=== PATIENT | female | born 1995 | race Caucasian/White ===

== ENCOUNTER → 2017-09-18 10:10 | Outpatient (CLI) | payer OTHER, SELFPAY ==
--- NOTE | 2017-09-18 10:42 | MR_ITS ---
MR knee RT wo con HISTORY: Right knee pain anterior posterior medial and lateral ITS.REASON: RIGHT MEDIAL KNEE PAIN ORDERING PHYSICIAN: Kylie Reynoso PATIENT AGE: 22 years COMPARISON: 09/04/2015 TECHNIQUE: Standard multiplanar multiecho sequences are performed without contrast. FINDINGS: The cruciate ligaments, collateral ligaments, patellar tendon, and quadriceps tendon have an unremarkable appearance. No evidence of meniscal tear. The patellar cartilage is well-preserved. No significant effusion. IMPRESSION: Negative MRI of the right knee. No evidence of internal derangement
== END ==
PROVIDERS: Family Provider Family Medicine; PCP Nurse Practitioner; Visit Provider Nurse Practitioner
DX: M25.561 Pain in right knee (principal)
CPT/HCPCS: 73721

== ENCOUNTER 2020-11-08 16:47 | Emergency (ER) | payer MEDICAID, SELFPAY ==
[2020-11-08 17:13] VITALS: BP 146/93; PULSE 104; RESP 17; TEMP 36.9; O2SAT 97; BMI 44.4
[2020-11-08 17:20] VITALS: BP 146/93; PULSE 104; RESP 17; TEMP 36.9; O2SAT 97
--- NOTE | 2020-11-08 17:39 | HMH.EDUTC ---
[facility] [place] Disposition Clinical Impression: Acute bronchitis Qualifiers: Bronchitis organism: unspecified organism Qualified Code(s): J20.9 - Acute bronchitis, unspecified Sinusitis Qualifiers: Sinusitis location: unspecified location Chronicity: acute Recurrence: non-recurrent Qualified Code(s): J01.90 - Acute sinusitis, unspecified Disposition: Home, Self-Care Condition on Discharge: Good Instructions: DI for Sinusitis, DI for Acute Bronchitis Additional Instructions: Drink plenty of fluids. Take tylenol or ibuprofen for pain or fever. Take the medications as directed. Follow up with your regular doctor. GO TO THE ER FOR ANY WORSENING SYMPTOMS Prescriptions: Brompheniramine/Pseudoephed/Dm [Bromfed Dm Cough Syrup] 5 ml PO Q6HP PRN #240 syrup PRN Reason: Cough Transmission Status: Received by [facility] methylPREDNISolone [Medrol] 4 mg PO DIRECTED 6 Days #21 tab.ds.pk Transmission Status: Received by [facility] Azithromycin [Z-Jose De Jesus 250mg Tab*] 250 mg PO UD DOSE PK #6 tab Transmission Status: Received by [facility] Referrals: Shailesh Nelson MD [Primary Care Provider] - Forms: Work/School Release Time of Disposition: 17:45 Medical Decision Making - Medical Records Medical records reviewed: No: I reviewed the patient's medical records. - Fady Inquiry Pt receiving controlled substance: No Vital Signs: 11/08/20 17:13 11/08/20 17:20 Temperature 98.4 F 98.4 F Temperature Source Oral Pulse Rate 104 H Pulse Rate [Left] 104 H Respiratory Rate 17 17 Blood Pressure 146/93 H Blood Pressure [Right Arm] 146/93 H Blood Pressure Mean [Right Arm] 110 02 Sat by Pulse Oximetry 97 [facility] [place] HPI - General Stated complaint: Productive cough,hoarse Time Seen by Provider: 11/08/20 17:39 Mode of Arrival: Ambulatory Source of Information: Patient Limitations: No Limitations Description of Symptoms (Recalled from Triage Doc. by RN): Pt states jeff she has sinus trouble with productive cough with large amount of phlegm, sore throat and congestion. Hx of Asthma. HEENT Symptoms (Recalled from RN notes): Yes Resp Symptoms (Recalled from RN notes): Yes Skin Symptoms (Recalled from RN notes): No MS Symptoms (Recalled from RN notes): No Functional Status (Recalled from RN notes): wnl - History of Present Illness Provider Complaint: She states that for the past 3 days she has had worsening chest and sinus congestion. She has a history of astham, so she is afraid that she will get sicker than she already is. She has been vaccinated against covid-19. - Related Data Home Medications Medication Instructions Recorded Confirmed drospirenone 3 mg-ethinyl 1 tab PO DAILY 02/09/19 04/16/19 estradiol 0.03 mg tablet hydrochlorothiazide 25 mg tablet 25 mg PO DAILY 02/09/19 04/16/19 Previous Rx's Medication Instructions Recorded Azithromycin [Z-Jose De Jesus 250mg Tab*] 250 mg PO UD DOSE PK #6 tab 11/08/20 Brompheniramine/Pseudoephed/Dm 5 ml PO Q6HP PRN #240 syrup 11/08/20 [Bromfed Dm Cough Syrup] methylPREDNISolone [Medrol] 4 mg PO DIRECTED 6 Days #21 11/08/20 tab.ds.pk Allergies Allergy/AdvReac Type Severity Reaction Status Date / Time No Known Allergies Allergy Verified 11/08/20 17:20 - Worker's Comp Is this a Worker's Comp case?: No [facility] History - Hepatitis A Screen Drug use history?: No High risk sexual behaviors?: No History of sexually transmitted infection?: No Currently employed?: No Childcare worker?: No Do you have indoor plumbing?: Yes Do you have electricity?: Yes Attestation statement:: This patient has been screened for Hepatitis A risk factors. I have reviewed the patient's past medical history: Yes Laterality Cases: Bilateral: Myringotomy (Ear Tubes) Other Surgeries: Yes: No Previous Surgery - Social History Smoking Status: Never smoker Alcohol Intake: never Substance Use Type: denies use Occupational Status: other Housing: house Househ
== END 2020-11-08 17:47 | disposition home or self-care (01) ==
PROVIDERS: Emergency Provider Nurse Practitioner Family; PCP Family Medicine
DX: J20.9 Acute bronchitis, unspecified (principal); J01.90 Acute sinusitis, unspecified; J45.909 Unspecified asthma, uncomplicated
CPT/HCPCS: 99202; G0463

== ENCOUNTER 2020-11-18 17:31 | Emergency (ER) | payer MEDICAID, SELFPAY ==
[2020-11-18 18:16] VITALS: BP 143/76; PULSE 108; RESP 20; TEMP 37.3; O2SAT 98; BMI 45.1
--- NOTE | 2020-11-18 18:39 | HMH.EDUTC ---
[facility] Disposition Clinical Impression: Viral pharyngitis Disposition: Home, Self-Care Condition on Discharge: Good Instructions: DI for Viral Pharyngitis Additional Instructions: Drink plenty of fluids. Take tylenol for pain or fever. Follow up with your regular doctor. GO TO THE ER FOR ANY WORSENING SYMPTOMS Prescriptions: Ondansetron [Zofran 4mg ODT] 4 mg PO Q8HP PRN #12 tab.rapdis PRN Reason: Nausea Transmission Status: Received by [facility] Referrals: Shailesh Nelson MD [Primary Care Provider] - Forms: Work/School Release Time of Disposition: 18:41 Medical Decision Making - Medical Records Medical records reviewed: No: I reviewed the patient's medical records. - Fady Inquiry Pt receiving controlled substance: No Vital Signs: 11/18/20 18:16 11/18/20 18:59 Temperature 99.1 F 0 F L Temperature Source Oral Pulse Rate 0 L Pulse Rate [Right] 108 H Respiratory Rate 20 0 L Blood Pressure 000/00 L Blood Pressure [Right Arm] 143/76 H Blood Pressure Mean [Right Arm] 98 02 Sat by Pulse Oximetry 98 Oxygen Delivery Method Room Air - Lab Data Lab results reviewed: Yes: I reviewed the patient's lab results. [facility] HPI - General Stated complaint: sore throat Time Seen by Provider: 11/18/20 18:39 Mode of Arrival: Ambulatory Source of Information: Patient Limitations: No Limitations Description of Symptoms (Recalled from Triage Doc. by RN): mom c/o sore throat and painful to swallow. HEENT Symptoms (Recalled from RN notes): Yes (sore throat) Resp Symptoms (Recalled from RN notes): No Skin Symptoms (Recalled from RN notes): No MS Symptoms (Recalled from RN notes): No Functional Status (Recalled from RN notes): na - History of Present Illness Provider Complaint: She states that for the past 2 days she has had a sore throat. She denies any fever/chills/n/v/d. - Related Data Home Medications Medication Instructions Recorded Confirmed drospirenone 3 mg-ethinyl 1 tab PO DAILY 02/09/19 04/16/19 estradiol 0.03 mg tablet hydrochlorothiazide 25 mg tablet 25 mg PO DAILY 02/09/19 04/16/19 Previous Rx's Medication Instructions Recorded Azithromycin [Z-Jose De Jesus 250mg Tab*] 250 mg PO UD DOSE PK #6 tab 11/08/20 Brompheniramine/Pseudoephed/Dm 5 ml PO Q6HP PRN #240 syrup 11/08/20 [Bromfed Dm Cough Syrup] methylPREDNISolone [Medrol] 4 mg PO DIRECTED 6 Days #21 11/08/20 tab.ds.pk Ondansetron [Zofran 4mg ODT] 4 mg PO Q8HP PRN #12 tab.rapdis 11/18/20 Allergies Allergy/AdvReac Type Severity Reaction Status Date / Time No Known Allergies Allergy Verified 11/08/20 17:20 - Worker's Comp Is this a Worker's Comp case?: No [facility] History - Hepatitis A Screen Drug use history?: No High risk sexual behaviors?: No History of sexually transmitted infection?: No Currently employed?: No Childcare worker?: No Do you have indoor plumbing?: Yes Do you have electricity?: Yes Attestation statement:: This patient has been screened for Hepatitis A risk factors. I have reviewed the patient's past medical history: Yes Laterality Cases: Bilateral: Myringotomy (Ear Tubes) Other Surgeries: Yes: No Previous Surgery - Social History Smoking Status: Never smoker Alcohol Intake: never Substance Use Type: denies use Occupational Status: other Housing: house Household Members: family Family Hx:: Non-contributory ROS Obtained: Yes All systems reviewed & no additional complaints - Constitutional Constitutional: Denies chills, Denies fever(s) - Eyes Eyes: Denies eye discharge - ENT Ears, Nose, Mouth, and Throat: Reports as per HPI - Cardiovascular Cardiovascular: Denies chest pain - Respiratory Respiratory: Denies chest congestion, Reports cough, Denies dyspnea, Denies stridor, Denies wheezing Physical Exam - General General appearance: alert, in no apparent distress - Head Head exam: atraumatic, normocephalic, normal inspection - Eye Eye exam
[2020-11-18 18:59] VITALS: BP 000/00; PULSE 0; RESP 0; TEMP -17.7; TEMP 0
== END 2020-11-18 19:03 | disposition home or self-care (01) ==
PROVIDERS: Emergency Provider Nurse Practitioner Family; PCP Family Medicine
DX: J02.9 Acute pharyngitis, unspecified (principal)
CPT/HCPCS: 99202; G0463

== ENCOUNTER 2020-11-28 11:54 | Emergency (ER) | payer MEDICAID, SELFPAY ==
[2020-11-28 12:00] VITALS: BP 135/89; PULSE 89; RESP 19; TEMP 36.9; O2SAT 98; BMI 43.9
--- NOTE | 2020-11-28 12:17 | HMH.EDUTC ---
[facility] [place] Disposition Clinical Impression: Sinusitis Qualifiers: Sinusitis location: unspecified location Chronicity: unspecified Qualified Code(s): J32.9 - Chronic sinusitis, unspecified Acute bronchitis Qualifiers: Bronchitis organism: unspecified organism Qualified Code(s): J20.9 - Acute bronchitis, unspecified Disposition: Home, Self-Care Condition on Discharge: Good Instructions: Sinusitis, DI for Sinusitis, Acute Bronchitis Additional Instructions: ? Start antibiotic today. Be sure to complete entire prescription even if feeling better ? Monitor temp. Tylenol every 4 hours as needed and / or ibuprofen every 6 hours as needed ( As long as your primary care physician has told you that it ok to take both. For fever/aches/pains ER if no less than 101 despite Tylenol or Motrin ? Humidifier/vaporizer or hot steamy shower ? Inhaler every 4-6 hours as needed like we discussed. If unsure how to use it, ask pharmacist to demonstrate how. Should help open airways and improve cough, wheezing, and shortness of breath ? Mucinex during the day for your cough and cough suppressant only at night. Be sure to drink lots of water. *Start steroid today. Helps with inflammation therefore, cough and wheezing. Follow directions on the package. Reviewed side effects. Patient reports taking them before. Follow up IMMEDIATELY for new or worsening of symptoms OR no noticeable improvement over the next 48-72 hours. 911 immediately for any life threatening symptoms such as chest pain or difficulty breathing Prescriptions: Amoxicillin/Potassium Clav [Augmentin 875-125 Tablet] 1 tab PO Q12H 7 Days #14 tab Transmission Status: Pending to [facility] predniSONE [Deltasone 10mg tablet] 10 mg PO BID 5 Days #10 tab Transmission Status: Pending to [facility] guaiFENesin [Mucinex 600mg tablet] 1 - 2 tab PO Q12H PRN #20 tab.er.12h PRN Reason: Congestion Transmission Status: Pending to [facility] Referrals: Shailesh Nelson MD [Primary Care Provider] - As needed Time of Disposition: 12:52 Medical Decision Making - Fady Inquiry Pt receiving controlled substance: No Fady was queried for this patient: No Vital Signs: 11/28/20 12:00 Temperature 98.4 F Temperature Source Oral Pulse Rate [Right Brachial] 89 Respiratory Rate 19 Blood Pressure [Right Arm] 135/89 Blood Pressure Mean [Right Arm] 104 Blood Pressure Source [Right Arm] Automatic Cuff Blood Pressure Position [Right Arm] Sitting 02 Sat by Pulse Oximetry 98 Oxygen Delivery Method Room Air Orders (Tests/Meds): ORDERS Category Date Time Status CXR 2 view (NOT portable) [XR chest 2V] Stat Exams 11/28/20 12:18 Taken Covid-19 Nasal PCR ([facility]) Routine Lab 11/28/20 12:20 Received - Radiology Data #1 Image(s): Chest Image Reviewed: Yes I have reviewed radiologist's interpretation No acute findings Medical Decision Narrative: Patient denies states that she is currently on her period [facility] [place] HPI - General Stated complaint: Cough; congestion Time Seen by Provider: 11/28/20 12:18 Mode of Arrival: Ambulatory Source of Information: Patient Limitations: No Limitations Description of Symptoms (Recalled from Triage Doc. by RN): PATIENT C/O COUGH AND CONGESTION. STATES SHE WAS TREATED FOR BRONCHITIS 2 WEEKS AGO BUT IS NOT BETTER HEENT Symptoms (Recalled from RN notes): Yes Resp Symptoms (Recalled from RN notes): Yes Skin Symptoms (Recalled from RN notes): No MS Symptoms (Recalled from RN notes): No Functional Status (Recalled from RN notes): WNL - History of Present Illness Provider Complaint: Patient states that she was seen about 2 weeks ago and Dx with Bronchitis States that she was give zpack and has since finished it but not got any better States that she is still having a cough, sinus congestion and pressure and at times she coughs up some mucous State that today she come back in to get checked due to no improvement - Related Data Home Medi
--- NOTE | 2020-11-28 12:18 | XR_ITS ---
PROCEDURE: XR CHEST 2V CLINICAL HISTORY: cough COMPARISON: No exams were available for comparison FINDINGS: The cardiomediastinal silhouette and pulmonary vascularity are within normal limits. Minimal thoracic curvature convex right. Calcification noted in the left axillary region could be due to a calcified lymph node. No acute bony abnormalities. IMPRESSION: No acute findings. Dictated by: Dain Murguia MD 11/28/2020 12:43 Dain Murguia MD in [place] 11/28/2020 12:43
[2020-11-28 12:56] VITALS: BP 135/89; PULSE 89; RESP 19; TEMP 36.9; O2SAT 98
== END 2020-11-28 12:59 | disposition home or self-care (01) ==
PROVIDERS: Emergency Provider Nurse Practitioner; PCP Family Medicine
DX: J20.9 Acute bronchitis, unspecified (principal); J32.9 Chronic sinusitis, unspecified
CPT/HCPCS: 71046; 99202; G0463; U0003

== ENCOUNTER 2021-07-19 14:15 | Emergency (ER) | payer MEDICAID, SELFPAY ==
[2021-07-19 14:34] VITALS: BP 141/86; PULSE 87; RESP 17; TEMP 36.9; O2SAT 100; BMI 42.7
[2021-07-19 14:39] LABS: UTC Strep Screen (Rapid) Positive (Negative)
--- NOTE | 2021-07-19 15:12 | HMH.EDUTC ---
[facility] [place] Clinical Impression: Strep throat Disposition: Home, Self-Care Condition on Discharge: Good Instructions: Strep Throat, DI for Strep Throat, Amoxicillin Additional Instructions: *Monitor Temp, Over the counter Motrin or Tylenol as directed/as needed Tylenol every 4 hours and Motrin every 6 hours (as long as your family doctor has told you that you can take it) for fever or pain. and straight to ER if unable to lower temp less than 101.0 after medication given *Warm salt water gargles may help to soothe the throat *Throat Lozenges *Warm fluids like tea with honey may help to soothe the throat *Sleep elevated *Humidifier/Vaporizer *If you did not take Penicillin shot or was unable to, start taking antibiotic immediately and make sure that you take it for the FULL length of time although you should start to feel better in 24-48 hours *change toothbrush and toothpaste 24-48 hours after starting to take antibiotics so you do not reinfect yourself Monitor Temp. Tylenol and/or Ibuprofen as needed. ER if fever is no less than 101 despite alternating Tylenol and Ibuprofen * Encourage fluids, water, Gatorade, powerade, pedialyte if /toddler/or child *Cold fluids, popsicles and ice cream may feel good on his throat Follow up IMMEDIATELY for new or worsening symptoms or no Noticeable improvement over the next 48-72 hours. 911 for difficulty breathing or swallowing Prescriptions: Benzonatate [Benzonatate 100mg cap] 100 mg PO Q8HP PRN #30 cap PRN Reason: Cough Transmission Status: Pending to [facility] Amoxicillin [Amoxicillin 875MG Tab] 875 mg PO Q12H #20 tab Transmission Status: Pending to [facility] Referrals: Provider,Referral, [Primary Care Provider] - As needed Time of Disposition: 15:22 Medical Decision Making - Fady Inquiry Pt receiving controlled substance: No Fady was queried for this patient: No Vital Signs: 07/19/21 14:34 Temperature 98.5 F Temperature Source Oral Pulse Rate [Right Brachial] 87 Respiratory Rate 17 Blood Pressure [Right Arm] 141/86 H Blood Pressure Mean [Right Arm] 104 Blood Pressure Source [Right Arm] Automatic Cuff Blood Pressure Position [Right Arm] Sitting 02 Sat by Pulse Oximetry 100 Oxygen Delivery Method Room Air - Lab Data Lab results reviewed: Yes: I reviewed the patient's lab results. Lab Results 07/19/21 14:32: Strep Scn Rapid [facility] Positive A [facility] [place] - General Stated complaint: sore throat, cough Time Seen by Provider: 07/19/21 15:12 Mode of Arrival: Ambulatory Source of Information: Patient Limitations: No Limitations Description of Symptoms (Recalled from Triage Doc. by RN): coughing, sore throat HEENT Symptoms (Recalled from RN notes): Yes Resp Symptoms (Recalled from RN notes): Yes Skin Symptoms (Recalled from RN notes): No MS Symptoms (Recalled from RN notes): No Functional Status (Recalled from RN notes): wnl - History of Present Illness Provider Complaint: Patient states that she hasnt felt well for a couple of days States that she has been having sore throat and cough States that today she was still not feeling well and her throat was hurting worse so she came in to get checked - Related Data Home Medications Medication Instructions Recorded Confirmed Escitalopram Oxalate [Lexapro] 10 mg PO DAILY 11/28/20 11/28/20 Previous Rx's Medication Instructions Recorded Amoxicillin/Potassium Clav 1 tab PO Q12H 7 Days #14 tab 11/28/20 [Augmentin 875-125 Tablet] guaiFENesin [Mucinex 600mg tablet] 1 - 2 tab PO Q12H PRN #20 11/28/20 tab.er.12h predniSONE [Deltasone 10mg tablet] 10 mg PO BID 5 Days #10 tab 11/28/20 Amoxicillin [Amoxicillin 875MG 875 mg PO Q12H #20 tab 07/19/21 Tab] Benzonatate [Benzonatate 100mg 100 mg PO Q8HP PRN #30 cap 07/19/21 cap] Allergies Allergy/AdvReac Type Severity Reaction Status Date / Time No Known Allergies Allergy Verified 11/08/20 17:20
[2021-07-19 15:13] VITALS: BP 141/86; PULSE 87; RESP 17; TEMP 36.9; O2SAT 100
== END 2021-07-19 15:13 | disposition home or self-care (01) ==
PROVIDERS: Emergency Provider Nurse Practitioner
DX: J02.0 Streptococcal pharyngitis (principal)
CPT/HCPCS: 87880; 99202; G0463

== ENCOUNTER 2021-10-21 10:22 | Emergency (ER) | payer MEDICAID, SELFPAY ==
[2021-10-21 10:30] VITALS: BP 154/93; PULSE 93; RESP 18; TEMP 36.8; O2SAT 98; BMI 43.0
--- NOTE | 2021-10-21 10:52 | HMH.EDUTC ---
[facility] [place] Disposition Clinical Impression: Strep pharyngitis Disposition: Home, Self-Care Condition on Discharge: Good Instructions: DI for Strep Throat Additional Instructions: Take all antibiotics as prescribed until gone Replace toothbrush Prescriptions: Amoxicillin [Amoxicillin 875MG Tab] 875 mg PO Q12H #20 tab Transmission Status: Pending to [facility] Fluconazole [Diflucan 150mg tab] 150 mg PO ONCE 1 Days #1 tab Transmission Status: Pending to [facility] Referrals: Jaiden Montenegro JR, MD [Primary Care Provider] - Time of Disposition: 11:05 Medical Decision Making - Fady Inquiry Pt receiving controlled substance: No Vital Signs: 10/21/21 10:30 Temperature 98.3 F Temperature Source Oral Pulse Rate [Left Brachial] 93 H Respiratory Rate 18 Blood Pressure [Left Arm] 154/93 H Blood Pressure Mean [Left Arm] 113 Blood Pressure Source [Left Arm] Automatic Cuff Blood Pressure Position [Left Arm] Sitting 02 Sat by Pulse Oximetry 98 Oxygen Delivery Method Room Air - Lab Data Lab results reviewed: Yes: I reviewed the patient's lab results. Orders (Tests/Meds): ORDERS Category Date Time Status Rapid Strep Scrn Group A [Strep Scrn Group A (Rapid)] Lab 10/21/21 10:39 Received Stat [facility] [place] HPI - General Stated complaint: sore throat/blisters Time Seen by Provider: 10/21/21 11:00 Mode of Arrival: Ambulatory Source of Information: Patient Limitations: No Limitations Description of Symptoms (Recalled from Triage Doc. by RN): PATIENT C/O SORE THROAT THAT STARTED YESTERDAY HEENT Symptoms (Recalled from RN notes): Yes Resp Symptoms (Recalled from RN notes): No Skin Symptoms (Recalled from RN notes): No MS Symptoms (Recalled from RN notes): No Functional Status (Recalled from RN notes): WNL - History of Present Illness Provider Complaint: Sore throat, fatigue, malaise since last night. Child has strep. No fever. History of frequent strep. Onset (ago): day(s) (1) Relieving factors: none Exacerbating factors: none Associated symptoms: denies other symptoms Treatments prior to arrival: none - Related Data Home Medications Medication Instructions Recorded Confirmed Escitalopram Oxalate [Lexapro] 10 mg PO DAILY 11/28/20 10/21/21 Previous Rx's Medication Instructions Recorded Amoxicillin [Amoxicillin 875MG 875 mg PO Q12H #20 tab 10/21/21 Tab] Fluconazole [Diflucan 150mg tab] 150 mg PO ONCE 1 Days #1 tab 10/21/21 Allergies Allergy/AdvReac Type Severity Reaction Status Date / Time No Known Allergies Allergy Verified 11/08/20 17:20 - Worker's Comp Is this a Worker's Comp case?: No [facility] History - Hepatitis A Screen Attestation statement:: This patient has been screened for Hepatitis A risk factors. I have reviewed the patient's past medical history: Yes Medical History: Denies:: Diabetes Mellitus Type 1, Diabetes Mellitus Type 2 Laterality Cases: Bilateral: Myringotomy (Ear Tubes) Other Surgeries: Yes: No Previous Surgery Amputation: No Fractures: No - Social History Smoking Status: Never smoker Alcohol Intake: never Substance Use Type: denies use Occupational Status: employed Housing: house Household Members: family Family Hx:: Non-contributory ROS Obtained: Yes All systems reviewed & no additional complaints - Constitutional Constitutional: Reports fatigue, Reports malaise - ENT Ears, Nose, Mouth, and Throat: Reports pain with swallowing, Reports sore throat Physical Exam - General General appearance: alert, in no apparent distress - Head Head exam: normocephalic - Eye Eye exam: Present: PERRL - ENT ENT exam: Present: TM's normal bilaterally - Expanded ENT Exam Throat exam: Present: tonsillar erythema, tonsillomegaly, tonsillar exudate - Neck Neck exam: Present: normal inspection, lymphadenopathy - Chest Chest inspection: Present: normal inspection, symmetric chest wall rise - Respiratory Re
[2021-10-21 10:57] LABS: Strep Scrn Group A (Rapid) Negative (Negative)
[2021-10-21 11:00] VITALS: BP 154/93; PULSE 93; RESP 18; TEMP 36.8; O2SAT 98
== END 2021-10-21 11:14 | disposition home or self-care (01) ==
PROVIDERS: Emergency Provider Physician Assistant; PCP Pediatrics
DX: J02.0 Streptococcal pharyngitis (principal)
CPT/HCPCS: 87430; 99212; G0463

== ENCOUNTER 2022-01-05 16:23 | Emergency (ER) | payer MEDICAID, SELFPAY ==
[2022-01-05 16:34] VITALS: BP 142/91; PULSE 74; RESP 17; TEMP 37.2; O2SAT 100; BMI 40.3
--- NOTE | 2022-01-05 16:54 | HMH.EDUTC ---
[facility] [place] Disposition Clinical Impression: Otitis media Qualifiers: Otitis media type: suppurative Chronicity: acute Laterality: bilateral Recurrence: non-recurrent Spontaneous tympanic membrane rupture: without spontaneous rupture Qualified Code(s): H66.003 - Acute suppurative otitis media without spontaneous rupture of ear drum, bilateral Disposition: Home, Self-Care Condition on Discharge: Good Instructions: Middle Ear Infection Additional Instructions: Drink plenty of fluids. Take tylenol or ibuprofen for pain or fever. Take the medications as directed. Follow up with your regular doctor. GO TO THE ER FOR ANY WORSENING SYMPTOMS Prescriptions: Brompheniramine/Pseudoephed/Dm [Bromfed Dm Cough Syrup] 5 ml PO Q6HP PRN #240 ml PRN Reason: Cough Transmission Status: Received by [facility] Amoxicillin [Amoxicillin 875MG Tab] 875 mg PO Q12H #20 tab Transmission Status: Received by [facility] methylPREDNISolone [Medrol] 4 mg PO DIRECTED 6 Days #21 packet Transmission Status: Received by [facility] Referrals: Jaiden Montenegro JR, MD [Primary Care Provider] - Time of Disposition: 17:04 Medical Decision Making - Medical Records Medical records reviewed: No: I reviewed the patient's medical records. - Fady Inquiry Pt receiving controlled substance: No Vital Signs: 01/05/22 16:34 01/05/22 17:05 Temperature 98.9 F 98.9 F Temperature Source Oral Pulse Rate 74 Pulse Rate [Left] 74 Respiratory Rate 17 17 Blood Pressure 142/91 H Blood Pressure [Right Arm] 142/91 H Blood Pressure Mean [Right Arm] 108 02 Sat by Pulse Oximetry 100 - Lab Data Lab results reviewed: Yes: I reviewed the patient's lab results. Lab Results 01/05/22 17:03: Chlamy pneumoniae PCR Not detected, Adenovirus (PCR) Not detected, B. pertussis DNA (PCR) Not detected, Coronavirus OC43 (PCR) Not detected, Coronavirus HKU1 (PCR) Not detected, Coronavirus 229E (PCR) Not detected, SARS-CoV-2 (PCR) Not detected, Coronavirus NL63 (PCR) Not detected, Human Metapneumovir PCR Not detected, Influenza A (H1) PCR Not detected, Influ A (H1N1/09) PCR Not detected, Influenza A (H3) PCR Not detected, Influenza Type A (PCR) Not detected, Influenza Type B (PCR) Not detected, M. pneumoniae (PCR) Not detected, Parainfluenza 1 (PCR) Not detected, Parainfluenza 2 (PCR) Not detected, Parainfluenza 3 (PCR) Not detected, Parainfluenza 4 (PCR) Not detected, RSV (PCR) Not detected, Entero/Rhino (PCR) Detected A 01/05/22 17:04: Strep Scn Rapid Clinic Negative [facility] [place] HPI - General Stated complaint: ear pain and ringing Time Seen by Provider: 01/05/22 16:35 Mode of Arrival: Ambulatory Source of Information: Patient Limitations: No Limitations Description of Symptoms (Recalled from Triage Doc. by RN): patient comes in with complaints of right ear pain and left ear ringing. symptoms began yesterday. HEENT Symptoms (Recalled from RN notes): Yes Resp Symptoms (Recalled from RN notes): No Skin Symptoms (Recalled from RN notes): No MS Symptoms (Recalled from RN notes): No Functional Status (Recalled from RN notes): n/a - History of Present Illness Provider Complaint: She is here with complaints of right ear pain for the past 2 days. - Related Data Home Medications Medication Instructions Recorded Confirmed Escitalopram Oxalate [Lexapro] 10 mg PO DAILY 11/28/20 01/05/22 Previous Rx's Medication Instructions Recorded Amoxicillin [Amoxicillin 875MG 875 mg PO Q12H #20 tab 01/05/22 Tab] Brompheniramine/Pseudoephed/Dm 5 ml PO Q6HP PRN #240 ml 01/05/22 [Bromfed Dm Cough Syrup] methylPREDNISolone [Medrol] 4 mg PO DIRECTED 6 Days #21 01/05/22 packet Allergies Allergy/AdvReac Type Severity Reaction Status Date / Time No Known Allergies Allergy Verified 01/05/22 16:39 - Worker's Comp Is this a Worker's Comp case?: No [facility] History - Hepatitis A Screen Attestation statement:: This patient h
[2022-01-05 17:05] VITALS: BP 142/91; PULSE 74; RESP 17; TEMP 37.2
[2022-01-05 17:05] LABS: UTC Strep Screen (Rapid) Negative (Negative)
[2022-01-05 17:20] LABS: Adenovirus,PCR Not Detected (NotDetected); Bordetella Pertussis Not Detected (NotDetected); Chlamydophila Pneumoniae, PCR Not Detected (NotDetected); Coronavirus 19, PCR Not Detected (NotDetected); Coronavirus 229E Not Detected (NotDetected); Coronavirus NL63 Not Detected (NotDetected); Coronavirus OC43 Not Detected (NotDetected); Coronovirus HKU1,PCR Not Detected (NotDetected); Human Metapneumovirus Not Detected (NotDetected); Influenza A, PCR Not Detected (NotDetected); Influenza AH1, 2009 Not Detected (NotDetected); Influenza AH1, PCR Not Detected (NotDetected); Influenza AH3,PCR Not Detected (NotDetected); Influenza B, PCR Not Detected (NotDetected); Mycoplasma Pneumoniae, PCR Not Detected (NotDetected); Parainfluenza 1, PCR Not Detected (NotDetected); Parainfluenza 2, PCR Not Detected (NotDetected); Parainfluenza 3, PCR Not Detected (NotDetected); Parainfluenza 4, PCR Not Detected (NotDetected); Respiratory Syncytial Virus Not Detected (NotDetected)
[2022-01-05 18:43] LABS: Rhinovirus/Enterovirus Detected (NotDetected)
== END 2022-01-05 17:11 | disposition home or self-care (01) ==
PROVIDERS: Emergency Provider Nurse Practitioner Family; PCP Pediatrics
DX: H66.003 Acute suppurative otitis media without spontaneous rupture of ear drum, bilateral (principal); H93.12 Tinnitus, left ear; B34.1 Enterovirus infection, unspecified; Z20.822 Contact with and (suspected) exposure to COVID-19; Z79.52 Long term (current) use of systemic steroids
CPT/HCPCS: 87581; 87632; 87798; 87880; 99213; C9803; G0463; U0003; U0005

== ENCOUNTER → 2022-02-15 20:24 | Outpatient (CLI) | payer MEDICAID, SELFPAY ==
[2022-02-15 21:08] LABS: Strep Scrn Group A (Rapid) Negative (Negative)
--- NOTE | 2022-02-15 21:17 | PC.NURSE ---
pt called for results of strep test results. notified of negative results
== END ==
PROVIDERS: PCP Nurse Practitioner Family; Visit Provider Emergency Medicine
DX: J02.9 Acute pharyngitis, unspecified (principal)
CPT/HCPCS: 87430

== ENCOUNTER 2022-02-18 18:05 | Emergency (ER) | payer MEDICAID, SELFPAY ==
--- NOTE | 2022-02-18 18:19 | EXP.UTC ---
Discharge Plan Disposition Patient Disposition: Home, Self-Care Condition: Good Prescriptions Prescriptions: New amoxicillin [amoxicillin] 500 mg tablet 500 mg PO TID 10 Days Qty: 30 0RF prednisone 10 mg tablet 10 mg PO BID 3 Days Qty: 6 0RF No Action escitalopram oxalate 10 MG tablet 10 mg PO DAILY amoxicillin 875 MG tablet 875 mg PO Q12H Qty: 20 0RF methylprednisolone 4 MG tablets,dose pack 4 mg PO DIRECTED 6 Days Qty: 21 0RF iucoqazmipzdsrt-oftghpyis-QN 118 ML syrup 5 ml PO Q6HP PRN (Reason: Cough) Qty: 240 0RF Referrals Follow up/Referrals: Yanelis Wilson APRN [Primary Care Provider] - See instructions Activity Restrictions/Add. Instructions Additional Instructions/Restrictions: Drink plenty of fluids. Take tylenol or ibuprofen for pain or fever. Take the medications as directed. Follow up with your regular doctor. GO TO THE ER FOR ANY WORSENING SYMPTOMS Clinical Impressions Clinical Impression: Pharyngitis Stand Alone Forms Stand Alone Forms: Work/School Release Instructions Patient Instructions: Sore Throat, DI for Pharyngitis/Tonsillopharyngitis -- Adult Discharge ED Provider: Shailesh Breaux [facility] General Stated complaint: throat pain Time Seen by Provider: 02/18/22 18:18 History of Present Illness Provider Complaint: She states that she has had a sore throat for the past 3 days. She has been exposed to mono. She denies any fever or chills. Related Data Home Medications Medication Instructions Recorded Confirmed escitalopram oxalate 10 mg tablet 10 mg PO DAILY Depression 11/28/20 01/05/22 Previous Rx's Medication Instructions Recorded amoxicillin 875 mg tablet 875 mg PO Q12H #20 tabs 01/05/22 dugzdhrujewqcyi-kdckkmdigxnkcgo-SN 5 ml PO Q6HP PRN Cough #240 mL 01/05/22 2 mg-30 mg-10 mg/5 mL oral syrup methylprednisolone 4 mg tablets in 4 mg PO DIRECTED 6 days #21 01/05/22 a dose pack packets amoxicillin 500 mg tablet 500 mg PO TID 10 days #30 tabs 02/18/22 prednisone 10 mg tablet 10 mg PO BID 3 days #6 tabs 02/18/22 Allergies Allergy/AdvReac Type Severity Reaction Status Date / Time No Known Allergies Allergy Verified 01/05/22 16:39 PFSH PFSH Medical History Anxiety Asthma Depression Hypertension Migraine Urinary tract infection Surgical History History of section History of tympanostomy tube placement Social History Smoking Status: Never smoker second hand exposure: No alcohol intake: never substance use type: denies use current occupational status: employed Travel in the last 8 weeks: None household members: family housing: house ROS Obtained: Yes All systems reviewed & no additional complaints except as documented Constitutional Constitutional: Reports chills and Reports fever(s) Eyes Eyes: Denies eye discharge ENT Ears, Nose, Mouth, and Throat: Reports as per HPI Cardiovascular Cardiovascular: Denies chest pain Respiratory Respiratory: Denies chest congestion and Reports cough Gastrointestinal Gastrointestingal: Reports nausea; Denies abdominal pain, constipation, cramping, diarrhea or vomiting Musculoskeletal Musculoskeletal: Denies arthralgias Integumentary/Breasts Skin/Breast: Denies rash Neurologic Neurologic: Denies paresthesias Physical Exam General General appearance: alert and in no apparent distress Head Head exam: atraumatic, normocephalic and normal inspection Eye Eye exam: Present normal appearance, PERRL and EOMI ENT ENT exam: Present mucous membranes moist and normal external ear exam Expanded ENT Exam TM/Canal exam: Bilateral TM: erythema and bulging Nose exam: Absent sinus tenderness Mouth exam: Present normal external inspection; Absent drooling Teeth exam: Present normal inspection
[2022-02-18 18:20] VITALS: BP 142/83; PULSE 91; RESP 20; TEMP 37.1; O2SAT 98; BMI 42.7
[2022-02-18 18:51] LABS: Monoscreen (Rapid) Negative (Negative)
[2022-02-18 19:00] VITALS: BP 142/83; PULSE 91; RESP 20; TEMP 37.1; O2SAT 98
[2022-02-18 19:11] LABS: UTC Strep Screen (Rapid) Negative (Negative)
== END 2022-02-18 19:13 | disposition home or self-care (01) ==
PROVIDERS: Nurse Practitioner Family; Emergency Provider Psychiatry & Neurology Clinical Neurophysiology; PCP Nurse Practitioner Family
DX: J02.9 Acute pharyngitis, unspecified (principal)
CPT/HCPCS: 86318; 87880; 99212; G0463

== ENCOUNTER 2022-03-17 09:20 | Emergency (ER) | payer MEDICAID, SELFPAY ==
[2022-03-17 09:26] VITALS: BP 145/98; PULSE 78; RESP 18; TEMP 37.1; O2SAT 99; BMI 40.7
--- NOTE | 2022-03-17 09:33 | EXP.UTC ---
Discharge Plan Disposition Patient Disposition: Home, Self-Care Condition: Good Prescriptions Prescriptions: New ibuprofen [IBU] 800 mg tablet 800 mg PO Q8HP PRN (Reason: Moderate Pain) Qty: 30 0RF No Action escitalopram oxalate 10 MG tablet 10 mg PO DAILY amoxicillin 875 MG tablet 875 mg PO Q12H Qty: 20 0RF methylprednisolone 4 MG tablets,dose pack 4 mg PO DIRECTED 6 Days Qty: 21 0RF frfjqgzztbosnlv-twcbfopvb-AJ 118 ML syrup 5 ml PO Q6HP PRN (Reason: Cough) Qty: 240 0RF amoxicillin [amoxicillin] 500 mg tablet 500 mg PO TID 10 Days Qty: 30 0RF prednisone 10 mg tablet 10 mg PO BID 3 Days Qty: 6 0RF norethindrone (contraceptive) 0.35 mg tablet 0.35 mg PO DAILY Referrals Follow up/Referrals: Yanelis Wilson APRN [Primary Care Provider] - See instructions Sameera Kaur DPM [Staff Physician] - See instructions Activity Restrictions/Add. Instructions Additional Instructions/Restrictions: Rest the extremity, apply ice for 15 minutes as tolerated three or four times per day, Wear the patricia wrap for compression, Elevate the extremity as tolerated while you are resting. Take ibuprofen for pain. I sent in a prescription to your pharmacy. Follow up with Dr. Kaur (podiatry). Sometimes there can be fractures that don't show up well on the first set of x-rays. I put in a referral but you need to call her office and schedule an appointment. Follow up with your regular doctor. GO TO THE ER FOR ANY WORSENING SYMPTOMS Clinical Impressions Clinical Impression: Sprain of foot, left Stand Alone Forms Stand Alone Forms: Work/School Release Instructions Patient Instructions: DI for Foot Sprain Discharge ED Provider: Ritchie Breaux [facility] General Stated complaint: left foot pain,unknown origin Mode of Arrival: Ambulatory Source of Information: Patient Limitations: No Limitations Time Seen by Provider: 03/17/22 09:33 Description of Symptoms (Recalled from Triage Doc. by RN): c/o left outer foot pain that started last night after she rolled it over while getting in the vehicle. History of Present Illness Provider Complaint: She is having left foot pain. Her symptoms began yesterday when she was putting her child's car seat into the car. She braced herself with her left foot on the ground, but then her foot and ankle twisted. She states that she felt a pop, then she started having her current symptoms. She denies ankle pain or soreness. She denies any other injury. Related Data Home Medications Medication Instructions Recorded Confirmed escitalopram oxalate 10 mg tablet 10 mg PO DAILY Depression 11/28/20 03/17/22 norethindrone (contraceptive) 0.35 0.35 mg PO DAILY control 03/17/22 03/17/22 mg tablet Previous Rx's Medication Instructions Recorded amoxicillin 875 mg tablet 875 mg PO Q12H #20 tabs 01/05/22 xvfbbqzvoixnjsh-hfzqfmlkfoalasy-JT 5 ml PO Q6HP PRN Cough #240 mL 01/05/22 2 mg-30 mg-10 mg/5 mL oral syrup methylprednisolone 4 mg tablets in 4 mg PO DIRECTED 6 days #21 01/05/22 a dose pack packets amoxicillin 500 mg tablet 500 mg PO TID 10 days #30 tabs 02/18/22 prednisone 10 mg tablet 10 mg PO BID 3 days #6 tabs 02/18/22 ibuprofen 800 mg tablet (IBU) 800 mg PO Q8HP PRN Moderate Pain 03/17/22 #30 tabs Allergies Allergy/AdvReac Type Severity Reaction Status Date / Time No Known Allergies Allergy Verified 03/17/22 09:36 [facility] Medical History Anxiety Asthma Depression Hypertension Migraine Urinary tract infection Surgical History History of section History of tympanostomy tube placement Social History Smoking Status: Never smoker second hand exposure: No alcohol intake: never substance use type: denies use current occupational status: employed
[2022-03-17 09:34] VITALS: BP 145/98; PULSE 78; RESP 18; TEMP 37.1; O2SAT 99; BMI 40.8
--- NOTE | 2022-03-17 09:34 | XR_ITS ---
PROCEDURE INFORMATION: Exam: XR Left Foot Exam date and time: 03/17/2022 9:33 AM Age: 26 years old Clinical indication: Difficulty in walking and swelling, leg or foot; Additional info: Rolled foot - pain and swelling TECHNIQUE: Imaging protocol: Radiologic exam of the Left foot. Views: 3 or more views. COMPARISON: No relevant prior studies available. FINDINGS: Bones/joints: There is no evidence of acute fracture.There is no evidence of malalignment or dislocation. Soft tissues: Normal. IMPRESSION: There is no evidence of acute fracture.There is no evidence of malalignment or dislocation.
[2022-03-17 10:53] VITALS: BP 145/98; PULSE 78; RESP 18; TEMP 37.1
== END 2022-03-17 10:53 | disposition home or self-care (01) ==
PROVIDERS: Emergency Provider Nurse Practitioner Family; PCP Nurse Practitioner Family
DX: S93.602A Unspecified sprain of left foot, initial encounter (principal); R50.9 Fever, unspecified; I10 Essential (primary) hypertension; G43.909 Migraine, unspecified, not intractable, without status migrainosus; J45.909 Unspecified asthma, uncomplicated; F32.A Depression, unspecified; F41.9 Anxiety disorder, unspecified; Z79.1 Long term (current) use of non-steroidal anti-inflammatories (NSAID); Z79.52 Long term (current) use of systemic steroids; Z79.899 Other long term (current) drug therapy; Z87.440 Personal history of urinary (tract) infections; W50.2XXA Accidental twist by another person, initial encounter
CPT/HCPCS: 73630; 99213; G0463

== ENCOUNTER 2022-04-22 10:07 | Emergency (ER) | payer MEDICAID, SELFPAY ==
[2022-04-22 11:45] VITALS: BP 151/89; PULSE 98; RESP 19; TEMP 36.8; O2SAT 97; BMI 43.2
[2022-04-22 12:10] LABS: UTC Influenza A Antigen Negative (Negative); UTC Influenza B Antigen Negative (Negative)
--- NOTE | 2022-04-22 12:10 | EXP.UTC ---
Discharge Plan Disposition Patient Disposition: Home, Self-Care Condition: Good Prescriptions Prescriptions: New methylprednisolone [Medrol (Jose De Jesus)] 4 mg tablets,dose pack See Rx Instructions .Route .COMPLEX 6 Days Qty: 21 0RF Rx Instructions: taper pack; amoxicillin-pot clavulanate 875-125 mg Tablet 1 tab PO Q12H Qty: 20 0RF guaifenesin [Mucinex] 600 mg tablet extended release 12hr 600 mg PO BID PRN (Reason: cough) Qty: 20 0RF No Action escitalopram oxalate 10 MG tablet 10 mg PO DAILY Referrals Follow up/Referrals: Yanelis Wilson APRN [Primary Care Provider] - See instructions Activity Restrictions/Add. Instructions Additional Instructions/Restrictions: Start antibiotic today. Be sure to complete entire prescription even if feeling better Monitor temp. Tylenol every 4 hours as needed and / or ibuprofen every 6 hours as needed ( As long as your primary care physician has told you that it ok to take both. For fever/aches/pains ER if no less than 101 despite Tylenol or Motrin Humidifier/vaporizer or hot steamy shower Mucinex for your cough and chest congestion Be sure to drink lots of water. *Start steroid today. Helps with inflammation therefore, cough and wheezing. Follow directions on the package. Reviewed side effects. Patient reports taking them before. Follow up IMMEDIATELY for new or worsening of symptoms OR no noticeable improvement over the next 48-72 hours. 911 immediately for any life threatening symptoms such as chest pain or difficulty breathing Clinical Impressions Clinical Impression: Acute bronchitis Qualifiers: Bronchitis organism: unspecified organism Qualified Code(s): J20.9 - Acute bronchitis, unspecified Stand Alone Forms Stand Alone Forms: Work/School Release Instructions Patient Instructions: Acute Bronchitis, Cough Discharge ED Provider: Daisy Bedoya [facility] [place] HPI General Stated complaint: Cough w/ drainage Mode of Arrival: Ambulatory Source of Information: Patient Limitations: No Limitations Time Seen by Provider: 04/22/22 12:10 Description of Symptoms (Recalled from Triage Doc. by RN): PATIENT C/O COUGH WITH MUCOUS X 1 WEEK HEENT Symptoms (Recalled from RN notes): No Resp Symptoms (Recalled from RN notes): Yes Skin Symptoms (Recalled from RN notes): No MS Symptoms (Recalled from RN notes): No Functional Status (Recalled from RN notes): WNL History of Present Illness Provider Complaint: Patient state that she has been having a cough and at times she is able to cough up some mucous State that she feels like it did when she has bronchitis States that today she was feeling achy all over so she came in Related Data Home Medications Medication Instructions Recorded Confirmed escitalopram oxalate 10 mg tablet 10 mg PO DAILY Depression 11/28/20 04/22/22 Previous Rx's Medication Instructions Recorded amoxicillin 875 mg-potassium 1 tab PO Q12H #20 tabs 04/22/22 clavulanate 125 mg tablet guaifenesin 600 mg tablet, 600 mg PO BID PRN cough #20 tabs 04/22/22 extended release 12 hr (Mucinex) methylprednisolone 4 mg tablets in See Rx Instructions .Route 04/22/22 a dose pack (Medrol (Jose De Jesus)) .COMPLEX 6 days #21 tabs Allergies Allergy/AdvReac Type Severity Reaction Status Date / Time No Known Allergies Allergy Verified 03/17/22 09:36 Worker's Comp Is this a Worker's Comp case?: No PFSH PFSH Medical History Anxiety Asthma Depression Hypertension Migraine Urinary tract infection Surgical History History of section History of tympanostomy tube placement Social History (Updated 04/22/22 @ 12:06 by Carrie Patino RN) Smoking Status: Never smoker second hand exposure: No alcohol intake: never substance use type: denies use current occupational status: employed
[2022-04-22 12:20] VITALS: BP 151/89; PULSE 98; RESP 19; TEMP 36.8; O2SAT 97
[2022-04-22 12:28] LABS: Adenovirus,PCR Not Detected (NotDetected); Bordetella Pertussis Not Detected (NotDetected); Chlamydophila Pneumoniae, PCR Not Detected (NotDetected); Coronavirus 19, PCR Not Detected (NotDetected); Coronavirus 229E Not Detected (NotDetected); Coronavirus NL63 Not Detected (NotDetected); Coronavirus OC43 Not Detected (NotDetected); Coronovirus HKU1,PCR Not Detected (NotDetected); Human Metapneumovirus Not Detected (NotDetected); Influenza A, PCR Not Detected (NotDetected); Influenza AH1, 2009 Not Detected (NotDetected); Influenza AH1, PCR Not Detected (NotDetected); Influenza AH3,PCR Not Detected (NotDetected); Influenza B, PCR Not Detected (NotDetected); Mycoplasma Pneumoniae, PCR Not Detected (NotDetected); Parainfluenza 1, PCR Not Detected (NotDetected); Parainfluenza 2, PCR Not Detected (NotDetected); Parainfluenza 3, PCR Not Detected (NotDetected); Parainfluenza 4, PCR Not Detected (NotDetected); Respiratory Syncytial Virus Not Detected (NotDetected)
[2022-04-22 17:23] LABS: Rhinovirus/Enterovirus Detected (NotDetected)
== END 2022-04-22 12:24 | disposition home or self-care (01) ==
PROVIDERS: Emergency Provider Nurse Practitioner; PCP Nurse Practitioner Family
DX: R05.9 Cough, unspecified (principal); B97.10 Unspecified enterovirus as the cause of diseases classified elsewhere; M79.10 Myalgia, unspecified site; R09.81 Nasal congestion; Z20.822 Contact with and (suspected) exposure to COVID-19; I10 Essential (primary) hypertension; G43.909 Migraine, unspecified, not intractable, without status migrainosus; J45.909 Unspecified asthma, uncomplicated; F32.A Depression, unspecified; F41.9 Anxiety disorder, unspecified; Z79.52 Long term (current) use of systemic steroids; Z79.899 Other long term (current) drug therapy
CPT/HCPCS: 87581; 87632; 87798; 87804; 99213; C9803; G0463; U0003; U0005

== ENCOUNTER 2022-08-09 09:06 | Emergency (ER) | payer MEDICAID, SELFPAY ==
[2022-08-09 09:15] VITALS: BP 148/83; PULSE 88; RESP 20; TEMP 37.1; O2SAT 97; BMI 42.8
--- NOTE | 2022-08-09 09:24 | EXP.UTC ---
Discharge Plan Disposition Patient Disposition: Home, Self-Care Condition: Good Prescriptions Prescriptions: New ofloxacin 0.3 % drops See Rx Instructions .ROUTE .COMPLEX Qty: 5 0RF Rx Instructions: put 2 drps into affected eye every 2 h x 2 days, then 1 drp 4 times/day days 3-7 No Action escitalopram oxalate 10 MG tablet 10 mg PO DAILY Referrals Follow up/Referrals: Yanelis Wilson APRN [Primary Care Provider] - See instructions Activity Restrictions/Add. Instructions Additional Instructions/Restrictions: Use the eye drops as directed. Strict hand washing in the house hold, because conjunctivitis is very contagious. Follow up with your regular doctor. GO TO THE ER FOR ANY WORSENING SYMPTOMS OR CONCERNS Clinical Impressions Clinical Impression: Conjunctivitis of right eye Stand Alone Forms Stand Alone Forms: Work/School Release Instructions Patient Instructions: How to Instill Eye Drops Discharge ED Provider: Ritchie Breaux [facility] General Stated complaint: RT eye redness w/drainage Mode of Arrival: Ambulatory Source of Information: Patient Limitations: No Limitations Time Seen by Provider: 08/09/22 09:24 Description of Symptoms (Recalled from Triage Doc. by RN): right pink eye HEENT Symptoms (Recalled from RN notes): Yes Resp Symptoms (Recalled from RN notes): No Skin Symptoms (Recalled from RN notes): No MS Symptoms (Recalled from RN notes): No Functional Status (Recalled from RN notes): n/a History of Present Illness Provider Complaint: She states that for the past 1 day she has had right eye irritation and redness. She denies any injury or foreign body. She works at the [employer] and she has been exposed to pink eye many times recently. Related Data Home Medications Medication Instructions Recorded Confirmed escitalopram oxalate 10 mg tablet 10 mg PO DAILY Depression 11/28/20 08/09/22 Previous Rx's Medication Instructions Recorded ofloxacin 0.3 % eye drops See Rx Instructions ophthalmic 08/09/22 (eye) .COMPLEX #5 mL Allergies Allergy/AdvReac Type Severity Reaction Status Date / Time No Known Allergies Allergy Verified 08/09/22 09:24 Worker's Comp Is this a Worker's Comp case?: No [facility] Disclaimer: The information contained in this section may have been updated after the patient was seen, as this information can be updated by other users. Medical History Anxiety Asthma Depression Hypertension Migraine Urinary tract infection Surgical History History of section History of tympanostomy tube placement Social History Smoking Status: Never smoker second hand exposure: No alcohol intake: never substance use type: denies use current occupational status: employed Travel in the last 8 weeks: None household members: family housing: house ROS Obtained: Yes All systems reviewed & no additional complaints except as documented Constitutional Constitutional: Denies chills and Denies fever(s) Eyes Eyes: Reports eye discharge ENT Ears, Nose, Mouth, and Throat: Denies dizziness, Denies otalgia and Denies sore throat Cardiovascular Cardiovascular: Denies chest pain Respiratory Respiratory: Denies shortness of breath, Denies chest congestion, Denies cough, Denies stridor and Denies wheezing Gastrointestinal Gastrointestingal: Denies nausea or vomiting Musculoskeletal Musculoskeletal: Reports system reviewed and no additional complaints, except as documented and Denies arthralgias Integumentary/Breasts Skin/Breast: Denies rash Neurologic Neurologic: Denies dizziness and Denies paresthesias Allergic/Immunologic Allergic/Immunologic: Denies wheezing Physical Exam General General appearance: alert and in no apparent distress Head Head exam: atraumatic,
[2022-08-09 09:47] VITALS: BP 148/83; PULSE 88; RESP 20; TEMP 37.1; O2SAT 97
== END 2022-08-09 09:46 | disposition home or self-care (01) ==
PROVIDERS: Emergency Provider Nurse Practitioner Family; PCP Nurse Practitioner Family
DX: H10.31 Unspecified acute conjunctivitis, right eye (principal)
CPT/HCPCS: 99212; 99214; G0463

== ENCOUNTER 2022-08-11 16:53 | Emergency (ER) | payer MEDICAID, SELFPAY ==
[2022-08-11 16:55] VITALS: BP 155/79; PULSE 95; RESP 19; TEMP 37.1; O2SAT 99; BMI 42.7
[2022-08-11 17:17] LABS: UTC Strep Screen (Rapid) Negative (Negative)
--- NOTE | 2022-08-11 17:19 | EXP.UTC ---
Discharge Plan Disposition Patient Disposition: Home, Self-Care Condition: Good Prescriptions Prescriptions: New amoxicillin [amoxicillin] 500 mg tablet 500 mg PO BID 10 Days Qty: 20 0RF No Action escitalopram oxalate 10 MG tablet 10 mg PO DAILY ofloxacin 0.3 % drops See Rx Instructions .ROUTE .COMPLEX Qty: 5 0RF Rx Instructions: put 2 drps into affected eye every 2 h x 2 days, then 1 drp 4 times/day days 3-7 Referrals Follow up/Referrals: Yanelis Wilson APRN [Primary Care Provider] - See instructions Activity Restrictions/Add. Instructions Additional Instructions/Restrictions: Start antibiotics today be sure to take it as ordered with the full length of time although you should start feeling better in 24-48 hours. Change toothbrush and toothpaste 24-48 hours after starting antibiotics Tylenol or Motrin as needed for fever or pain Encourage fluids, water, Gatorade, Powerade, try cold fluids, popsicles, ice cream will make it feel better You are contagious for 24 hours. Avoid kissing anyone, no eating or drinking after anyone. You are contagious. Follow-up the ER for new or worsening symptoms or no noticeable improvement over the next 24-48 hours. Follow-up with PCP this week. Clinical Impressions Clinical Impression: Strep throat Instructions Patient Instructions: DI for Strep Throat Discharge ED Provider: Amanda ([facility])Adriane [facility] [place] HPI General Stated complaint: Sore throat Mode of Arrival: Ambulatory Source of Information: Patient Limitations: No Limitations Time Seen by Provider: 08/11/22 17:19 Description of Symptoms (Recalled from Triage Doc. by RN): PATIENT C/O SORE THROAT WITH WHITE SPOTS X 2 DAYS HEENT Symptoms (Recalled from RN notes): Yes Resp Symptoms (Recalled from RN notes): No Skin Symptoms (Recalled from RN notes): No MS Symptoms (Recalled from RN notes): No Functional Status (Recalled from RN notes): WNL History of Present Illness Provider Complaint: 27 yr old female presents for sore throat for 2 days, has been exposed to strep Related Data Home Medications Medication Instructions Recorded Confirmed escitalopram oxalate 10 mg tablet 10 mg PO DAILY Depression 11/28/20 08/09/22 Previous Rx's Medication Instructions Recorded ofloxacin 0.3 % eye drops See Rx Instructions ophthalmic 08/09/22 (eye) .COMPLEX #5 mL amoxicillin 500 mg tablet 500 mg PO BID 10 days #20 tabs 08/11/22 Allergies Allergy/AdvReac Type Severity Reaction Status Date / Time No Known Allergies Allergy Verified 08/09/22 09:24 Worker's Comp Is this a Worker's Comp case?: No [facility] Disclaimer: The information contained in this section may have been updated after the patient was seen, as this information can be updated by other users. 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) Smoking Status: Never smoker second hand exposure: No alcohol intake: never substance use type: denies use current occupational status: employed Travel in the last 8 weeks: None household members: family housing: house ROS Obtained: Yes All systems reviewed & no additional complaints except as documented Constitutional Constitutional: Reports system reviewed and no additional complaints, except as documented Eyes Eyes: Reports system reviewed and no additional complaints, except as documented ENT Ears, Nose, Mouth, and Throat: Reports system reviewed and no additional complaints, except as documented, Reports as per HPI and Reports sore throat Cardiovascular Cardiovascular: Reports system reviewed and no additional complaints, except as documented
[2022-08-11 17:25] VITALS: BP 155/79; PULSE 95; RESP 19; TEMP 37.1; O2SAT 99
== END 2022-08-11 17:28 | disposition home or self-care (01) ==
PROVIDERS: Emergency Provider Nurse Practitioner Family; PCP Nurse Practitioner Family
DX: J02.0 Streptococcal pharyngitis (principal)
CPT/HCPCS: 87880; 99212; 99214; G0463

== ENCOUNTER 2022-10-14 13:38 | Emergency (ER) | payer MEDICAID, SELFPAY ==
[2022-10-14 13:39] VITALS: BP 144/91; PULSE 93; RESP 18; TEMP 36.7; O2SAT 100; BMI 43.5
--- NOTE | 2022-10-14 13:47 | EXP.UTC ---
Discharge Plan Disposition Patient Disposition: Home, Self-Care Condition: Good Prescriptions Prescriptions: New amoxicillin [amoxicillin] 875 mg tablet 875 mg PO Q12H Qty: 20 0RF Referrals Follow up/Referrals: Yanelis Wilson APRN [Primary Care Provider] - See instructions Activity Restrictions/Add. Instructions Additional Instructions/Restrictions: Drink plenty of fluids. Take tylenol or ibuprofen for pain or fever. Take the medications as directed. Follow up with your regular doctor. GO TO THE ER FOR ANY WORSENING SYMPTOMS Throw your tooth brush away and get a new one. Clinical Impressions Clinical Impression: Strep throat Stand Alone Forms Stand Alone Forms: Work/School Release Instructions Patient Instructions: DI for Strep Throat Discharge ED Provider: [facility] [place] HPI General Stated complaint: sore throat,losing voice Time Seen by Provider: 10/14/22 13:47 History of Present Illness Provider Complaint: She states that for the past 4 days she has had sore throat, sinus congestion and a cough. Related Data Previous Rx's Medication Instructions Recorded amoxicillin 875 mg tablet 875 mg PO Q12H #20 tabs 10/14/22 Allergies Allergy/AdvReac Type Severity Reaction Status Date / Time No Known Allergies Allergy Verified 10/14/22 14:00 [facility] Disclaimer: The information contained in this section may have been updated after the patient was seen, as this information can be updated by other users. Medical History Anxiety Asthma Depression Hypertension Migraine Urinary tract infection Surgical History History of section History of tympanostomy tube placement Social History Smoking Status: Never smoker second hand exposure: No alcohol intake: never substance use type: denies use current occupational status: employed Travel in the last 8 weeks: None household members: family housing: house ROS Obtained: Yes All systems reviewed & no additional complaints except as documented Constitutional Constitutional: Reports chills and Reports fever(s) Eyes Eyes: Denies eye discharge ENT Ears, Nose, Mouth, and Throat: Reports as per HPI Cardiovascular Cardiovascular: Denies chest pain Respiratory Respiratory: Denies chest congestion and Reports cough Gastrointestinal Gastrointestingal: Reports nausea; Denies abdominal pain, constipation, cramping, diarrhea or vomiting Musculoskeletal Musculoskeletal: Denies arthralgias Integumentary/Breasts Skin/Breast: Denies rash Neurologic Neurologic: Denies paresthesias Physical Exam General General appearance: alert and in no apparent distress Head Head exam: atraumatic, normocephalic and normal inspection Eye Eye exam: Present normal appearance, PERRL and EOMI ENT ENT exam: Present mucous membranes moist and normal external ear exam Expanded ENT Exam TM/Canal exam: Bilateral TM: erythema and bulging Nose exam: Absent sinus tenderness Mouth exam: Present normal external inspection; Absent drooling Teeth exam: Present normal inspection Throat exam: Present tonsillar erythema, tonsillomegaly and tonsillar exudate Neck Neck exam: Present normal inspection, full ROM and trachea midline; Absent tenderness, meningismus or lymphadenopathy Chest Chest inspection: Present normal inspection and symmetric chest wall rise; Absent tenderness Respiratory Respiratory exam: Present normal lung sounds bilaterally; Absent respiratory distress, wheezes or stridor Cardiovascular Cardiovascular exam: Present regular rate and normal rhythm; Absent systolic murmur or diastolic murmur Abdominal Exam Abdominal exam: Present soft and normal bowel sounds; Absent distention, tenderness, guarding, rebound or rigidity Extremities Exam Extremities exam: Present patricia
[2022-10-14 14:01] LABS: UTC Strep Screen (Rapid) Positive (Negative)
[2022-10-14 14:20] VITALS: BP 144/91; PULSE 93; RESP 18; TEMP 36.7; O2SAT 100
== END 2022-10-14 14:19 | disposition home or self-care (01) ==
PROVIDERS: Emergency Provider Nurse Practitioner Family; PCP Nurse Practitioner Family
DX: J02.0 Streptococcal pharyngitis (principal); R05.9 Cough, unspecified; I10 Essential (primary) hypertension; J45.909 Unspecified asthma, uncomplicated; F41.9 Anxiety disorder, unspecified; F32.9 Major depressive disorder, single episode, unspecified
CPT/HCPCS: 87880; 99212; 99214; G0463

== ENCOUNTER 2023-01-08 13:13 | Emergency (ER) | payer MEDICAID, SELFPAY ==
[2023-01-08 13:13] VITALS: BP 140/84; PULSE 95; RESP 18; TEMP 36.9; O2SAT 98; BMI 43.4
[2023-01-08 13:59] LABS: Coronavirus 19, PCR Not Detected (NotDetected); Influenza A, PCR Not Detected (NotDetected); Influenza B, PCR Not Detected (NotDetected)
--- NOTE | 2023-01-08 14:20 | EXP.UTC ---
Discharge Plan Disposition Patient Disposition: Home, Self-Care Condition: Good Prescriptions Prescriptions: New cefdinir 300 mg capsule 300 mg PO BID Qty: 20 0RF No Action amoxicillin [amoxicillin] 875 mg tablet 875 mg PO Q12H Qty: 20 0RF Referrals Follow up/Referrals: Yanelis Wilson APRN [Primary Care Provider] - See instructions Activity Restrictions/Add. Instructions Additional Instructions/Restrictions: *Monitor Temp, Over the counter Motrin or Tylenol as directed/as needed Tylenol every 4 hours and Motrin every 6 hours (as long as your family doctor has told you that you can take it) for fever or pain. and straight to ER if unable to lower temp less than 101.0 after medication given *Warm salt water gargles may help to soothe the throat *Throat Lozenges? *Warm fluids like tea with honey may help to soothe the throat? *Sleep elevated *Humidifier/Vaporizer Take medication as prescribed Follow up IMMEDIATELY for new or worsening symptoms or no Noticeable improvement over the next 48-72 hours. 911 for difficulty breathing or swallowing You were tested for today for COVID19 your test result should be back in the next 24 You may check your results on the [facility] Portal Clinical Impressions Clinical Impression: Sinusitis Qualifiers: Sinusitis location: unspecified location Chronicity: unspecified Qualified Code(s): J32.9 - Chronic sinusitis, unspecified Stand Alone Forms Stand Alone Forms: Work/School Release Instructions Patient Instructions: DI for Sinusitis, Sinusitis Discharge ED Provider: Daisy Bedoya [facility] General Stated complaint: congestion Mode of Arrival: Ambulatory Source of Information: Patient Limitations: No Limitations Time Seen by Provider: 01/08/23 14:20 Description of Symptoms (Recalled from Triage Doc. by RN): Patient reports having congestion, fatigue, and body aches. HEENT Symptoms (Recalled from RN notes): Yes Resp Symptoms (Recalled from RN notes): No Skin Symptoms (Recalled from RN notes): No MS Symptoms (Recalled from RN notes): No Functional Status (Recalled from RN notes): wnl History of Present Illness Provider Complaint: Patient states that she has been having sinus congestion and pressure since last week States that over the weekend she started feeling worse States that she is 28wks OB states that she has been having fatigue, body aches, chills, sinus congestion and pressure and cough and at times she will cough up some mucous Related Data Previous Rx's Medication Instructions Recorded amoxicillin 875 mg tablet 875 mg PO Q12H #20 tabs 10/14/22 cefdinir 300 mg capsule 300 mg PO BID #20 caps 01/08/23 Allergies Allergy/AdvReac Type Severity Reaction Status Date / Time No Known Allergies Allergy Verified 10/14/22 14:00 Worker's Comp Is this a Worker's Comp case?: No [facility] Disclaimer: The information contained in this section may have been updated after the patient was seen, as this information can be updated by other users. Medical History Anxiety Asthma Depression Hypertension Migraine Urinary tract infection Surgical History History of section History of tympanostomy tube placement Social History Smoking Status: Never smoker second hand exposure: No alcohol intake: never substance use type: denies use current occupational status: employed Travel in the last 8 weeks: None household members: family housing: house ROS Obtained: Yes All systems reviewed & no additional complaints except as documented and Yes Systems reviewed as appropriate & no additional complaints except as documented Constitutional Constitutional: Reports system reviewed and no additional complaints, except as documented, Repor
[2023-01-08 14:32] VITALS: BP 140/84; PULSE 95; RESP 18; TEMP 36.9; O2SAT 98
== END 2023-01-08 14:33 | disposition home or self-care (01) ==
PROVIDERS: Emergency Provider Nurse Practitioner; PCP Nurse Practitioner Family
DX: O26.892 Other specified pregnancy related conditions, second trimester (principal); O99.512 Diseases of the respiratory system complicating pregnancy, second trimester; J01.90 Acute sinusitis, unspecified; Z3A.26 26 weeks gestation of pregnancy; I10 Essential (primary) hypertension; J45.909 Unspecified asthma, uncomplicated; F41.9 Anxiety disorder, unspecified; F32.A Depression, unspecified
CPT/HCPCS: 87636; 99212; 99214; G0463

== ENCOUNTER 2023-11-18 16:00 | Outpatient (RCR) | payer MEDICAID, SELFPAY | END 2023-11-18 17:05 | disposition home or self-care (01) | LOC: PT 16:00 | PROVIDERS: Visit Provider Nurse Practitioner Family | DX: M53.3 Sacrococcygeal disorders, not elsewhere classified (principal) | CPT/HCPCS: 97010; 97014; 97035; 97110; 97163; 97164; G0283 ==

== ENCOUNTER 2023-11-21 15:13 | Outpatient (CLI) | payer MEDICAID, SELFPAY ==
[2023-11-21 15:43] LABS: Basophils # 0.1 K/mm3 (0-0.2); Basophils % 0.5 % (0.1-2.0); Eosinophils # 0.5 K/mm3 (0.0-0.4); Eosinophils % 3.4 % (0.1-12.0); Hematocrit 38.8 % (37.0-47.0); Hemoglobin 13.5 g/dL (12.2-16.2); Lymphocytes % 33.2 % (10-50); Mean Corpuscular HGB Conc 34.7 g/dL (31.8-35.4); Mean Corpuscular Hemoglobin 29.3 pg (27.0-31.2); Mean Corpuscular Volume 84.5 fl (81-99); Mean Platelet Volume 6.7 fl (7.4-10.4); Monocytes # 0.7 K/mm3 (0.1-1.0); Monocytes % 4.3 % (1.7-9.3); Neutrophils # 8.8 K/mm3 (1.8-7.8); Neutrophils % 58.6 % (37.0-80.0); Platelet Count 371 K/mm3 (142-424); Red Blood Count 4.59 M/mm3 (4.20-5.40); Red Cell Distribution Width 13.7 % (11.5-17.5); White Blood Count 15.1 K/mm3 (4.8-10.8)
[2023-11-21 15:48] LABS: MANUAL DIFFERENTIAL MANUAL DIFFERENTIAL (MANUAL DIFF)
[2023-11-21 16:00] LABS: Eosinophils % 2 % (0-3); Lymphocytes % 39 % (10-50); Monocytes % 5 % (2-9); Neutrophils % 54 % (42-76); Total Cells Counted 100
[2023-11-21 16:01] LABS: Platelet Estimate Normal; RBC Morphology Normal
[2023-11-23 15:32] LABS: Peripheral Smear Review Scanned Result
== END 2023-11-21 23:59 | disposition home or self-care (01) ==
LOC: LAB 15:15
PROVIDERS: PCP Nurse Practitioner Family; Visit Provider Nurse Practitioner Family
DX: D72.829 Elevated white blood cell count, unspecified (principal)
CPT/HCPCS: 36415; 85007; 85025; 85027

== ENCOUNTER 2023-12-03 13:47 | Outpatient (CLI) | payer MEDICAID, SELFPAY ==
--- NOTE | 2023-12-03 | XR_ITS ---
FINAL REPORT CLINICAL HISTORY: lt hip pain COMPARISON: None FINDINGS: LEFT HIP: Two views of the left hip with an AP view of the pelvis demonstrate no acute fracture or dislocation. The joint spaces appear normal. The visualized bony structures are well aligned. No soft tissue abnormality is seen. IMPRESSION: No acute bony abnormality. Reviewed, Interpreted and Dictated by Dontrell Chery III, MD Transcribed by Anabela Mejia Authenticated and . [facility]
--- NOTE | 2023-12-03 | XR_ITS ---
FINAL REPORT CLINICAL HISTORY: lt hip pain COMPARISON: None FINDINGS: SACROILIAC JOINTS SERIES Three views were obtained. There is no acute fracture or dislocation. There is mild degenerative change with mild spurring, right worse than left. The visualized bony structures are well aligned. No soft tissue abnormality is seen. IMPRESSION: Mild degenerative changes without acute bony abnormality. Reviewed, Interpreted and Dictated by Dontrell Chery III, MD Transcribed by Anabela Mejia Authenticated and [facility]
[2023-12-03 14:08] LABS: Basophils # 0.1 K/mm3 (0-0.2); Basophils % 0.8 % (0.1-2.0); Eosinophils # 0.4 K/mm3 (0.0-0.4); Eosinophils % 2.8 % (0.1-12.0); Hematocrit 39.9 % (37.0-47.0); Hemoglobin 13.7 g/dL (12.2-16.2); Lymphocytes # 4.7 K/mm3 (0.7-4.5); Lymphocytes % 29.6 % (10-50); Mean Corpuscular HGB Conc 34.5 g/dL (31.8-35.4); Mean Corpuscular Hemoglobin 28.9 pg (27.0-31.2); Mean Corpuscular Volume 83.9 fl (81-99); Mean Platelet Volume 7.7 fl (7.4-10.4); Monocytes # 0.6 K/mm3 (0.1-1.0); Monocytes % 3.6 % (1.7-9.3); Neutrophils # 10.1 K/mm3 (1.8-7.8); Neutrophils % 63.2 % (37.0-80.0); Platelet Count 388 K/mm3 (142-424); Red Blood Count 4.75 M/mm3 (4.20-5.40); Red Cell Distribution Width 13.9 % (11.5-17.5)
[2023-12-03 14:14] LABS: MANUAL DIFFERENTIAL MANUAL DIFFERENTIAL (MANUAL DIFF)
[2023-12-03 14:44] LABS: Eosinophils % 4 % (0-3); Lymphocytes % 25 % (10-50); Monocytes % 6 % (2-9); Neutrophils % 65 % (42-76); Platelet Estimate Normal; RBC Morphology Normal; Total Cells Counted 100
== END 2023-12-03 23:59 | disposition home or self-care (01) ==
LOC: LAB 13:48
PROVIDERS: PCP Nurse Practitioner Family; Visit Provider Physician Assistant
DX: D72.829 Elevated white blood cell count, unspecified (principal); M25.552 Pain in left hip; M53.3 Sacrococcygeal disorders, not elsewhere classified
CPT/HCPCS: 36415; 72202; 73502; 85007; 85025; 85027

== ENCOUNTER 2024-11-03 08:28 | Outpatient (CLI) | payer MEDICAID, SELFPAY ==
--- OUTSIDE RECORDS SUMMARY | 2024-08-29 17:30 | XMS_ITS ---
Author Organization [facility] Address [address] [facility] [address] [place] [address] Care Team Providers Care Estimating Manager Name Role Phone Jairo Ralph Primary Care Provider JAIRO Ralph APRN Unavailable Unavailable Migration, Provider Unavailable Unavailable [facility] Conversion Encounter Medications Medication SIG (Take, Route, Frequency, Duration) Notes Start Date End Date Status Norethindrone 0.35 MG 1 tab(s) orally on ce a day Active Omeprazole Magnesium 20 MG 1 tab(s) oral ly once a day Active Synthroid 112 MCG 1 tab(s) orally once a day for 30 days 08/17/2024 Active Lexapro 20 MG 1 tab(s) orally once a day for 30 days Active Encounters Encounter Location Date Provider Diagnosis [facility] [address] [facility] [address] [place] [address] 08/29/2024 Provider Migration Plan Of Treatment Medication Medication Name Sig Start Date Stop Date Notes Synthroid 112 MCG 1 tab(s) orally once a day for 30 days 0 08/17/2024 Lexapro 20 MG 1 tab(s) orally once a day for 30 days Next Appt Details Provider Name:Jairo Joaquin, 01/14/2025 03:30:00 PM, [address] [place] [address] [facility], [address], [place], [address], Progress Notes * Romel HARDYOB:1995 (29 yo F)Acc No.[id number]:08/29/2024 Patient: Ania LINARES Provider: Tonya Orantes :1995 A ge:29 Y S ex:Female Date:08/29/2024 Address:[place], [id number] Pcp:Jairo Ralph Subjective: * Chief Complaints: * 1 . [facility] * Medical History: * Medications: T aking Omeprazole Magnesium 20 MG Tablet Delayed Release 1 tab(s) orally once a day , Taking Norethindrone 0.35 MG Tablet 1 tab(s) orally once a day Objective: * Vitals: Assessment: Plan: * Treatment: * * Electronic signature of Alex ortiz Migration on 11/03/2024 at 08:41 AM EDT Sign off status: Pending * Provider: Tonya Orantes Date: 08/29/2024 Generated for Panda nayak/Jessi/Kelly on: 0 11/03/2024 08:41 AM EDT
--- OUTSIDE RECORDS SUMMARY | 2024-10-07 11:00 | XMS_ITS | Encounter Summary ---
Author Organization Healthcare Address [address] [place] [address] Care Team Providers Care Life Advisor Name Role Phone Lauren Kim APRN Primary Care Provider [phone] Reason for Referral * Consultation (Routine) - Authorized Specialty Diagnoses / Procedures Referred By Bandar betts Referred To Contact Genetics Diagnoses Family history of cancer of female genital organ Wanda Velarde APRN, CNM [address] [facility] [address] [place] [address] Phone: tel: fax: [facility] Genetic Counseling [address] [place] [address] Phone: tel: fax: Referral ID Status Reason Start Date Expiration Date Visits Requested Visits Authorized [id number] Authorized Specialty Services Required 10/07/2024 04/08/2026 1 1 Reason for Visit * Reason Comments Annual Exam Needs refill on ocp and desire genetic screening for female cancers found in family hx Encounter Details Date Type Department Care Team ([facility] Contact Info) Description 10/07/2024 11:00 AM EDT Office Visit Obstetrics & Gynecology [address] [place] [address] Wanda Velarde APRN, CNM [address] [facility] [address] [place] [address] Encounter for gynecological examination without abnormal finding (Primary Dx); Surveillance for control, oral contraceptives; Family planning; Family history of cancer of female genital organ Social History Tobacco Use Types Packs/Day Years Used Date Smoking Tobacco: Never Smokeless Tobacco: Never Alcohol Use Standard Drinks/Week Comments Not Currently 2 (1 standard drink = 0.6 oz pur e alcohol) very rarely Humiliation, Afraid, Rape, and Kick questionnair e Answer Date Recorded Within the last year, have y ou been afraid of your partner or ex-partner? No 06/11/2023 Within the last year, have y ou been humiliated or emotionally abused in other ways by your partner or ex-partner? No Within the last year, have y ou been kicked, hit, slapped, or otherwise physically hurt by your partner or ex-partner? No 06/11/2023 Within the last year, have y ou been raped or forced to have any kind of sexual activity by your partner or ex-partner? No 06/11/2023 PHQ-2 Answer Date Recorded Patient Health Questionnaire-2 Score 0 10/07/2024 Hunger Vital Sign Answer Date Recorded Within the past 12 months, y ou worried that your food would run out before you got the money to buy more. Never true 06/11/19 24 Within the past 12 months, t he food you bought just didn't last and you didn't have money to get more. Never true 06/11/2023 PRAPARE - Transportation Answer Date Re corded In the past 12 months, has l ack of transportation kept you from medical appointments or from getting medications? No 05/27 In the past 12 months, has l ack of transportation kept you from meetings, work, or from getting things needed for daily living? No 06/11/2023 Housing Stability Vital Sign Answer Dave e Recorded In the last 12 months, was t here a time when you were not able to pay the mortgage or rent on time? No 06/11/2023 In the last 12 months, how many places have you lived? 1 06/11/2023 In the last 12 months, was t here a time when you did not have a steady place to sleep or slept in a long-term (including now)? No 06/11/2023 [place] Depression Scale Answer Date Recorded [place] Depression Scale Total 0 04/10/2023 The thought of harming myself has occurred to me . Never 04/10/2023 Utilities Answer Date Recorded In the past 12 months has th e electric, gas, oil, or water company threatened to shut off services in your home? No 06/11/2023 PHQ-2A Answer Date Recorded Patient Health Questionnaire-2 Score 0 04/10/2023 Education Answer Date Recorded What is the highest level of school you have completed or the highest degree you have received? Associate degree: academic program 11/07/2020 Comments No Sex and Gender Information Value Date Recorded Sex Assigned at Not on file Legal Sex Female 7:59 PM EDT Gender Identity Not on file Sexual Orientation Not on file documented as of this encounter Last Filed Vital Signs Vital Sign Reading Time Taken Comments Blood Pressure 122/82 10/07/2024 11:09 AM EDT Pulse 87 10/07/2024 11:09 AM EDT Temperature - - Respiratory Rate - - Oxygen Saturation 99% 10/07/2024 11:09 AM EDT Inhaled Oxygen Concentration - - Weight 96.9 kg (213 lb 10 oz) 10/07/2024 11:09 A M EDT Height - - Body Mass Index 30.65 08/06/2023 4:34 PM EDT documented in this encounter Functional Status * Over the past 2 weeks, how often have you been bothered by any of the following problems? Question Answer Date of Assessment Author Little interest or pleasure in doing things Not at all 10/07/2024 11:10 AM EDT Aye Babcock RN Feeling down, depressed, or hopeless Not at all 10/07/2024 11:10 AM EDT Aye Babcock RN Patient Health Questionnaire -2 Score 0 10/07/2024 11:10 AM EDT Aye Babcock RN * If you checked off any problems on this questionnaire so far, Question Answer Date of Assessment Author How difficult have these problems made it for you to do your work, take care of things at home, or get along with other people? Not difficult at all 10/07/2024 11:10 AM EDT Babcock, Aye C , RN documented as of this encounter Miscellaneous Notes * Progress Notes - Elizabethkaris Wanda B, CHILD PSYCHIATRIST, CNM - 10/07/2024 11:00 AM EDT Gynecology Health Maintenance Note Subjective Ania Hardy is a 29 y.o. (C/S x2) here for a routine gynecology health maintenance visit.She had weight loss surgery and has LOST 55 LBS!! Here today for annual exam. Denies history of abnormal pap smear screenings in the past. Denies breast concerns. Denies bowel/bladder issues. Denies vaginal concerns including itch/odor/burn/discharge. Denies STD history or need for screening today. Denies immediate family history of breast, ovarian, or uterine cancers but significant more distanthistory Recently found out about significant family history of female cancers. More distant relatives. She is interested in Genetic counseling and testing: - Maternal great great GM cervical/uterine cancer - Maternal great anita GM ovarian cancer in 40s - Maternal Great Great Aunt ovarian/uterine cancer 40s - x2 Maternal Great Great Aunt ovarian cancer 40s - Great Great Aunt Breast cancer 40s - Great GM Breast cancer 80s - Great Aunt Ovarian Cancer 40s - MGM precancerous pap with hysterectomy - Mother precancerous pap with hysterectomy - 2nd cousin ovarian cancer 42 - 2nd cousin ovarian cancer 32 No further questions or concerns today. LMP: 10/06/24 Cycles: light, monthly, 4 days Contraception: OCP Pap: 04/2023 - normal Family hx: significant fam history, see above HPV vaccine: UTD The following chart sections have been reviewed and updated: Allergies Meds OB Status Review of Systems Constitutional: Negative. HENT: Negative. Eyes: Negative. Respiratory: Negative. Cardiovascular: Negative. Gastrointestinal: Negative. Endocrine: Negative. Genitourinary: Positive for vaginal bleeding (on menses). Musculoskeletal: Negative. Skin: Negative. Allergic/Immunologic: Negative. Neurological: Negative. Hematological: Negative. Psychiatric/Behavioral: Negative. Objective Visit Vitals BP 122/82 Pulse 87 Body mass index is 30.65 kg/m??. Physical Exam Constitutional: Appearance: Normal appearance. Genitourinary: Genitourinary Comments: Offered breast/pelvic exam and she declines HENT: Head: Normocephalic. Right Ear: External ear normal. Left Ear: External ear normal. Cardiovascular: Rate and Rhythm: Normal rate. Pulmonary: Effort: Pulmonary effort is normal. Musculoskeletal: General: Normal range of motion. Neurological: General: No focal deficit present. Mental Status: She is alert and oriented to person, place, and time. Skin: General: Skin is warm and dry. Psychiatric: Mood and Affect: Mood normal. Behavior: Behavior normal. Thought Content: Thought content normal. Judgment: Judgment normal. Vitals and nursing note reviewed. Assessment Assessment & Plan Encounter for gynecological examination without abnormal finding Surveillance for control, oral contraceptives Orders: norethindrone-ethinyl estradiol (Quang 1/20) 1-20 MG-MCG tablet; Take 1 tablet by mouth daily. Family planning Orders: norethindrone-ethinyl estradiol (Quang 1/20) 1-20 MG-MCG tablet; Take 1 tablet by mouth daily. Family history of cancer of female genital organ Orders: Ambulatory Referral to Oncology Genetics; Future - Next pap due 2025 - OCP - Referred to genetics for further discussion on family history. - Reviewed health maintenance including diet, regular exercise, dietary supplementation and periodic exams. - Answered all patient questions. Agreeable to plan of care - RTC prn or annually. documented in this encounter Plan of Treatment Upcoming Encounters Date Type Department Care Team (Late st Contact Info) Description 12/11/2024 1:15 PM EDT Clinical Support Pav [facility] Head[facility] Neck [facility] Respiratory [address] [facility] [place] [address] Agata Thapa, [address] [facility] [address] [facility] [address] [place] [address] 10/14/2025 11:00 AM EDT Office Visit Obstetrics & Gynecology [address] [place] [address] Wanda Velarde APRN, CNM [address] [facility] [address] [place] [address] Scheduled Referrals Name Type Priority Associated Diagnoses Order Schedule Ambulatory Referral to Oncology Genetics Outpatient Referral Routine Family history of cancer of female genital organ 1 Occurrences starting 10/07/2024 until 04/09/2026 documented as of this encounter Goals Goal Patient Goal Type Associated Problems Recent Progress Patient-Stated? Author Delayed Delivery Care Plan CPM S22 PP LABOR (OBSTETRICS) No Open Scheduling, Background documented as of this encounter Visit Diagnoses Diagnosis Encounter for gynecological examination without abnormal finding- Primary Surveillance for control, oral contraceptives Surveillance of previously prescribed contraceptive pill Family planning Other general counseling and advice for contraceptive management Family history of cancer of female genital organ documented in this encounter Additional Health Concerns Active Problems Noted Date Diagnosed Date CPM S22 PP LABOR (OBSTETRICS) 08/29/2022 Assessment Noted Time A fall risk assessment has been complete d for the patient 10/07/2024 11:10 AM EDT A Body Mass Index follow-up plan has been documented for the patient 10/07/2024 11:31 AM EDT documented as of this encounter Care Teams Life Advisor Relationship Specialty Start Date End Date Lauren Kim, CHILD PSYCHIATRIST [address] [place] [phone] PCP - General Family Medicine 09/05/23 documented as of this encounter
--- OUTSIDE RECORDS SUMMARY | 2024-10-29 05:30 | XMS_ITS ---
Author Organization [facility] Address [address] [facility] [address] [facility] [address] [place] [address] Care Team Providers Care Refuse Collector Name Role Phone Eboni Ralph Primary Care Provider [phone] EBONI Ralph APRN Unavailable Unavailable Maria Eugenia Pinedo Unavailable [phone] Allergies No Known Allergies Reason For Referral Reason Please arrange thyro id US at [facility] for enlarged thyroid on exam. Diagnosis 1 Enlarged thyroid (E0 4.9) Referral Organization [facility] Referring Provider First Name Maria Eugenia Referring Provider Last Name Shahida Referring Provider Speciality Family Pra ctice Referred Organization [facility] Referred Address [address] [place] [address], [place] Referred Provider Specialty Diagnostic R adiology General Notes Zehra Case 2024 03:49:21 PM >sent to [facility] to schedule Referral Priority Routine REASON FOR VISIT Belly Button Infected Medications Medication SIG (Take, Route, Frequency, Duration) Notes Start Date End Date Status Synthroid 112 MCG 1 tab(s) orally once a day for 30 days 08/17/2024 Active Lexapro 20 MG 1 tab(s) orally once a day for 30 days Active Clotrimazole Anti-Fungal 1 % 1 application Externally Twice a day for 14 days to abdomen. 10/29/2024 Active Norethindrone 0.35 MG 1 tab(s) orally on ce a day Active Problems Problem Type SNOMED Code ICD Code Onset Dates Problem Status W/U Status Risk Notes Problem 4108363 Enlarged thyroid (E04.9) Active confirmed Vital Signs Temperature 97.5 degrees Fahrenheit 10/30/19 25 Blood pressure systolic 112 mm Hg 10/30/19 25 Blood pressure diastolic 78 mm Hg 025 Heart Rate 76 /min 10/29/2024 Height 5ft8in in 10/29/2024 Weight 210.6 lbs 10/29/2024 BMI 32.02 kg/m2 10/29/2024 Encounters Encounter Location Date Provider Diagnosis [facility] [address] [place] [address] 10/29/2024 Maria Eugenia Pinedo Fungal skin infection B36.9 and Enlarged thyroid E04.9 Assessments Encounter Date Diagnosis (ICD Code) Assessment Notes Treatment Notes Treatment Clinical Notes Section Notes 10/29/2024 Fungal skin infection (ICD-10 - B36.9) Start topical treatment above. Discussed to change underwear frequently, keep area dry and clean. Return to clinic if worsens or no improvement in a week. 10/29/2024 Enlarged thyroid (ICD-10 - E04.9) Enlarged thyroid vs extra skin tissue with her weight loss. Case discussed with patient and will proceed with thyroid US as a precaution. Continue her thyroid replacement. Keep follow-up in December. Plan Of Treatment Medication Medication Name Sig Start Date Stop Date Notes Clotrimazole Anti-Fungal 1 % 1 applicati on Externally Twice a day for 14 days 10/29/2024 Treatment Notes Assessment Notes Fungal skin infection Start topical jey tment above. Discussed to change underwear frequently, keep area dry and clean. Return to clinic if worsens or no improvement in a week. Enlarged thyroid Enlarged thyroid vs extra skin tissue with her weight loss. Case discussed with patient and will proceed with thyroid US as a precaution. Continue her thyroid replacement. Keep follow-up in December. Referrals Referral Date Details 10/29/2024 10/29/2024, Please a rrange thyroid US at [facility] for enlarged thyroid on exam., [address], [place], [address], Next Appt Details Follow Up: December or sooner if needed., Reason: Provider Name:Eboni Joaquin, 01/14/2025 03:30:00 PM, [address], [address], [place], [address], Progress Notes * Hailey HARDYhDOB:1995 (29 yo F)Acc No.[id number]:10/29/2024 Progress Notes Patient: Ania LINARES Provider: SHARMILA Mcfarland :1995 A ge:29 Y S ex:Female Date:10/29/2024 Address:[place], [id number] Pcp:Eboni Ralph Subjective: * Chief Complaints: * 1 . Belly Button Infected. * HPI: g en: Patient presents with belly botton concern. She reports having weight loss surgery in May and losing 70 lbs since then. She noticed last night her cantu button was slight erythematous and pruritic without discharge or open lesions so she presents today for furhter evaluation. She denies fevers. No recent yeast infections. She reports having a dry coguh x 3 days and wants her lungs to be listened to. Use her albuterol once 2 days ago, none since. * ROS: A LLERGY: no R unny nose. R ESPIRATORY: no S hortness of breath. C ough y es. ? C ONSTITUTIONAL: no L oss of appetite. n o F ever. D ERMATOLOGY: no R laina. E NT: Cough y es. n o S ore throat. * Medical History: H ypothyroidism, Depression, Asthma, Right SI Joint Dysfunction.. * Medications: T aking Norethindrone 0.35 MG Tablet 1 tab(s) orally once a day , Taking Synthroid 112 MCG Tablet 1 tab(s) orally once a day , Taking Lexapro 20 MG Tablet 1 tab(s) orally once a day , Discontinued Omeprazole Magnesium 20 MG Tablet Delayed Release 1 tab(s) orally once a day , Medication List reviewed and reconciled with the patient * Allergies: N .K.D.A. Objective: * Vitals: N urse: KJ, Pain: 0, Temp: 97.5, RR: 18, HR: 76, BP: 112/78, Ht: 5ft8in, Wt: 210.6, BMI:32.02. * Examination: G eneral Examination: General P leasant and Cooperative, NAD on RA,. Oral cavity: M oist membranes. Chest: n ormal shape and expansion. Heart: R RR, No m/r/g, No edema,. HEENT: n ormal oropharynx, TM's normal. Lungs: L ungs clear, No wheezes, crackles or rhonchi, Good air movement,. Abdomen: u mbilicus erythematous with dry skin, no open lesions or discharge or loculation, Soft, non-tender, No organomegaly or peritoneal signs.. Neurologic Exam: n o focal signs neurological deficits.? Skin: w ithout acute rashes. Back: n ormal,. neck s upple, n o lymphadenopathy, + possible thyromegaly vs extra skin from weight loss. Psych N ormal Mood/Affect. Assessment: * Assessment: 1. F ungal skin infection - B36.9 (Primary) 2 . E nlarged thyroid - E04.9? Plan: * Treatment: 2. E nlarged thyroid Notes: Enlarged thyroid vs extra skin tissue with her weight loss. Case discussed with patient and will proceed with thyroid US as a precaution. Continue her thyroid replacement. Keep follow-up in December. Referral To: Reason:Please arrange thyroid US at [facility] for enlarged thyroid on exam. * Follow Up: A ugust or sooner if needed. * * Sign off status: Completed true * Provider: SHARMILA Mcfarland Date: 0 10/29/2024 Generated for Panda nayak/Jessi/Jenniferitting on: 11/03/2024 08:41 AM EDT History and Physical Notes * HPI (History of Present Illness) Category Sub-Category Detail Notes Category Not es gen Patient presents with belly botton concern. She reports having weight loss surgery in May and losing 70 lbs since then. She noticed last night her cantu button was slight erythematous and pruritic without discharge or open lesions so she presents today for furhter evaluation. She denies fevers. No recent yeast infections. She reports having a dry coguh x 3 days and wants her lungs to be listened to. Use her albuterol once 2 days ago, none since. Examination Category Sub-Category Detail Notes Category Not es General Examination HEENT: normal oropharynx, TM 's normal Heart: RRR, No m/r/g, No ed chantell, Lungs: Lungs clear, No whee zes, crackles or rhonchi, Good air movement, Abdomen: umbilicus erythemato us with dry skin, no open lesions or discharge or loculation, Soft, non-tender, No organomegaly or peritoneal signs. Skin: without acute rashes Neurologic Exam: no focal signs neuro logical deficits Oral cavity: Moist membranes Back: normal, Chest: normal shape and exp ansion neck supple, no lymphaden opathy, + possible thyromegaly vs extra skin from weight loss General Pleasant and Coopera tive, NAD on RA, Psych Normal Mood/Affect Consultation Request Notes Referral Date Referring Provider Referred Provider Not es 10/29/2024 Maria Eugenia Pinedo , Please arran ge thyroid US at [facility] for enlarged thyroid on exam.
--- OUTSIDE RECORDS SUMMARY | 2024-10-30 07:04 | XMS_ITS ---
Author Organization [facility] Address [address] [facility] [address] [facility] [address] [place] [address] Care Team Providers Care Software Engineer Sales Name Role Phone Jairo Ralph Primary Care Provider JAIRO Ralph APRN Unavailable Unavailable Maria Eugenia Pinedo Unavailable [phone] REASON FOR VISIT us order Encounters Encounter Location Date Provider Diagnosis [facility] [address] [facility] [address] [place] [address] 10/30/2024 Maria Eugenia Pinedo Enlarged thyroid E04.9 Assessments Encounter Date Diagnosis (ICD Code) Assessment Notes Treatment Notes Treatment Clinical Notes Section Notes 10/30/2024 Enlarged thyroid (ICD-10 - E04.9) Plan Of Treatment Pending Test Test Name Order Date US THYROID 10/30/2024 Next Appt Details Provider Name:Jairo Joaquin, 01/14/2025 03:30:00 PM, [address] [facility], [address], [place], [place], [address], Progress Notes * DIANEHailey CranehDOB:1995 (29 yo F)Acc No.[id number]:10/30/2024 Patient: Ania LINARES :1995 A ge:29 Y S ex:Female Address:[facility] [place] [address] Subjective: * Chief Complaints: * U s order * Medical History: * Surgical History: * Hospitalization/Major Diagno stic Procedure: * Medications: Objective: * Vitals: * Physical Examination: Assessment: * Assessment: 1. E nlarged thyroid - E04.9 Plan: * Treatment: * * Procedure Codes: * true * Date: Generated for Panda nayak/Jessi/Kelly on: 0 11/03/2024 08:42 AM EDT
--- NOTE | 2024-11-03 08:30 | US_ITS ---
FINAL REPORT TECHNIQUE: Sonographic images of the thyroid gland were obtained in the longitudinal and transverse planes. CLINICAL HISTORY: ENLARGED THYROID COMPARISON: None FINDINGS: The right lobe measures 5.2 x 1.3 x 1.3 cm. The right lobe is somewhat inhomogeneous. There is a 1.3 cm nodule that appears to be separate and just posterior to the thyroid gland, that likely represents a parathyroid gland. The left lobe measures 4.9 x 1.3 x 1.6 cm. The left lobe is somewhat inhomogeneous. There is a 1.9 cm nodule that appears to be separate and just posterior to the thyroid gland, that likely represents a parathyroid gland. The isthmus measures 4 mm. This is normal. IMPRESSION: The thyroid gland appears somewhat inhomogeneous bilaterally, however no definite focal parenchymal nodules are identified. There are small nodular foci that appear to be separate from the thyroid gland but posterior to the lobes of both the left and the right thyroid gland, that likely represent parathyroid glands. Reviewed, Interpreted and Dictated by David Colon MD Transcribed by Nelia Aranda Authenticated and [facility]
--- OUTSIDE RECORDS SUMMARY | 2024-11-03 08:42 | XMS_ITS | Encounter Summary ---
Author Organization [employer] Address [address] [place] [address] Care Team Providers Care Video Game Creator Name Role Phone Eboni Ralph PATTERNMAKER APPRENTICE WOOD Primary Care Provider Encounter Details Date Type Department Care Team (Late st Contact Info) Description 11/24/2019 Transcribed Document [facility] Family Medicine Counts include [address] beds at the [facility] [place] [address] ProviderMichela MD [address] [place] [address] Social History Tobacco Use Types Packs/Day Years Used Date Smoking Tobacco: Never Assessed Comments Unknown Sex and Gender Information Value Date Recorded Sex Assigned at Not on file Legal Sex Female 7:00 PM CDT Gender Identity Not on file Sexual Orientation Not on file documented as of this encounter Miscellaneous Notes * Cerner Conversion Note - Michela ProviderMD - 11/24/2019 2:14 PM CDT Electronically signed by [facility] Conversion Client Associate Cerner at 09/13/2022 1:53 PM CDT documented in this encounter Plan of Treatment Upcoming Encounters Date Type Department Care Team (Late st Contact Info) Description 11/09/2024 1:30 PM EDT Audio - Telemedicine [facility] [address] [facility] [address] [place] [address] documented as of this encounter Visit Diagnoses Not on filedocumented in this encounter Care Teams Video Game Creator Relationship Specialty Start Date End Date Eboni Ralph APRN [address], [place] [address], [place] [address] PCP - General Nurse Practitioner 02/17/24 documented as of this encounter
--- OUTSIDE RECORDS SUMMARY | 2024-11-03 08:42 | XMS_ITS | Encounter Summary ---
Author Organization Healthcare Address [address] [place] [id number] Care Team Providers Care Merchandising Execution Associate Name Role Phone Lauren Kim APRN Primary Care Provider [phone] Encounter Details Date Type Department Care Team (Late st Contact Info) Description 10/12/2024 Telephone [facility] [address] [place] [address] Agata Thapa, [address] [facility] [address] [place] [id number] Social History Tobacco Use Types Packs/Day Years [...] No 06/11/2023 Housing Stability Vital Sign Answer Daev e Recorded In the last 12 months, [...] place to sleep or slept in a longterm (including now)? No 06/11/2023 Minter Depression Scale Answer Date Recorded Minter Depression Scale Total 0 04/10/2023 The thought [...] as of this encounter Miscellaneous Notes * Telephone Encounter - Soni Cintron - 10/12/2024 11:52 AM EDT [facility] spoke with pt to miko referral to oncology genetics. Pt stated she was not aware of any personal/family genetic testing. CGC sent via [employer], per patient preference. documented in this encounter Plan of Treatment Upcoming Encounters Date Type Department Care Team (Late st Contact Info) Description 12/11/2024 1:15 PM EDT Clinical Support [facility] [address] [place] [address] Agata Thapa, GC [address] [place] [address] 10/14/2025 11:00 AM EDT Office Visit [facility] [address] [place] [address] Wanda Velarde, CUSTOMER QUALITY ENGINEER, CNM [address] [place] [address] documented as of this encounter Goals Goal Patient Goal Type Associated Problems Recent Progress Patient-Stated? Author Delayed Delivery Care Plan CPM S22 PP LABOR (OBSTETRICS) No Open Scheduling, Background documented as of this encounter Visit Diagnoses Not on filedocumented in this encounter Additional Health Concerns Active Problems Noted Date Diagnosed Date CPM S22 PP LABOR (OBSTETRICS) 08/29/2022 Assessment Noted Time A fall risk assessment has been complete d for the patient 10/07/2024 11:10 AM EDT A Body Mass Index follow-up plan has been documented for the patient 10/07/2024 11:31 AM EDT documented as of this encounter Care Teams Merchandising Execution Associate Relationship Specialty Start Date End Date Lauren Kim, CUSTOMER QUALITY ENGINEER [address] [place] [address] PCP - General Family Medicine 09/05/23 documented as of this encounter
--- OUTSIDE RECORDS SUMMARY | 2024-11-03 08:42 | XMS_ITS | Encounter Summary ---
Author Organization Healthcare [place] [address] Care Team Providers Care Manager Generation Name Role Phone Julio Laurenevangelista Mark APRN Primary Care Provider [phone] Encounter Details Date Type Department Care Team (Latest Contact Info) Description 10/06/2024 Travel Social History Tobacco Use Types Packs/Day Years [...] in a longterm (including now)? No 06/11/2023 Bardwell Depression Scale Answer Date Recorded Bardwell Depression Scale Total 0 04/10/2023 The thought [...] on file documented as of this encounter Plan of Treatment Upcoming Encounters Date Type Department Care Team (Late st Contact Info) Description 12/11/2024 1:15 PM EDT Clinical Support [facility] [address] [place] [address] Agata Thapa, GC [address] [facility] [address] [place] [address] 10/14/2025 11:00 AM EDT Office Visit Ob[facility] Gynecology [address] [place] [address] Wanda Velarde, WEIGHT COUNT OPERATOR, CNM [address] [facility] [address] [place] [address] documented as of this encounter [...] has been complete d for the patient 09/04/2023 2:04 PM EDT A Body Mass Index follow-up plan has been documented for the patient 09/04/2023 3:35 PM EDT documented as of this encounter Care Teams Manager Generation Relationship Specialty Start Date End Date Lauren Kim, WEIGHT COUNT OPERATOR [address] [place] [address] PCP - General Family Medicine 09/05/23 documented as of this encounter
--- OUTSIDE RECORDS SUMMARY | 2024-11-03 08:42 | XMS_ITS | Referral Summary ---
Author Organization [employer] Address [address] [place] [address] Care Team Providers Care Vat Cleaner Name Role Phone ChristineEboni huitron Kaylyn Smithon LIBBY Primary Care Provider Encounters Date Type Department Care Team Description 08/28/2024 Orders Only [facility] [address] [facility] [address] [place] [address] Miranda Cabello RN 08/26/2024 12:30 PM EDT Lab Patient Walk-In [facility] [address] [place] [address] Gastric bypass status for obesity; Disorder of iron metabolism; Vitamin B deficiency 08/26/2024 Travel 08/26/2024 10:30 AM EDT Office Visit [facility] [address] [facility] [address] [place] [address] Caitie Velarde MD Gastric bypass status for obesity (Primary Dx); Disorder of iron metabolism; Vitamin D deficiency; Vitamin B deficiency from Last 3 Months Allergies No known active allergies Medications escitalopram oxalate (LEXAPRO) 20 MG tablet Take 1 tablet (20 mg total) by mouth daily. 06/11/2023 Active omeprazole (PriLOSEC) 20 MG capsule Take 1 capsule (20 mg total) by mouth daily. 30 capsule 2 06/17/2024 Active levothyroxine (SYNTHROID) 112 MCG tablet Take 1 tablet (112 mcg total) by mouth daily. 08/17/2024 Active norethindrone-e thinyl estradiol (MICROGESTIN 06/15) 1-20 mg-mcg per tablet Take 1 tablet by mouth daily. 08/25/2024 Active ergocalciferol (Vitamin D2) 1,250 mcg (50,000 unit) capsule Take 1 capsule (50,000 Units total) by mouth every 7 days for 12 doses. 4 capsule 2 08/28/2024 Active Active Problems Problem Noted Date Diagnosed Date Hypothyroid 06/08/2024 Mild intermittent asthma without complication SI (sacroiliac) joint dysfunction 06/08/2024 Gastroesophageal reflux dise ase, unspecified whether esophagitis present 06/08/2024 Esophageal dysmotility 06/08/2024 Morbid obesity due to excess calories 03/23/2024 Social History Tobacco Use Types Packs/Day Years Used Date Smoking Tobacco: Never Smokeless Tobacco: Never Tobacco Cessation:Counseling Given: Not Answered Alcohol Use Standard Drinks/Week Comments Never 0 (1 standard drink = 0.6 oz pur e alcohol) Utilities Answer Date Recorded In the past 12 months, has t he electric, gas, oil, or water company threatened to shut off services in your home? No 06/16/2024 Interpersonal Safety Answer Date Record ed How often does anyone, dory de leon family and friends, physically hurt you? Never 06/16/2024 How often does anyone, danadeclan moises family and friends, insult or talk down to you? Never 06/16/2024 How often does anyone, danadeclan moises family and friends, threaten you with harm? Never 06/16/2024 How often does anyone, dory moises family and friends, scream or curse at you? Never 06/16/2024 Housing Stability Answer Date Recorded What is your living situation today? I have a [facility] place to live 06/16/[address] you li ve. Do you have problems with any of the following? None of the above 06/16/2024 Food Insecurity Answer Date Recorded Within the past 12 months, y ou worried that your food would run out before you got money to buy more. Never true 06/16/2024 Within the past 12 months, t he food you bought just didn't last and you didn't have money to get more. Never true 06/16/2024 Transportation Needs Answer Date Record ed In the past 12 months, has l ack of reliable transportation kept you from medical appointments, meetings, work or from getting things needed for daily living? No 06/16/2024 Financial Resource Strain Answer Date R ecorded How hard is it for you to pa y for the very basics like food, housing, medical care, and heating? Would you say it is: Not hard at all 06/16/2024 Employment Answer Date Recorded Do you want help finding or keeping work or a job? I do not need or want help 06/16/2024 Family and Community Support Answer Dave e Recorded If for any reason you need h elp with day-to-day activities such as bathing, preparing meals, shopping, managing finances, etc., do you get the help you need? I get all the help I need 06/16/2024 Feeling Lonely or Isolated 0 06/16 Educational Attainment Answer Date Orlando rded Do you speak a language other than Spanish at [facility]? No 06/16/2024 Do you want help with school or training? For example, starting or completing job training or getting a high school diploma, GED or equivalent. No 06/16/2024 Physical Activity Answer Date Recorded Number of minutes of exercise per week 60 06/16/2024 Alcohol Use Answer Date Recorded 5 or More Drinks Per Day Past 12 Months 0 06/16/2024 Depression Answer Date Recorded Calculation of above two rows 0 Stress Answer Date Recorded Stress means a situation in which a person feels tense, restless, nervous, or anxious, or is unable to sleep at night because his or her mind is troubled all the time. Do you feel this kind of stress these days? A little bit 06/16/2024 Disabilities Answer Date Recorded Because of a physical, menta l, or emotional condition, do you have serious difficulty concentrating, remembering, or making decisions? (5 years or older) No 06/16/2024 Because of a physical, menta l, or emotional condition, do you have difficulty doing errands alone such as visiting a doctor's office or shopping? (15 years or older) No 06/16/2024 Substance Use Answer Date Recorded How many times in the past y ear have you used prescription drugs for non-medical reasons? Never 06/16/2024 How many times in the past year have you used [place] legal drugs? Never 06/16/2024 Comments Unknown Sex and Gender Information Value Date Recorded Sex Assigned at Not on file Legal Sex Female 7:00 PM CDT Gender Identity Not on file Sexual Orientation Not on file Last Filed Vital Signs Vital Sign Reading Time Taken Comments Blood Pressure 100/50 08/26/2024 10:52 AM EDT Pulse 80 08/26/2024 10:52 AM EDT Temperature 36.8 C (98.3 F) 06/23/2024 8:57 AM EST Respiratory Rate 18 06/17/2024 8:45 AM EST Oxygen Saturation 94% 06/17/2024 8:45 AM EST Inhaled Oxygen Concentration - - Weight 101.9 kg (224 lb 9.6 oz) 025 10:52 AM EDT Height 170.2 cm (5' 7.01 ) 06/16/2024 8:21 AM ES T Body Mass Index 35.17 06/16/2024 8:21 AM EST Plan of Treatment Upcoming Encounters Date Type Department Care Team (Late st Contact Info) Description 11/09/2024 1:30 PM EDT Audio - Telemedicine [facility] [address] [place] [phone] Procedures Procedure Name Priority Date/Time Associated Diagnosis Comments MMA SERUM/PLASMA, VITAMIN B12 STATUS(SENDOUT) Routine 08/26/2024 4:01 PM EDT Gastric bypass status for obesity Vitamin B deficiency CBC W/ AUTO DIFF Routine 08/26/2024 4:01 PM EDT 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 Vitamin B deficiency PTH, INTACT Routine 08/26/2024 4:01 PM EDT Gastric bypass status for obesity Vitamin D deficiency VITAMIN D, 25-HYDROXY Routine 08/26/2024 4:01 PM EDT Gastric bypass status for obesity Vitamin D deficiency IRON, SERUM Routine 08/26/2024 4:01 PM EDT 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 FERRITIN Routine 08/26/2024 4:01 PM EDT 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 COMPREHENSIVE METABOLIC PANEL Routine 08/26/2024 4:01 PM EDT Gastric bypass status for obesity Vitamin D deficiency LIPID PANEL Routine 03/20/2024 10:04 AM EDT Disorder of iron metabolism from Last 3 Months or Most Recently Relevant to Health Maintenance Results * CBC with automated diff (08/26/2024 4:01 PM EDT) WBC 9.8 3.9 - 10.0 K/ L 08/26/2024 4:06 PM EDT [facility] RBC 4.67 3.93 - 6.08 M/ L 08/26/2024 4:06 PM EDT [facility] Hemoglobin 13.5 11.2 - 15.7 GM/DL 08/26/2024 4:06 PM EDT [facility] Hematocrit 40.8 34.1 - 44.9 % 08/26/2024 4:06 PM EDT [facility] MCV 87 79 - 95 fL 08/26/2024 4:06 PM EDT [facility] MCH 28.9 25.6 - 32.2 pg 08/26/2024 4:06 PM EDT [facility] MCHC 33.1 32.2 - 36.5 GM/DL 08/26/2024 4:06 PM EDT [facility] RDW 13.8 11.6 - 14.4 % 08/26/2024 4:06 PM EDT [facility] Platelets 307 163 - 369 K/CU MM 08/26/2024 4:06 PM EDT [facility] MPV 11.3 9.4 - 12.4 fL 08/26/2024 4:06 PM EDT [facility] % Neutros 56 34 - 71 % 08/26/2024 4:06 PM EDT [facility] % Lymphs 34 19 - 53 % 08/26/2024 4:06 PM EDT [facility] % Monos 7 4 - 13 % 08/26/2024 4:06 PM EDT [facility] % Eos 3 1 - 7 % 08/26/2024 4:06 PM EDT [facility] % Baso 1 0 - 1 % 08/26/2024 4:06 PM EDT [facility] # Neutros 5.47 1.56 - 6.13 K/ L 08/26/2024 4:06 PM EDT [facility] # Lymphs 3.29 1.18 - 3.74 K/ L 08/26/2024 4:06 PM EDT [facility] # Monos 0.65 0.24 - 0.82 K/ L 08/26/2024 4:06 PM EDT [facility] # Eos 0.26 0.04 - 0.54 K/ L 08/26/2024 4:06 PM EDT [facility] # Baso 0.07 0.01 - 0.08 K/ L 08/26/2024 4:06 PM EDT [facility] Immature Granulocytes-Re lative 0.10 0.00 - 0.60 % 08/26/2024 4:06 PM EDT [facility] # IG 0.01 0.00 - 0.05 K/uL 08/26/2024 4:06 PM EDT [facility] Blood Venipuncture / Unknown 08/26/2024 4:01 PM EDT 08/26/2024 4:01 PM EDT Narrative [facility] - 08/26/2024 4:06 PM EDT When CBC w/ Auto Diff is ordered the lab will add a Manual Differential as a quality check at no additional charge if: Lymphocytes greater than seventy five percent with normal or increased WBC Monocytes greater than Fifteen percent Basophil greater than four percent Bands >10% or several immature myeloids are seen on scan Blast? Flag noted Atypical Lymph flag noted us Caitie Velarde MD LAB BLOOD ORDERABLES Final Resu lt [facility] [address] [place] [address], [facility] [phone] * MMA Serum/Plasma, Vitamin B12 Status(SENDOUT) (08/26/2024 4:01 PM EDT) MMA Serum/Plasma, Vitamin B12 Status 0.12 0.00 - 0.40 umol/L 08/31/2024 11:16 AM EDT [facility] [employer] Comment: INTERPRETIVE INFORMATION: MMA Serum/Plasma, Vitamin B12 Status This test was developed and its performance characteristics determined by [facility]. It has not been cleared or approved by the [place] Food and Drug Administration. This test was performed in a CLIA certified laboratory and is intended for clinical purposes. Performed By: [facility] [address] [place] [address] Director Of Retail Marketing: Darell Bermudez MD, PhD CLIA Number: [id number] Blood Venipuncture / Unknown 08/26/2024 4:01 PM EDT 08/26/2024 4:01 PM EDT Caitie Velarde MD LAB BLOOD ORDERABLES Final Resu lt Performing Organization Address City/[facility]/ZIP Co de Phone Number [facility] [address] [place], [place] [address] [phone] * (ABNORMAL) Vitamin D, 25-Hydroxy (08/26/2024 4:01 PM EDT) [facility] Vitamin D 25-Hydroxy 27.08(L) 30.0 - 100.0 ng/mL 08/26/2024 5:08 PM EDT [facility] Blood Venipuncture / Unknown 08/26/2024 4:01 PM EDT 08/26/2024 4:01 PM EDT Caitie Velarde MD LAB BLOOD ORDERABLES Final Resu lt [facility] [address] [place] [address], [facility] [phone] * PTH, intact (08/26/2024 4:01 PM EDT) Pathologist [facility] PTH 69.9 18.4 - 80.1 pg/mL 08/26/2024 4:36 PM EDT [facility] PTH Type (pg/mL) Non-IntraO p pg/mL 08/26/2024 4:36 PM EDT [facility] Blood Venipuncture / Unknown 08/26/2024 4:01 PM EDT 08/26/2024 4:01 PM EDT Caitie Velarde MD LAB BLOOD ORDERABLES Final Resu lt Performing Organization Address [facility]/ZIP Co de Phone Number [facility] [address] [phone] * Iron, serum (08/26/2024 4:01 PM EDT) Iron 54 50.0 - 170.0 ug/dL 08/26/2024 4:44 PM EDT [facility] Blood Venipuncture / Unknown 08/26/2024 4:01 PM EDT 08/26/2024 4:01 PM EDT us Caitie Velarde MD LAB BLOOD ORDERABLES Final Resu lt Performing Organization Address [facility]/ZIP Co de Phone Number [facility] [address] [place] [address], [facility] [phone] * Ferritin (08/26/2024 4:01 PM EDT) Ferritin 131.00 8.00 - 252.00 ng/mL 08/26/2024 4:45 PM EDT [facility] Blood Venipuncture / Unknown 08/26/2024 4:01 PM EDT 08/26/2024 4:01 PM EDT us Caitie Velarde MD LAB BLOOD ORDERABLES Final Resu lt Performing Organization Address [facility]/ZIP Co de Phone Number [facility] [address] [place] [address], [facility] [phone] * (ABNORMAL) Comprehensive metabolic panel (08/26/2024 4:01 PM EDT) Sodium 144 136 - 146 meq/L 08/26/2024 4:45 PM EDT [facility] Potassium 4.2 3.5 - 5.1 meq/L 08/26/2024 4:45 PM EDT [facility] Chloride 107 102 - 112 meq/L 08/26/2024 4:45 PM EDT [facility] CO2 28 21 - 32 meq/L 08/26/2024 4:45 PM EDT [facility] Calcium 9.3 8.5 - 10.1 mg/dL 08/26/2024 4:45 PM EDT [facility] Glucose 70(L) 74 - 106 mg/dL 08/26/2024 4:45 PM EDT [facility] BUN 9 7 - 22 mg/dL 08/26/2024 4:45 PM EDT [facility] Creatinine 0.65 0.55 - 1.02 mg/dL 08/26/2024 4:45 PM EDT [facility] BUN/Creatinine 14 8 - 20 08/26/2024 4:45 PM EDT [facility] Albumin 3.6 3.4 - 5.0 g/dL 08/26/2024 4:45 PM EDT [facility] Alkaline Phosphatase 100 27 - 136 U/L 08/26/2024 4:45 PM EDT [facility] ALT 22 12 - 78 U/L 08/26/2024 4:45 PM EDT [facility] AST 18 5 - 37 U/L 08/26/2024 4:45 PM EDT [facility] Total Bilirubin 0.3 0.2 - 1.3 mg/dL 08/26/2024 4:45 PM EDT [facility] Protein, Total 7.3 6.4 - 8.2 gm/dL 08/26/2024 4:45 PM EDT [facility] Anion Gap 13 9 - 20 08/26/2024 4:45 PM T [facility] A/G Ratio 1.0(L) 1.1 - 2.5 08/26/2024 4:45 PM EDT [facility] Globulin 3.7 1.5 - 4.5 g/dL 08/26/2024 4:45 PM EDT [facility] Osmolality Calc 283.9 mOsm/kg 4:45 PM EDT [facility] eGFR (mL/min/1.73m2) >60 >=60 mL/min/1.7 3m2 08/26/2024 4:45 PM EDT [facility] Comment:ESTIMATED GFR IS NOT ACCURATE CREATININE CLEARANCE IN PREDICTING GLOMERULAR FILTRATION RATE. ESTIMATED GFR IS NOT APPLICABLE FOR DIALYSIS PATIENTS. Blood Venipuncture / Unknown 08/26/2024 4:01 PM EDT 08/26/2024 4:01 PM EDT us Caitie Velarde MD LAB BLOOD ORDERABLES Final Resu lt [facility] [address] [place] [address], [facility] [phone] * (ABNORMAL) Lipid panel (03/20/2024 10:04 AM EDT) Triglycerides 90 0 - 249 mg/dL 03/20/2024 10:51 AM EDT [facility] Cholesterol 205(H) 0 - 199 mg/dL 03/20/2024 10:51 AM EDT [facility] Comment: 200 to 239 mg/dL = Moderate (borderline) >239 mg/dL = High HDL Cholesterol 60 >=40 mg/dL 03/20/2024 10:51 AM EDT [facility] Comment: >=60 mg/dL = Desirable <40 mg/dL = Increased Risk All other components are listed individually or are calculations VLDL Cholesterol 18 5 - 40 mg/dL 03/20/2024 10:51 AM EDT [facility] Cholesterol/HDL ratio 3.4(H) 0.0 - 3.2 03/20/2024 10:51 AM EDT [facility] LDl/HDL Ratio 2 0 - 4 03/20/2024 10:51 AM EDT [facility] RISK COMP 3 03/20/2024 10:51 AM EDT [facility] LDL Cholesterol, Calculated 127(H) 0 - 99 mg/dL 03/20/2024 10:51 AM EDT [facility] Blood Venipuncture / Unknown 03/20/2024 10:04 AM EDT 03/20/2024 10:04 AM EDT us Ariane Forte PA-C LAB BLOOD ORDERABLES Fi nal Result [facility] [address] [place] [id number] [phone] from Last 3 Months or Most Recently Relevant to Health Maintenance Insurance [facility] [place] [id number] [employer] [facility] Advance Directives For more information, please contact: [phone] * Full Code (Latest Code Status on File) Date Activated Date Inactivated Comments 06/16/2024 1:37 PM 06/17/2024 4:13 PM * Full Code Date Activated Date Inactivated Comments 06/16/2024 6:50 AM 06/16/2024 1:37 PM Care Teams Vat Cleaner Relationship Specialty Start Date End Date Eboni Ralph, DRAWER HARDWARE WORKER [address] [place] [address], [address] [address], [place] [address] PCP - General Nurse Practitioner 02/17/24
--- OUTSIDE RECORDS SUMMARY | 2024-11-03 08:42 | XMS_ITS | Patient Health Record ---
Author Organization [facility] Address [address] [place] [address] Care Team Providers Care Bessemer Bottom Maker Name Role Phone Eboni Ralph Primary Care Provider EBONI Ralph APRN Unavailable Unavailable CaritoMaria Eugenia qiu Unavailable [phone] Shahida Maria Eugenia Unavailable [phone] Migration, Provider Unavailable Unavailable Allergies No Known Allergies Results Component Value Reference Range Notes Rapid Strep Reviewed date:07/13/2024 07:47:13 PM Interpretation:Positive Performing Lab: Notes/Report: Positive M-Complete Blood Count Auto Diff Reviewed date:11/26/2023 08:07:59 AM Interpretation: Performing Lab: Notes/Report: WBC 15.1 4.8-10.8 K/mm3 RBC 4.59 4.20-5.40 M/mm3 HGB 13.5 12.2-16.2 g/dL HCT 38.8 37.0-47.0 % MCV 84.5 81-99 fl MCH 29.3 27.0-31.2 pg MCHC 34.7 31.8-35.4 g/dL RDW 13.7 11.5-17.5 % PLT 371 142-424 K/mm3 MPV 6.7 7.4-10.4 fl NE% 58.6 37.0-80.0 % LY% 33.2 10-50 % MO% 4.3 1.7-9.3 % EO% 3.4 0.1-12.0 % BA% 0.5 0.1-2.0 % NE# 8.8 1.8-7.8 K/mm3 LY# 5.0 0.7-4.5 K/mm3 MO# 0.7 0.1-1.0 K/mm3 EO# 0.5 0.0-0.4 K/mm3 BA# 0.1 0-0.2 K/mm3 M-Manual Differential Reviewed date:11/26/2023 08:07:59 AM Interpretation: Performing Lab: Notes/Report: RENY MANUAL DIFFERENTIAL MANUAL DIFF TCC 100 NEUT%M 54 42-76 % LYMPH%M 39 10-50 % MONO%M 5 2-9 % EOS%M 2 0-3 % PLTE Normal RM Normal X ray : SI Joints Reviewed date:12/06/2023 04:07:56 PM Interpretation: Performing Lab: Notes/Report: M-Complete Blood Count Auto Diff Reviewed date:12/05/2023 02:28:42 PM Interpretation: Performing Lab: Notes/Report: WBC 16.0 4.8-10.8 K/mm3 RBC 4.75 4.20-5.40 M/mm3 HGB 13.7 12.2-16.2 g/dL HCT 39.9 37.0-47.0 % MCV 83.9 81-99 fl MCH 28.9 27.0-31.2 pg MCHC 34.5 31.8-35.4 g/dL RDW 13.9 11.5-17.5 % PLT 388 142-424 K/mm3 MPV 7.7 7.4-10.4 fl NE% 63.2 37.0-80.0 % LY% 29.6 10-50 % MO% 3.6 1.7-9.3 % EO% 2.8 0.1-12.0 % BA% 0.8 0.1-2.0 % NE# 10.1 1.8-7.8 K/mm3 LY# 4.7 0.7-4.5 K/mm3 MO# 0.6 0.1-1.0 K/mm3 EO# 0.4 0.0-0.4 K/mm3 BA# 0.1 0-0.2 K/mm3 M-Manual Differential Reviewed date:12/05/2023 02:28:42 PM Interpretation: Performing Lab: Notes/Report: RENY MANUAL DIFFERENTIAL MANUAL DIFF TCC 100 NEUT%M 65 42-76 % LYMPH%M 25 10-50 % MONO%M 6 2-9 % EOS%M 4 0-3 % PLTE Normal RM Normal COMPREHENSIVE METABOLIC PANE L (73021) Reviewed date:08/21/2024 08:02:26 AM Interpretation: Performing Lab:[facility] [facility], [facility] [id number] [place] Kline Notes/Report: NON-FASTING; NON-FASTING; NON-FASTING GLUCOSE 75 65-99 mg/dL Fasting reference interval UREA NITROGEN (BUN) 8 7-25 mg/dL CREATININE 0.66 0.50-0.96 mg/dL EGFR 123 > OR = 60 mL/min/1.73m2 BUN/CREATININE RATIO SEE NOTE: 6-22 (calc) Not Reported: BUN and Creatinine are within reference range. SODIUM 139 135-146 mmol/L POTASSIUM 4.3 3.5-5.3 mmol/L CHLORIDE 107 98-110 mmol/L CARBON DIOXIDE 26 20-32 mmol/L CALCIUM 9.5 8.6-10.2 mg/dL PROTEIN, TOTAL 7.4 6.1-8.1 g/dL ALBUMIN 4.0 3.6-5.1 g/dL GLOBULIN 3.4 1.9-3.7 g/dL (calc) ALBUMIN/GLOBULIN RATIO 1.2 1.0-2.5 (calc) BILIRUBIN, TOTAL 0.4 0.2-1.2 mg/dL ALKALINE PHOSPHATASE 84 31-125 U/L AST 17 10-30 U/L ALT 14 6-29 U/L CBC (INCLUDES DIFF/PLT) (639 9) Reviewed date:08/21/2024 08:02:26 AM Interpretation: Performing Lab:[facility] [facility], [facility] [id number] [place] Kline Notes/Report: NON-FASTING; NON-FASTING; NON-FASTING WHITE BLOOD CELL COUNT 9.6 3.8-10.8 Thousand/ uL RED BLOOD CELL COUNT 4.54 3.80-5.10 Million/uL HEMOGLOBIN 13.1 11.7-15.5 g/dL HEMATOCRIT 38.7 35.0-45.0 % MCV 85.2 80.0-100.0 fL MCH 28.9 27.0-33.0 pg MCHC 33.9 32.0-36.0 g/dL For adults, a slight decrease in the calculated MCHC value (in the range of 30 to 32 g/dL) is most likely not clinically significant; however, it should be interpreted with caution in correlation with other red cell parameters and the patient's clinical condition. RDW 13.7 11.0-15.0 % PLATELET COUNT 312 140-400 Thousand/uL MPV 11.3 7.5-12.5 fL ABSOLUTE NEUTROPHILS 5645 1419-9391 cells/uL ABSOLUTE LYMPHOCYTES 2928 850-3900 cells/uL ABSOLUTE MONOCYTES 710 200-950 cells/uL ABSOLUTE EOSINOPHILS 269 15-500 cells/uL ABSOLUTE BASOPHILS 48 0-200 cells/uL NEUTROPHILS 58.8 LYMPHOCYTES 30.5 MONOCYTES 7.4 EOSINOPHILS 2.8 BASOPHILS 0.5 TSH W/REFLEX TO FT4 (83704) Reviewed date:08/21/2024 08:02:26 AM Interpretation: Performing Lab:[facility], [facility] [address], [facility] CenterQfotWA[address] [place] Kline Notes/Report: NON-FASTING; NON-FASTING; NON-FASTING NON-FASTING; NON-FASTING; NON-FASTING TSH W/REFLEX TO FT4 0.32 Reference Range > or = 20 Years 0.40-4.50 Ranges First trimester 0.26-2.66 Second trimester 0.55-2.73 Third trimester 0.43-2.91 T4, FREE 1.2 0.8-1.8 ng/dL Reason For Referral Reason elevated WBC Referral Organization [facility] KATERINA Referring Provider First Name Eboni Referring Provider Last Name Loree Referring Provider [facility] Notes Michael Obando 02:34:05 PM > faxed and they will call pt- pt informed Referral Priority Routine Reason Can you possibly fol low referral to Dr. Dean for persistent leukocytosis? She reports not having an appt. Diagnosis 1 Leukocytosis, unspec ified type (D72.829) Referral Organization [facility] Referring Provider First Name Maria Eugenia Referring Provider Last Name Shahida Referring Provider [facility] Notes Zehra Case 2023 11:29:50 AM >They have the referral. Spoke with Zulema. They will be calling the patient to schedule. Referral Priority Urgent Reason Please arrange thyro id US at [facility] for enlarged thyroid on exam. Diagnosis 1 Enlarged thyroid (E0 4.9) Referral Organization [facility] Referring Provider First Name Maria Eugenia Referring Provider Last Name Shahida Referring Provider Speciality Family Pra markice Referred Organization [facility] Referred Address [address] [facility], [place],[address],[place] Referred Provider Specialty Diagnostic R adiology General Notes Zehra Case 2024 03:49:21 PM >sent to [facility] to schedule Referral Priority Routine Medications Medication SIG (Take, Route, Frequency, Duration) [...] tab(s) orally on ce a day Active Social History Tobacco Use: Social History Observation Description Date Details (start date - stop date) Never Smoker NA - NA Smoking: Question Answer Notes Are you a: nonsmoker Problems Problem Type SNOMED Code ICD Code Onset Dates Problem Status W/U Status Risk Notes Problem 735553549 Depression with anxiety (F41.8) Active confirmed Problem 865900941 BMI 40.0-44.9, adult (Z68.41) Active confirmed Problem Leukocytosis (212726874) Leukocytosis (D72.829) Active confirmed Problem 358158809 Acquired hypothyroidism (E03.9) Active confirmed Problem 3951343 Enlarged thyroid (E04.9) Active confirmed Problem 099131293 Leukocytosis, unspecified type (D72.829) Active confirmed Vital Signs Heart Rate 76 /min 10/29/2024 Temperature 97.5 degrees Fahrenheit 10/29/2024 Blood pressure diastolic 78 mm Hg 10/29/2024 Height 5ft8in in 10/29/2024 Blood pressure systolic 112 mm Hg 10/29/2024 Weight 210.6 lbs 10/29/2024 BMI 32.02 kg/m2 10/29/2024 Encounters Encounter Location Date [facility] [address] [facility] [address] [place] [address] 08/29/2024 Provider Migration [facility] [address] [facility] [address] [place] [address] 11/04/2023 Maria Eugenia Arzate Finger tendinitis M77.8 [facility] [address] [facility] [address] [place] [address] 12/03/2023 Maria Eugenia Pinedo Leukocytosis, unspecified type D72.829 ; Left hip pain M25.552 and Pain of left sacroiliac joint M53.3 [facility] [address] [facility] [address] [place] [address] 02/13/2024 Eboni McMichelle Routine medical exam Z00.00 ; Elevated blood pressure reading R03.0 ; Acquired hypothyroidism E03.9 ; Depression with anxiety F41.8 and BMI 40.0-44.9, adult Z68.41 [facility] [address] [facility] [address] [place] [address] 07/13/2024 Maria Eugenia Arzate Strep sore throat J02.0 [facility] [address] [facility] [address] [place] [address] 08/13/2024 Eboni Loree Depression with anxiety F41.8 ; Leukocytosis D72.829 ; Acquired hypothyroidism E03.9 and Routine medical exam Z00.00 [facility] [address] [facility] [address] [place] [address] 10/29/2024 Maria Eugenia Pinedo Fungal skin infectio n B36.9 and Enlarged thyroid E04.9 [facility] [address] [facility] [address] [place] [address] 11/21/2023 Eboni McMichelle Leukocytosis D72.829 [facility] [address] [facility] [address] [place] [address] 08/17/2024 Eboni McNees [facility] [address] [facility] [address] [place] [address] 10/30/2024 Maria Eugenia Pinedo Enlarged thyroid E04 .9 [facility] [address] [facility] [address] [place] [address] 12/06/2023 Eboni Ralph Assessments Encounter Date Diagnosis (ICD Code) Assessment Notes Treatment Notes Treatment Clinical Notes Section Notes 11/04/2023 Finger tendinitis (ICD-10 - M77.8) Tendinitis of the flexor and possibly some of the extensor tendon here. Recommend rest as able, can alternate heat or ice and recommend a trial of anti-inflammator y for the next 2 weeks. Return precautions reviewed 11/21/2023 Leukocytosis (ICD-10 - D72.829) 12/03/2023 Left hip pain (ICD-10 - M25.552) Discussed the etiology and expected course of back pain related to muscle spasm/strain and possible SI joint dysfunction. SI joint x-ray showing mild degenerative changes, muscle relaxer. Normal hip x-ray. Discussed the role of pain medications/anti -inflammatories including Ibuprofen and Tylenol, heat pad, stretches, and to walk 30 mins a day. PRN muscle relaxer ordered. Counseled patient to not drive when taking this medication. Continue PT. Also, discussed signs and symptoms of worsening condition that may warrant reassessment in clinic or ED. Patient and voices understanding and agrees with the plan of care above. 12/03/2023 Leukocytosis, unspecified type (ICD-10 - D72.829) Persistent leukocytosis with left shift, not currently seeing peripherial smear. Will defer to Hemetologist Dr. Dean and have placed this referral once again. 02/13/2024 Routine medical exam (ICD-10 - Z00.00) Pap UTD Flu shot through employer Order provided for fasting labs 02/13/2024 Elevated blood pressure reading (ICD-10 - R03.0) Slightly elevated today. Monitor at home, Fu if consistently > 135/85 07/13/2024 Strep sore throat (ICD-10 - J02.0) Discussed infectious precautions, no school or return to work until afebrile for 24 hours. Encourage oral fluid intake and discussed fever treatment. Discussed importance of completing all antibiotics and reasons for followup. 08/13/2024 Depression with anxiety (ICD-10 - F41.8) Well controlled on current regimen. No changes made today 08/13/2024 Leukocytosis (ICD-10 - D72.829) Seen by hematology clinic last year. Leukocytosis stable from 2019 and thought to be related to her obesity. Will repeat CBC today to confirm stability 10/29/2024 Enlarged thyroid (ICD-10 - E04.9) Enlarged thyroid vs extra skin tissue with her weight loss. Case discussed with patient and will proceed with thyroid US as a precaution. Continue her thyroid replacement. Keep follow-up in December. 10/29/2024 Fungal skin infection (ICD-10 - B36.9) Start topical treatment above. Discussed to change underwear frequently, keep area dry and clean. Return to clinic if worsens or no improvement in a week. 10/30/2024 Enlarged thyroid (ICD-10 - E04.9) 08/13/2024 Acquired hypothyroidism (ICD-10 - E03.9) Will check TSH and adjust synthroid as indicated 02/13/2024 Acquired hypothyroidism (ICD-10 - E03.9) Will check TSH and treat as indicated 12/03/2023 Pain of left sacroiliac joint (ICD-10 - M53.3) 02/13/2024 Depression with anxiety (ICD-10 - F41.8) Well controlled on lexapro. No changes made today 02/13/2024 BMI 40.0-44.9, adult (ICD-10 - Z68.41) Discussed current BMI, need for diet, exercise, weight loss. Has appointment at bariatric center [facility] later this month 08/13/2024 Routine medical exam (ICD-10 - Z00.00) Plan Of Treatment Pending Test Test Name Order Date X ray : Hip, Left 12/03/2023 M-Complete Blood Count Auto Diff 024 M-Comprehensive Metabolic Panel 02/13/20 24 M-Lipid Panel 02/13/2024 M-Thyroid Stimulating Hormone 02/13/2024 M-Peripheral Smear Review 11/21/2023 US THYROID 10/30/2024 Next Appt Details Provider Name:Eboni Joaquin, 01/14/2025 03:30:00 PM, [address] [facility], [address], [place], [address], Insurance Providers Payer Name Payer Address Payer Phone Subscriber Number Group Number Insured Name Patient Relationship to Insured Coverage Start Date Coverage End Date [employer] [address] [place] [address] [phone] [id number] Ania Hardy Self - patient is the insured Medical (General) History Medical History History ICD Code hypothyroidism depression asthma Right SI Joint Dysfunction. Surgical History Surgery Date(Month/Year) C section X2 Gastric Bypass Surgery 06/16/2024
--- OUTSIDE RECORDS SUMMARY | 2024-11-03 08:42 | XMS_ITS | Encounter Summary ---
Author Organization [employer] Address [address] [place] [address] Care Team Providers Care Groutman Name Role Phone Eboni Ralph LIBBY Primary Care Provider Encounter Details Date Type Department Care Team ( Contact Info) Description 11/24/[address] [facility] Family [facility] [place] [address] ProviderMichela MD [address] [place] [id number] Social History Tobacco Use Types Packs/Day Years Used Date Smoking Tobacco: Never Assessed Comments Unknown Sex and Gender Information Value Date Recorded Sex Assigned at Not on file Legal Sex Female 7:00 PM CDT Gender Identity Not on file Sexual Orientation Not on file documented as of this encounter Miscellaneous Notes * [employer]ner Conversion Note - Michela Nielsen MD - 11/24/2019 11:05 AM CDT [place] Suicide Severity Rating Scale (C-SSRS) Entered On: 11/24/2019 11:46 EDT Performed On: 11/24/2019 11:46 EDT by Maria Eugenia Borges RN [place] Suicide Severity Rating Scale (C-SSRS) CSSRS Past Month Wish to be : No CSSRS Past Month Suicidal Thoughts : No CSSRS Lifetime Suicide Behavior : No Suicide Severity Rating Score : 0 Suicide Severity Rating : No Additional Care Required at this time Maria Eugenia Borges RN - 11/24/2019 11:46 EDT Electronically signed by Tracy Rasmussen Conversion Nuclear Medicine Specialist Cerner at 09/13/2022 2:01 PM CDT documented in this encounter Plan of Treatment Upcoming Encounters Date Type Department Care Team (Late Contact Info) Description 11/09/2024 1:30 PM EDT Audio - Telemedicine [facility] [address] [facility] [address] [place] [address] documented as of this encounter Visit Diagnoses Not on filedocumented in this encounter Care Teams Groutman Relationship Specialty Start Date End Date Eboni Ralph, ASSAULT AMPHIBIOUS VEHICLE OFFICER [address], [place] [address] PCP - General Nurse Practitioner 02/17/24 documented as of this encounter
--- OUTSIDE RECORDS SUMMARY | 2024-11-03 08:42 | XMS_ITS | Encounter Summary ---
Author Organization [email or web address] Address [address] [place] [address] Care Team Providers Care Certified Alcohol Counselor Name Role Phone Eboni Ralph LIBBY Primary Care Provider Encounter Details Date Type Department Care Team (Late st Contact Info) Description 11/19/2019 Transcribed Document [facility] [place] [facility] [place] [address] ProviderMichela MD [address] [place] [id number] Social History Tobacco Use Types Packs/Day Years Used Date Smoking Tobacco: Never Assessed Comments Unknown Sex and Gender Information Value Date Recorded Sex Assigned at Not on file Legal Sex Female 7:00 PM CDT Gender Identity Not on file Sexual Orientation Not on file documented as of this encounter Miscellaneous Notes * Cerner Conversion Note - Michela Nielsen MD - 11/19/2019 3:25 AM CDT [place] [id number] ANIA HARDY :1995 Visit Time:11/19/2019 Your Visit Summary Your Care Team Primary Provider: ARANZA JIMENEZ MD-EMR Secondary Provider: Your Diagnosis General medical Threatened Vaginal bleeding - > 20 wks Medical Information You may obtain a copy of your Emergency Department visit from Medical Records by calling the hospital phone number listed above and asking to be directed to the Medical Records Department. If you had special tests, such as EKG???s or X-rays, the interpretation of your tests given to you by the Emergency Department Physician is a preliminary report. Some fractures and illnesses fail to show up on preliminary tests. These will be reviewed again and we will call you if there are any new suggestions. If your symptoms continue notify your physician. After you leave, you should follow the instructions provided. What to do next Follow-Up Appointments Follow Up with Follow up with specialist When Within 2 to 3 days Comments Followup with DR. Shin today as directed. Allergies No Known Medication Allergies Immunizations This Visit No Immunizations Found Medications The home medications listed are only as accurate as the information you provided. Please continue taking all of your medications prescribed by your Primary Care Provider unless specifically told to change or discontinue the medication. Please direct any questions regarding your home medications to your Primary Care Provider. Take your medications faithfully. Do NOT skip medication. Do NOT stop taking medications without the direction of a physician. Carry a list of your medications with you at all times, and take this medication list with you to your first follow up visit. Report any side effects. Avoid herbal remedies unless discussed with your physician. As part of your treatment plan, your physician may have prescribed a limited course of a controlled substance. This medication may be given to help people with moderate or severe pain or for other medical conditions, but there are risks involved with treatment. Common side effects may include nausea, constipation, drowsiness, sweating, itching, dry mouth, and rash. More serious side effects may include cognitive and motor impairment, like problems with thinking, concentrating, alertness, and movement (e.g. slowed reflexes), and driving and operating heavy machinery can be dangerous. It is important for you to talk to your physician if you have these side effects or questions. These controlled substances can produce physical dependence and be habit-forming if taken for an extended period of time, which means that the body has gotten used to them and may experience withdrawal symptoms if they are abruptly stopped. Withdrawal symptoms can include runny nose, sweating, goose bumps, diarrhea, abdominal cramping, rapid heartbeat, difficulty sleeping, and nervousness. Please dispose of unused and medications per pharmacy guidance. Test Results Laboratory or Other Results This Visit (last charted value for your 11/19/2019 visit) Hematology 11/19/2019 0:54 AM WBC: 14.2 K/uL -- Normal range between ( 3.9 and 10.0 ) RBC: 4.55 Million/uL -- Normal range between ( 3.93 and 5.22 ) Hct: 37.8 % -- Normal range between ( 34.1 and 44.9 ) Hgb: 12.7 Gram/dL -- Normal range between ( 11.2 and 15.7 ) Platelet Count: 321 K/uL -- Normal range between ( 163 and 369 ) MCH: 27.9 pg -- Normal range between ( 25.6 and 32.2 ) MCHC: 33.6 Gram/dL -- Normal range between ( 32.3 and 36.5 ) MCV: 83.1 fL -- Normal range between ( 79.0 and 94.8 ) Slide Review: No Eos %: 2.8 % -- Normal range between ( 1.0 and 7.0 ) [place] #: 1.14 K/uL -- Normal range between ( 0.24 and 0.82 ) Eos #: 0.40 K/uL -- Normal range between ( 0.04 and 0.54 ) [place] %: 8.0 % -- Normal range between ( 4.7 and 12.5 ) Baso %: 0.4 % -- Normal range between ( 0.0 and 1.0 ) Baso #: 0.05 K/uL -- Normal range between ( 0.01 and 0.08 ) RDW: 13.3 % -- Normal range between ( 11.6 and 14.4 ) Neut %: 66.9 % -- Normal range between ( 34.0 and 71.0 ) Neut #: 9.50 K/uL -- Normal range between ( 1.56 and 6.13 ) Lymph %: 21.3 % -- Normal range between ( 19.3 and 53.0 ) Lymph #: 3.03 K/uL -- Normal range between ( 1.18 and 3.74 ) MPV: 9.1 fL -- Normal range between ( 9.4 and 12.4 ) IG#: 0 x10(3)/uL IG%: 1 % -- Normal range between ( 0 and 1 ) Blood Bank 11/19/2019 0:54 AM ABO/Rh: A NEG Antibody Screen (Tube): Negative ABSC Wk D Interp: Negative RhIg Product Ready: RhIg Prd Ready # of Vials: 1 General Chemistry 11/19/2019 0:54 AM Creatinine Level: 0.67 mg/dL -- Normal range between ( 0.55 and 1.02 ) Sodium Level: 137 mmol/L -- Normal range between ( 136 and 146 ) Potassium Level: 3.6 mmol/L -- Normal range between ( 3.5 and 5.1 ) Chloride Level: 107 mmol/L -- Normal range between ( 102 and 112 ) Carbon Dioxide Level: 20 mmol/L -- Normal range between ( 21 and 32 ) Anion Gap: 14 -- Normal range between ( 9 and 20 ) Bun/Creatinine: 10.4 -- Normal range between ( 8.0 and 20.0 ) Calcium Level: 8.7 mg/dL -- Normal range between ( 8.5 and 10.1 ) eGFR : >60 mL/min/1.73m2 eGFR NonAfrican: >60 mL/min/1.73m2 Glucose Level: 86 mg/dL -- Normal range between ( 74 and 106 ) Blood Urea Nitrogen: 7 mg/dL -- Normal range between ( 7 and 22 ) Endocrinology 11/19/2019 0:54 AM HCG Serum Quant: 78493.0 mIU/mL Education Materials Vaginal Bleeding During , First Trimester A small amount of bleeding from the vagina (spotting) is relatively common during early . It usually stops on its own. Various things may cause bleeding or spotting during early . Some bleeding may be related to the , and some may not. In many cases, the bleeding is normal and is not a problem. However, bleeding can also be a sign of something serious. Be sure to tell your health care provider about any vaginal bleeding right away. Some possible causes of vaginal bleeding during the first trimester include: ??? Infection or inflammation of the cervix. ??? Growths (polyps) on the cervix. ??? Miscarriage or threatened miscarriage. ??? tissue developing outside of the uterus (ectopic ). ??? A mass of tissue developing in the uterus due to an egg being fertilized incorrectly (molar ). Follow these instructions at home: Activity ??? Follow instructions from your health care provider about limiting your activity. Ask what activities are safe for you. ??? If needed, make plans for someone to help with your regular activities. ??? Do not have sex or orgasms until your health care provider says that this is safe. General instructions ??? Take rorf-tap-yonzidc and prescription medicines only as told by your health care provider. ??? Pay attention to any changes in your symptoms. ??? Do not use tampons or douche. ??? Write down how many pads you use each day, how often you change pads, and how soaked (saturated) they are. ??? If you pass any tissue from your vagina, save the tissue so you can show it to your health care provider. ??? Keep all follow-up visits as told by your health care provider. This is important. Contact a health care provider if: ??? You have vaginal bleeding during any part of your . ??? You have cramps or labor pains. ??? You have a fever. Get help right away if: ??? You have severe cramps in your back or abdomen. ??? You pass large clots or a large amount of tissue from your vagina. ??? Your bleeding increases. ??? You feel light-headed or weak, or you faint. ??? You have chills. ??? You are leaking fluid or have a gush of fluid from your vagina. Summary ??? A small amount of bleeding (spotting) from the vagina is relatively common during early . ??? Various things may cause bleeding or spotting in early . ??? Be sure to tell your health care provider about any vaginal bleeding right away. This information is not intended to replace advice given to you by your health care provider. Make sure you discuss any questions you have with your health care provider. Document Released: 02/20/2006 Document Revised: 08/15/2017 Document Reviewed: 08/15/2017 [employer] Patient Education ?? 2020 [employer]. Emergency Awareness and Preventative Care STROKE is an EMERGENCY Every Minute Counts Act FAST and Check for these signs: FACE Does the face look uneven? ARM Does one arm drift down? SPEECH Does their speech sound strange? TIME Call at any sign of stroke Stroke Risk Factors Atrial Fibrillation (irregular heartbeat) Diabetes Family history of stroke Heart Disease Heavy alcohol use High Blood Pressure High Cholesterol Physical inactivity and obesity Smoking Cigarette Smoking The facts are clear, cigarette smoking will shorten your life. Smoking can cause many illnesses along the way. As a healthcare provider, we recommend that you stop smoking. Assistance with quitting is available by contacting 7-363-IGIMNOW. This is a free resource providing counseling, support, and referral. Or you may contact your personal physician. National Suicide Prevention Lifeline: The National Suicide Prevention Lifeline is a national network of local crisis centers that provides free and confidential emotional support to people in suicidal crisis or emotional distress 24 hours a day, 7 days a week. Don't Wait! Stop a Heart Attack Before it Starts What is a heart attack? A heart attack is damage or to a part of the heart from severely decreased or lack of blood flow to the heart. Over time, arteries can become narrow from the buildup of fat and cholesterol, which is called plaque. The plaque can rupture causing a blood clot to form. When the blood clot forms, the artery can become severely narrowed or completely blocked, causing a heart attack. Heart attack is the leading cause of in the [place]. 85% of muscle damage occurs within the first 2 hours. Delay in the recognition of heart attack symptoms increases the chances of . Know the early symptoms of a heart attack: Nausea Feeling of fullness in chest Jaw Pain Pain that travels down one or both arms Fatigue/being tired Anxiety Back Pain Chest pressure, squeezing, or discomfort Shortness of breath Sweating, or a cold sweat Feeling of impending doom There are unusual signs of a heart attack, too! Women, the elderly, and diabetics may present with atypical symptoms: Fainting/dizziness Weakness Confusion Risk Factors for a Heart Attack Some heart disease risk factors, such as age and family history, cannot be changed. Others, like smoking and lack of exercise, can be changed. Smoking High Cholesterol High Blood Pressure Family History Obesity Age Gender (Males are at higher risk) Lack of Exercise Diabetes Diet Stress Excessive Alcohol Intake If you or someone you know is experiencing the signs and symptoms of a heart attack, DON???T DELAY. Call immediately and seek help. If someone collapses, perform CPR! Do not attempt to drive if you are having symptoms of heart attack. Hands-Only CPR Why Hands-Only CPR? Hands-Only CPR has been shown to be as effective as conventional CPR for cardiac arrests that occur outside of a hospital. Survival depends on immediately receiving CPR from someone nearby. How do you perform Hands-Only CPR? There are two easy steps: Call 9-1-1 if you see a teen or adult collapse Push hard and fast in the center of the chest at a beat of 100 beats per minute. Save a life! 4 WAYS TO GET AHEAD OF SEPSIS SEPSIS is a MEDICAL EMERGENCY. Time matters! Infections put you and your family at risk for a life-threatening condition called sepsis. Sepsis is the body's extreme response to an infection. It is life-threatening, and without timely treatment, sepsis can rapidly lead to tissue damage, organ failure, and . Sepsis happens when an infection you already have-in your skin, lungs, urinary tract or somewhere else-triggers a chain reaction throughout your body. 1 PREVENT INFECTIONS Take good care of chronic conditions. Talk to your doctor about getting the recommended vaccines. 2 PRACTICE GOOD HYGIENE Wash your hands frequently. Keep cuts or open sores clean and covered until they are healed. 3 KNOW THE SYMPTOMS Confusion or disorientation Shortness of breath High heart rate Fever, shivering, or feeling very cold Extreme pain or discomfort Clammy or sweaty skin 4 ACT FAST Get medical care IMMEDIATELY if you suspect sepsis or if you have an infection that is not getting better or is getting worse. To learn more about sepsis and how to prevent infections, visit www.cdc.gov/sepsis. The examination and treatment you have received in the Emergency Department has been done to provide an appropriate evaluation and stabilizing treatment on an emergency basis only. Given the limited resources, it is not meant to be a substitute for complete medical care. The follow-up doctor you named will receive a copy of your records and all test reports. IT IS IMPORTANT THAT YOU SCHEDULE A FOLLOW-UP APPOINTMENT AND ARE RE-EVALUATED. You should report any new complaints, symptoms, or remaining problems at that time. IT IS IMPOSSIBLE FOR THE EMERGENCY DEPARTMENT TO RECOGNIZE AND TREAT ALL ELEMENTS OF INJURY OR ILLNESS IN A SINGLE VISIT. If you have been referred to a specialist physician, it means that we believe you may have a condition that requires the expertise of a specialist. These physicians work in partnership with the hospital and have agreed to see referred patients in their office for further evaluation. KEEP IN MIND THAT THE SPECIALIST HAS HIS/HER OWN OFFICE POLICIES WHICH MAY REQUIRE PROPER INSURANCE OR PAYMENT UP FRONT BEFORE THE SPECIALIST WILL SEE YOU. It is your responsibility to call the specialist physician to make an appointment. We do not have the ability to refer patients to specialists/physicians that work with specific insurance companies. Please be advised that all financial charges or billing practices are determined by that practice, not the hospital. If your insurance company requires that you see a specialist from their approved list, it is your responsibility to contact your insurance company to make those arrangements. It is also your responsibility to follow any other requirements of your insurance company necessary to obtain coverage for claims submitted. We will bill your insurance; however, you are responsible today for any co-pay amounts. You will receive a separate bill for any services you may have received including: emergency, radiology, or pathology physicians. Patient Name:ANIA HARDY I have received this information and was given the opportunity to ask questions. Patient/Doubler Operator Name: Patient/Doubler Operator Signature: Relationship to Patient: Clinician/Hospital Doubler Operator Signature: Please Provide a Telephone Number Where You Can Be Reached: Is it Permissible To Leave a Message? Date: documented in this encounter Plan of Treatment Upcoming Encounters Date Type Department Care Team (Late st Contact Info) Description 11/09/2024 1:30 PM EDT Audio - Telemedicine [address] [place] [address] documented as of this encounter Visit Diagnoses Not on filedocumented in this encounter Care Teams Certified Alcohol Counselor Relationship Specialty Start Date End Date Eboni Ralph, [employer] [address] [place] [address], [facility] [address] [place] [address] PCP - General Nurse Practitioner 02/17/24 documented as of this encounter
--- OUTSIDE RECORDS SUMMARY | 2024-11-03 08:42 | XMS_ITS | Clinical Summary ---
Author Organization [employer] Address [address] [place] [address] Care Team Providers Care Air Filler Name Role Phone Eboni Ralph APRN Primary Care Provider Allergies No known active allergies Medications escitalopram [...] Morbid obesity due to excess calories 03/23/2024 Encounters Date Type Department Care Team Description 08/28/2024 Orders Only [facility] 160 [facility] [address] [place] [address] Miranda Cabello RN 08/26/2024 12:30 PM EDT Lab Patient Walk-In [facility] [address] [place] [address] Gastric bypass status for obesity; Disorder of iron metabolism; Vitamin B deficiency 08/26/2024 10:30 AM EDT Office Visit [facility] 160 [facility] [address] [place] [address] Caitie Velarde MD Gastric bypass status for obesity (Primary Dx); Disorder of iron metabolism; Vitamin D deficiency; Vitamin B deficiency 08/26/2024 Travel from Last 3 Months Social History Tobacco Use Types Packs/Day Years Used Date Smoking Tobacco: Never Smokeless Tobacco: Never Tobacco Cessation:Counseling Given: Not Answered Alcohol Use Standard Drinks/Week Comments Never 0 (1 standard drink = 0.6 oz pur e alcohol) Utilities Answer Date Recorded In the past 12 months, has t he [employer], gas, oil, or water [employer] threatened to shut off services in your home? No 06/16/2024 Interpersonal Safety Answer Date Record ed How often does anyone, dory de leon family and friends, physically hurt you? Never 06/16/2024 How often does anyone, dory de leon family and friends, insult or talk down to you? Never 06/16/2024 How often does anyone, dory de leon family and friends, threaten you with harm? Never 06/16/2024 How often does anyone, dory de leon family and friends, scream or curse at you? Never 06/16/2024 Housing Stability Answer Date Recorded What is your living situation today? I have a [facility] place to live 06/16/2024 Think about the [...] Do you speak a language other than Bur[place]ese at [facility]? No 06/16/2024 Do you want help with [...] 1:30 PM EDT Audio - Telemedicine [address] [address] Health Maintenance Due Date Last Done Comments Depression Screening (12+) 2009 HIV Screening 2012 Hepatitis C Screening 2015 Pneumococcal Vaccine: 0-49 Y ears (1 of 2 - PCV) 2016 COVID-19 VACCINE ( - 2023-2 5 season) 2024 11/29/2021, 03/03/2021, 08/07/2020, Additional history exists Influenza Vaccine (Season Ended) 2025 Tobacco Cessation Counseling and Screening (12+) 08/26/2025 08/26/2024 Pap Smear 05/08/2026 05/08/2023 Lipid Panel 03/20/2027 03/20/2024 DTAP/TDAP/TD VACCINES (3 - T d or Tdap) 01/25/2033 01/25/2023, 03/18/2020 Procedures Procedure Name Priority Date/Time Associated Diagnosis [...] 10.0 K/ L 08/26/2024 4:06 PM EDT [facility] RBC 4.67 3.93 - 6.08 M/ L 08/26/2024 4:06 PM EDT [facility] Hemoglobin 13.5 11.2 - 15.7 GM/DL 08/26/2024 4:06 PM EDT [facility] Hematocrit 40.8 34.1 - 44.9 % 08/26/2024 4:06 PM EDT [facility] MCV 87 79 - 95 fL 08/26/2024 4:06 PM EDT [facility] MCH 28.9 25.6 - 32.2 pg 08/26/2024 4:06 PM EDT [facility] MCHC 33.1 32.2 - 36.5 GM/DL 08/26/2024 4:06 PM EDT [facility] RDW 13.8 11.6 - 14.4 % 08/26/2024 4:06 PM EDT [facility] Platelets 307 163 - 369 K/CU MM 08/26/2024 4:06 PM EDT [facility] MPV 11.3 9.4 - 12.4 fL 08/26/2024 4:06 PM EDT [facility] % Neutros 56 34 - 71 % 08/26/2024 4:06 PM EDT [facility] % Lymphs 34 19 - 53 % 08/26/2024 4:06 PM EDT [facility] % Monos 7 4 - 13 % 08/26/2024 4:06 PM EDT [facility] % Eos 3 1 - 7 % 08/26/2024 4:06 PM EDT [facility] % Baso 1 0 - 1 % 08/26/2024 4:06 PM EDT [facility] # Neutros 5.47 1.56 - 6.13 K/ L 08/26/2024 4:06 PM EDT [facility] # Lymphs 3.29 1.18 - 3.74 K/ L 08/26/2024 4:06 PM EDT [facility] # Monos 0.65 0.24 - 0.82 K/ L 08/26/2024 4:06 PM EDT [facility] # Eos 0.26 0.04 - 0.54 K/ L 08/26/2024 4:06 PM EDT [facility] # Baso 0.07 0.01 - 0.08 K/ L 08/26/2024 4:06 PM EDT [facility] Immature Granulocytes-Re lative 0.10 0.00 - 0.60 % 08/26/2024 4:06 PM EDT [facility] # IG 0.01 0.00 - 0.05 K/uL 08/26/2024 4:06 PM EDT [facility] Blood Venipuncture / Unknown 08/26/2024 4:01 PM EDT 08/26/2024 4:01 PM EDT Narrative [facility] - 08/26/2024 4:06 PM EDT [...] Blast? Flag noted Atypical Lymph flag noted Caitie Velarde MD LAB BLOOD ORDERABLES Final Resu lt Performing Organization Address City/[facility]/ZIP Co de Phone Number [facility] [address] [phone] * MMA Serum/Plasma, Vitamin B12 Status(SENDOUT) (08/26/2024 4:01 PM EDT) MMA Serum/Plasma, Vitamin B12 Status 0.12 0.00 - 0.40 umol/L 08/31/2024 11:16 AM EDT [facility] Comment: INTERPRETIVE INFORMATION: MMA Serum/Plasma, Vitamin B12 Status This test was developed and its performance characteristics determined by [facility]. It has not been cleared or approved by the US Food and Drug Administration. This test was performed in a CLIA certified laboratory and is intended for clinical purposes. Performed By: [facility] [address] [place] [address] Manager Forms: Darell Bermudez MD, PhD CLIA Number: [id number] Blood Venipuncture / Unknown 08/26/2024 4:01 PM EDT 08/26/2024 4:01 PM EDT Caitie Velarde MD LAB BLOOD ORDERABLES Final Resu lt Performing Organization Address [facility]/ZIP Co de Phone Number [facility] [address] [phone] * (ABNORMAL) Vitamin D, 25-Hydroxy (08/26/2024 4:01 PM EDT) Vitamin D 25-Hydroxy 27.08(L) 30.0 - 100.0 ng/mL 08/26/2024 5:08 PM EDT [facility] Blood Venipuncture / Unknown 08/26/2024 4:01 PM EDT 08/26/2024 4:01 PM EDT Caitie Velarde MD LAB BLOOD ORDERABLES Final Resu lt Performing Organization Address [facility] Co de Phone Number [facility] [address] [phone] * PTH, intact (08/26/2024 4:01 PM EDT) PTH 69.9 18.4 - 80.1 pg/mL 08/26/2024 4:36 PM EDT [facility] PTH Type (pg/mL) Non-IntraO p pg/mL 08/26/2024 4:36 PM EDT [facility] Blood Venipuncture / Unknown 08/26/2024 4:01 PM EDT 08/26/2024 4:01 PM EDT us Caitie Velarde MD LAB BLOOD ORDERABLES Final Resu lt Performing Organization Address [facility] Phone Number [facility] [address] [place] [address], [facility] [phone] * Iron, serum (08/26/2024 4:01 PM EDT) Iron 54 50.0 - 170.0 ug/dL 08/26/2024 4:44 PM EDT [facility] Blood Venipuncture / Unknown 08/26/2024 4:01 PM EDT 08/26/2024 4:01 PM EDT us Caitie Velarde MD LAB BLOOD ORDERABLES Final Resu lt Performing Organization Address [facility]/ZIP Co de Phone Number [facility] [address] [place] [address], [facility] [phone] * Ferritin (08/26/2024 4:01 PM EDT) Ferritin 131.00 8.00 - 252.00 ng/mL 08/26/2024 4:45 PM EDT [facility] Blood Venipuncture / Unknown 08/26/2024 4:01 PM EDT 08/26/2024 4:01 PM EDT us Caitie Velarde MD LAB BLOOD ORDERABLES Final Resu lt [facility] [address] [employer] [facility] [employer] [address] [phone] * (ABNORMAL) Comprehensive metabolic panel (08/26/2024 4:01 PM EDT) Sodium 144 136 - 146 meq/L 08/26/2024 4:45 PM EDT [facility] Potassium 4.2 3.5 - 5.1 meq/L 08/26/2024 4:45 PM EDT [facility] Chloride 107 102 - 112 meq/L 08/26/2024 4:45 PM EDT [facility] CO2 28 21 - 32 meq/L 08/26/2024 4:45 PM EDT [facility] Calcium 9.3 8.5 - 10.1 mg/dL 08/26/2024 4:45 PM EDT [facility] Glucose 70(L) 74 - 106 mg/dL 08/26/2024 4:45 PM EDT [facility] BUN 9 7 - 22 mg/dL 08/26/2024 4:45 PM EDT [facility] Creatinine 0.65 0.55 - 1.02 mg/dL 08/26/2024 4:45 PM EDT [facility] BUN/Creatinine 14 8 - 20 08/26/2024 4:45 PM EDT [facility] Albumin 3.6 3.4 - 5.0 g/dL 08/26/2024 4:45 PM EDT [facility] Alkaline Phosphatase 100 27 - 136 U/L 08/26/2024 4:45 PM EDT [facility] ALT 22 12 - 78 U/L 08/26/2024 4:45 PM EDT [facility] AST 18 5 - 37 U/L 08/26/2024 4:45 PM EDT [facility] Total Bilirubin 0.3 0.2 - 1.3 mg/dL 08/26/2024 4:45 PM EDT [facility] Protein, Total 7.3 6.4 - 8.2 gm/dL 08/26/2024 4:45 PM EDT [facility] Anion Gap 13 9 - 20 08/26/2024 4:45 PM EDT [facility] A/G Ratio 1.0(L) 1.1 - 2.5 08/26/2024 4:45 PM EDT [facility] Globulin 3.7 1.5 - 4.5 g/dL 08/26/2024 4:45 PM EDT [facility] Osmolality Calc 283.9 mOsm/kg 4:45 PM EDT [facility] eGFR (mL/min/1.73m2) >60 >=60 mL/min/1.7 3m2 08/26/2024 4:45 PM EDT [facility] Comment:ESTIMATED GFR IS NOT ACCURATE CREATININE CLEARANCE IN PREDICTING GLOMERULAR FILTRATION RATE. ESTIMATED GFR IS NOT APPLICABLE FOR DIALYSIS PATIENTS. Blood Venipuncture / Unknown 08/26/2024 4:01 PM EDT 08/26/2024 4:01 PM EDT us Caitie Velarde MD LAB BLOOD ORDERABLES Final Resu lt [facility] [address] [phone] * (ABNORMAL) Lipid panel (03/20/2024 10:04 AM EDT) Triglycerides 90 0 - 249 mg/dL 03/20/2024 10:51 AM EDT [facility] Cholesterol 205(H) 0 - 199 mg/dL 03/20/2024 10:51 AM EDT [facility] Comment: 200 to 239 mg/dL = Moderate (borderline) >239 mg/dL = High HDL Cholesterol 60 >=40 mg/dL 03/20/2024 10:51 AM EDT [facility] Comment: >=60 mg/dL = Desirable <40 mg/dL = Increased Risk All other components are listed individually or are calculations VLDL Cholesterol 18 5 - 40 mg/dL 03/20/2024 10:51 AM EDT [facility] Cholesterol/HDL ratio 3.4(H) 0.0 - 3.2 03/20/2024 10:51 AM EDT [facility] LDl/HDL Ratio 2 0 - 4 03/20/2024 10:51 AM EDT [facility] RISK COMP 3 03/20/2024 10:51 AM EDT [facility] LDL Cholesterol, Calculated 127(H) 0 - 99 mg/dL 03/20/2024 10:51 AM EDT [facility] Blood Venipuncture / Unknown 03/20/2024 10:04 AM EDT 03/20/2024 10:04 AM EDT Ariane Forte PA-C LAB BLOOD ORDERABLES Fi nal Result [facility] [address] [place] [id number] [phone] from Last 3 Months or Most Recently Relevant to Health Maintenance Insurance [facility] Advance Directives For more information, please contact: [phone] * Full Code (Latest Code Status on File) Date Activated Date Inactivated Comments 06/16/2024 1:37 PM 06/17/2024 4:13 PM * Full Code Date Activated Date Inactivated Comments 06/16/2024 6:50 AM 06/16/2024 1:37 PM Care Teams Air Filler Relationship Specialty Start Date End Date Eboni Ralph, BOXCAR WEIGHER [address] [facility] [address], [facility] [address], [place] [phone] PCP - General Nurse Practitioner 02/17/24
--- OUTSIDE RECORDS SUMMARY | 2024-11-03 08:42 | XMS_ITS | Encounter Summary ---
Author Organization Healthcare Address [address] [place] [address] Care Team Providers Care Vulcanizer Rubber Plate Name Role Phone Provider, [facility] Primary Care Provid er Unavailable Jaiden Montenegro MD Primary Care Provider + [phone] Denis Ramirez MD Primary Care Provider Yanelis Wilson APRN Primary Care Provider [phone] Lauren Kim APRN Primary Care Provider [phone] Reason for Visit * Reason Comments Med Refill Encounter Details Date Type Department Care Team (Late Contact Info) Description 06/28/2021 Refill [facility] [address] [place] [address] Ayanna Huerta MD [address] [place] [address] Social History Tobacco Use Types Packs/Day Years Used Date Smoking Tobacco: Never Cigarettes Alcohol Use Standard Drinks/Week Comments Never 0 (1 standard drink = 0.6 oz pur e alcohol) Education Answer Date Recorded What is the highest level of school you have completed or the highest degree you have received? Associate degree: academic program 11/07/2020 Comments Unknown Sex and Gender Information Value Date Recorded Sex Assigned at Not on file Legal Sex Female 7:59 PM EDT Gender Identity Not on file Sexual Orientation Not on file documented as of this encounter Plan of Treatment Upcoming Encounters Date Type Department Care Team (Late Contact Info) Description 12/11/2024 1:15 PM EDT Clinical Support [facility] Res[facility] [address] [place] [address] Agata Thapa, GC [address] [place] [address] 10/14/2025 11:00 AM EDT Office Visit Obstetrics & Gynecology [address] [place] [address] Wanda Velarde, PHYS THERAPIST, CNM [address] [facility] [address] [place] [address] documented as of this encounter Visit Diagnoses Not on filedocumented in this encounter Care Teams Vulcanizer Rubber Plate Relationship Specialty Start Date End Date Provider, [facility] PCP - General 11/07/2007/27 Jaiden Montenegro MD [address] [place] [address] PCP - General Internal Medicine 07/28/21 11/12/21 Denis Ramirez MD [address] [facility] [address] [place] [address] PCP - General Family Medicine 11/13/21 11/13/21 Yanelis Wilson, PHYS THERAPIST [address] [place] [address] PCP - General Family Medicine 11/14/21 09/04/23 Lauren Kim, PHYS THERAPIST [address] [place] [address] PCP - General Family Medicine 09/05/23 documented as of this encounter
--- OUTSIDE RECORDS SUMMARY | 2024-11-03 08:42 | XMS_ITS | Encounter Summary ---
Author Organization Healthcare Address [address] [place] [address] Care Team Providers Care Marine Cargo Surveyor Name Role Phone Provider, [facility] Primary Care Provid er Unavailable Jaiden Montenegro MD Primary Care Provider + [phone] Denis Ramirez MD Primary Care Provider Yanelis Wilson APRN Primary Care Provider [phone] Lauren Kim APRN Primary Care Provider [phone] Encounter Details Date Type Department Care Team (Late st Contact Info) Description 10/26/2020 Orders Only Obstetrics & Gynecology [address] [place] [address] Shaylee Forbes Social History Tobacco Use Types Packs/Day Years Used Date Smoking Tobacco: Every Day Cigarettes Alcohol Use Standard Drinks/Week Comments Defer 0 (1 standard drink = 0.6 oz pur e alcohol) Comments Unknown Sex and Gender Information Value [...] & Respiratory [address] [place] [address] Agata Thapa, GC [address] [place] [address] 10/14/2025 11:00 AM EDT Office Visit Obstetrics & Gynecology [address] [place] [address] Wanda Velarde, PYROTECHNICIAN, CNM [address] [facility] [address] [place] [address] documented as of this encounter Visit Diagnoses Not on filedocumented in this encounter Care Teams Marine Cargo Surveyor Relationship Specialty Start Date End Date Provider, [facility] PCP - General 11/07/2007/27 Jaiden Montenegro MD [address] [place] [address] PCP - General Internal Medicine 07/28/21 11/12/21 Denis Ramirez MD [address] [facility] [address] [place] [address] PCP - General Family Medicine 11/13/21 11/13/21 Yanelis Wilson APRN [address] [facility] [address] [place] [address] PCP - General Family Medicine 11/14/21 09/04/23 Lauren Kim APRN [address] [place] [address] PCP - General Family Medicine 09/05/23 documented as of this encounter
--- OUTSIDE RECORDS SUMMARY | 2024-11-03 08:42 | XMS_ITS | Encounter Summary ---
Author Organization [employer] Address [address] [place] [address] Care Team Providers Care Manager Intensive Care Unit Name Role Phone Eboni Ralph [employer] Primary Care Provider Encounter Details Date Type Department Care Team (Late st Contact Info) Description 11/19/2019 Transcribed Document [facility] [place] [address] ProviderMichela MD [address] [place] [address] Social History Tobacco Use Types Packs/Day Years Used Date Smoking Tobacco: Never Assessed Comments Unknown Sex and Gender Information Value Date Recorded Sex Assigned at Not on file Legal Sex Female 7:00 PM CDT Gender Identity Not on file Sexual Orientation Not on file documented as of this encounter Miscellaneous Notes * Cerner Conversion Note - Michela ProviderMD - 11/19/2019 3:24 AM CDT documented in this encounter Plan of Treatment Upcoming Encounters Date Type Department Care Team (Late st Contact Info) Description 11/09/2024 1:30 PM EDT Audio - Telemedicine [facility] 160 [facility] [address] [place] [address] documented as of this encounter Visit Diagnoses Not on filedocumented in this encounter Care Teams Manager Intensive Care Unit Relationship Specialty Start Date End Date Eboni Ralph APRN [address] [place] [address], [address], [place] [address] PCP - General Nurse Practitioner 02/17/24 documented as of this encounter
--- OUTSIDE RECORDS SUMMARY | 2024-11-03 08:42 | XMS_ITS | Encounter Summary ---
Author Organization [facility] Address [address] [place] [address] Care Team Providers Care [facility] Sales Name Role Phone Eboni Ralph LIBBY Primary Care Provider Encounter Details Date Type Department Care Team ( Contact Info) Description 11/19/2019 Transcribed Document [facility] Family Medicine [facility] [place] [address] ProviderMichela MD [address] [place] [address] Social History Tobacco Use Types Packs/Day Years Used Date Smoking Tobacco: Never Assessed Comments Unknown Sex and Gender Information Value Date Recorded Sex Assigned at Not on file Legal Sex Female 7:00 PM CDT Gender Identity Not on file Sexual Orientation Not on file documented as of this encounter Miscellaneous Notes * Cerner Conversion Note - Michela Nielsen MD - 11/19/2019 12:18 AM CDT [place] Suicide Severity Rating Scale (C-SSRS) Entered On: 11/19/2019 0:31 EDT Performed On: 11/19/2019 0:31 EDT by MINO HOBBS Rn [place] Suicide Severity Rating Scale (C-SSRS) CSSRS Past Month Wish to be : No CSSRS Past Month Suicidal Thoughts : No CSSRS Lifetime Suicide Behavior : No Suicide Severity Rating Score : 0 Suicide Severity Rating : No Additional Care Required at this time IMNO HOBBS Rn - 11/19/2019 0:31 EDT Electronically signed by Tracy Rasmussen Conversion Geothermal Electrical Engineer Cerner at 09/13/2022 1:47 PM CDT documented in this encounter Plan of Treatment Upcoming Encounters Date Type Department Care Team (Late Contact Info) Description 11/09/2024 1:30 PM EDT Audio - Telemedicine [facility] [address] [place] [address] documented as of this encounter Visit Diagnoses Not on filedocumented in this encounter Care Teams Medical [facility] Sales Relationship Specialty Start Date End Date Eboni Ralph, FINANCIAL INTERNSHIP [address], [place] [address] PCP - General Nurse Practitioner 02/17/24 documented as of this encounter
--- OUTSIDE RECORDS SUMMARY | 2024-11-03 08:42 | XMS_ITS | Clinical Summary ---
Author Organization [place] [address] Care Team Providers Care Hr Clerk Name Role Phone Lauren Kim APRN Primary Care Provider [phone] Allergies No known active allergies Medications Vit-Fe Fumarate-FA ( 1+1 PO) Take by mouth. Active albuterol 108 (90 Base) MCG/ACT inhalerIndicati ons:Environment al and seasonal allergies Inhale 2 puffs every 6 (six) hours if needed for wheezing. 18 g 11 4 Active escitalopram (Lexapro) 20 MG tabletIndicatio ns:Generalized anxiety disorder,Morbid obesity with body mass index (BMI) of 40.0 or higher (CMS/HCC) Take 1 tablet (20 mg) by mouth 1 (one) time each day. 90 tablet 3 4 Active triamcinolone (Kenalog) 0.025 % ointmentIndicat ions:Other eczema Apply 2 x daily, large area 454 g 4 Active methocarbamol (Robaxin) 750 MG tabletIndicatio ns:Sacroiliac joint dysfunction of right side Take 1 tablet (750 mg) by mouth 3 (three) times a day if needed for muscle spasms for up to 28 days. 42 tablet 1 4 Active levothyroxine (Synthroid, Levoxyl) 125 MCG tabletIndicatio ns:Hypothyroidi sm, unspecified type TAKE 1 TABLET BY MOUTH 1 (ONE) TIME EACH DAY BEFORE BREAKFAST. 30 tablet 10 4 Active norethindrone-e thinyl estradiol (Quang 06/15) 1-20 MG-MCG tabletIndicatio ns:Surveillance for control, oral contraceptives, Family planning Take 1 tablet by mouth daily. 21 tablet 12 5 Active methylPREDNISol one (Medrol Dospak) 4 MG tabletsIndicati ons:Sacroiliac joint dysfunction of right side Take as directed on package. 21 tablet 4 10/08/19 25 Discontinue d(Per Patient Report) norethindrone-e thinyl estradiol (Quang 06/15) 1-20 MG-MCG tabletIndicatio ns:Abnormal uterine bleeding TAKE 1 TABLET BY MOUTH ONCE DAILY 21 tablet 5 10/08/19 25 Discontinue d(Reorder) Active Problems Problem Noted Date Diagnosed Date Abnormal uterine bleeding 09/04/2023 Assessment & Plan (09/04/2023 3:34 PM EDT): - heavy periods on xulane, would like to switch back to OCP to see if it helps - Lo-estrin Rx sent - if periods not improved in 3 months RTC for labs and ultrasound History of prior with IUGR 07/2022 History of delivery 08/29/2022 Assessment & Plan (11/26/2022 4:38 PM EDT): Interested in TOLAC - will continue to discuss! 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 Will start once weekly NSTs next week - GBS at 36 weeks - RTC every next week for NST Assessment & Plan (02/27/2023 4:37 PM EDT): - labs reviewed - growth US: breech, anterior plac, EFW 28%, AC 16%, JOSE ALFREDO 19, normal dopplers, BPP 01/01 - continue PNV and baby ASA - continue to discuss TOLAC vs. R c/s - growth is decreased from last US, this is around time that she developed IUGR and pre-eclampsia in last . Discussed pre-eclampsia symptoms. Discussed that decreasing growth could be do to developing pre-eclampsia in the future (normal BP today and asymptomatic) or from bicornuate uterus. Monitor symptoms. Repeat US in 4 weeks. - RTC every 2 weeks Assessment & Plan (01/25/2023 2:37 PM EDT): - labs reviewed - Tdap and Rhogam today - continue PNV and baby ASA - growth ultrasound at 32 weeks - continue to discuss TOLAC vs. R c/s - RTC every 2 weeks Uterine size-date discrepanc y in third trimester 01/25/2023 04/10/2023 Abnormal glucose affecting 12/27/2022 04/10/2023 History of pre-eclampsia in prior , currently 12/27/2022 04/10/2023 Assessment & Plan (03/20/2023 1:50 PM EDT): - Discussed that since 1000mg tylenol did not completely relieve headache, so will send prescription for muscle relaxer. state, incidental 08/29/2022 0 12/27/2022 Assessment & Plan (12/24/2022 2:27 PM EDT): - labs reviewed - glucola today - continue PNV and baby ASA - RTC to krystina US to complete anatomy on Assessment & Plan (11/26/2022 4:38 PM EDT): - labs reviewed - prelim krystina US breech, krystina place, normal limited krystina, fluid subjectively low - will await final read - continue PNV and baby ASA - glucola given for next visit - repeat US ordered for 4 weeks to complete anatomy - RTC 4 weeks Assessment & Plan (09/24/2022 4:33 PM EDT): - labs today - normal NT today, NIPT pending - continue PNV - baby ASA Rx sent - history of pre-eclampsia - will do baseline labs - krystina US ordered - RTC 4 weeks Assessment & Plan (08/29/2022 2:25 PM EDT): - labs today - pap up to date - repeat - US shows viable SIUP with CRL c/w LMP, keep LELIA 04/14/23 - desires genetic screening - FTS US ordered, desires NIPT - continue PNV - new OB backpack given - history of pre-eclampsia - will do baseline labs, start baby ASA at 12 weeks - RTC 4 weeks Pelvic pain 01/10/2022 08/29/2022 Assessment & Plan (01/10/2022 4:21 PM EDT): - Patient has a history of pain from ovarian cysts that has returned bilaterally. She had the Mirena IUD placed in May 2020 and a cyst was found in Oct 2020 with associated pain which resolved. - She has bilateral pelvic pain that comes and goes for a few minutes at a time, similar to the pain she experienced with her first cyst. She would like the IUD removed if it is the cause of her pain. - She is interested in OCPs and would like to try for in the next year. She had high BP at this visit and will try the progesterone only mini pill. - Mirena IUD was removed Morbid obesity with body mas s index (BMI) of 40.0 or higher 07/28/2021 08/29/2022 Acne 07/28/2021 07/28/2021 Allergic rhinitis due to pollen 07/28/2021 07/28/2021 Routine general medical exam ination at a [facility] care facility 07/28/2021 11/26/2022 Other ovarian cyst, left side 09/22/2020 07/28/2021 Anxiety and depression 07/18/202007/28 Bicornuate uterus 05/10/2020 07/28/2021 Encounters Date Type Department Care Team Description 10/12/2024 Telephone Pav [facility] [address] [place] [address] Agata Thapa, GC 10/07/2024 11:00 AM EDT Office Visit Obstetrics & Gynecology [address] [place] [address] Wanda Velarde, KENNEL TECHNICIAN, CNM Encounter for gynecological examination without abnormal finding (Primary Dx); Surveillance for control, oral contraceptives; Family planning; Family history of cancer of female genital organ 10/07/2024 Travel 10/06/2024 Travel 08/20/2024 Refill Obstetrics & Gynecology [address] [place] [address] Adina Mike MD Abnormal uterine bleeding from Last 3 Months Immunizations Immunization Administration Dates Next Due Influenza, injectable, quadrivalent, preservativ e free 03/08/2021,03/16/2020 MMR 05/08/2020 Rho (D) Immune Globulin 01/25/2023,10/17/2019 Tdap 01/25/2023,03/18/2020 Family History Medical History Relation Name Comments Asthma Brother Ezio Hardy Alcohol abuse Father Destin Hardy Depression Father Destin Hardy Ovarian cancer Maternal Cousin 1 Ovarian cancer Maternal Cousin 2 COPD Maternal Grandmother Hypothyroidism Maternal Grandmother Breast cancer Maternal Great-Grandmother Chronic Kidney Disease (NKF Classification) Mother Angela Hinojosantham Hypothyroidism Mother Angela Hinojosantham Kidney disease Mother Angela Hinojosantham Miscarriages / Stillbirths Mother Angela Hinojosantham Obesity Mother Angela Hinojosantham abnormal pap Mother Angela Yoder Ovarian cancer Other 1 hysterectomy Other 2 Coronary artery disease Paternal Grandfather Hypertension, benign Paternal Grandfather Prostate cancer Paternal Grandfather Hypertension, benign Paternal Grandmother Relation Name Status Comments Brother Ezio Hardy Father Destin Hardy Maternal Cousin 1 Unknown second Maternal Cousin 2 Unknown second Maternal Grandmother Maternal Great-Grandmother Unknown Mother Angela Yoder Other 1 maternal great aunt Other 2 Unknown maternal great great grandmother Paternal Grandfather Paternal Grandmother Social History Tobacco Use Types Packs/Day Years Used Date Smoking Tobacco: Never Smokeless Tobacco: Never Tobacco Cessation:Counseling Given: Not Answered Alcohol Use Standard Drinks/Week Comments Not Currently [...] place to sleep or slept in a correction (including now)? No 06/11/2023 [place] Depression Scale Answer Date Recorded [place] Depression Scale Total 0 04/10/2023 The thought of harming myself has occurred to me . Never 04/10/2023 Utilities Answer Date Recorded In the past 12 months has th [employer] electric, gas, oil, or water company threatened [...] Pulse 87 10/07/2024 11:09 AM EDT Temperature 36.7 C (98 F) 09/04/2023 2:02 PM EDT Respiratory Rate 17 09/04/2023 2:02 PM EDT Oxygen Saturation 99% 10/07/2024 11:09 AM EDT Inhaled Oxygen Concentration - - Weight 96.9 kg (213 lb 10 oz) 10/07/2024 11:09 A M EDT Height 177.8 cm (5' 10 ) 08/06/2023 4:34 PM EDT Body Mass Index 30.65 08/06/2023 4:34 PM EDT Plan of Treatment Upcoming Encounters Date Type Department Care Team (Late st Contact Info) Description 12/11/2024 1:15 PM EDT Clinical Support Pav [facility] [address] [place] [address] Agata Thapa, GC [address] [facility] Karishma [facility] [address] [place] [address] 10/14/2025 11:00 AM EDT Office Visit Obstetrics & Gynecology [address] [place] [address] Wanda Velarde, KENNEL TECHNICIAN, CNM [address] [facility] [address] [place] [address] Health Maintenance Due Date Last Done Comments [facility]-/Child/Adol SDOH Screenings 1995 HPV Vaccines (1 - 3-dose series) 2012 [facility]- SDOH Screenings 2015 [facility]-Adult SDOH Screenings 2015 [facility]-Hepatitis B Vaccines (1 of 3 - 19+ 3-dose series) 2016 [id number] Vaccine ( season) 2024 11/29/2021, 03/03/2021, 08/07/2020, Additional history exists [facility]-Influenza Vaccine (Season Ended) 2025 03/08/2021, 03/16/2020 [facility]-Depression Screening 10/07/2025 10/07/2024, 03/27 [facility]-Pap Smear 05/08/2026 05/08/2023 [facility]-DTaP,Tdap,and Td Vaccines (3 - Td or Tdap) 01/25/2033 01/25/2023, 03/18/2020 [facility]-Zoster Vaccines (1 of 2) 2047 [facility]-HIV Screening Completed 09/24/2022 [facility]-Hepatitis C Screening Completed 09/24/2022 [facility]-Obesity Intervention Completed 025, 09/04/2023, 08/26/2023, Additional history exists [facility]-HIB Vaccines Aged Out No longer e ligible based on patient's age to complete this topic [facility]-Hepatitis A Vaccines Aged Out No longer eligible based on patient's age to complete this topic [facility]-IPV Vaccines Aged Out No longer e ligible based on patient's age to complete this topic [facility]-Pneumococcal Vaccine: Pediatrics (0 to 5 Years) and At-Risk Patients (6 to 49 Years) Aged Out No longer eligible based on patient's age to complete this topic [facility]-Rotavirus Vaccines Aged Out No lo nger eligible based on patient's age to complete this topic [facility]-Varicella Vaccines Discontinued Goals Goal Patient Goal Type Associated Problems Recent Progress Patient-Stated? Author Delayed Delivery Care Plan CPM S22 PP LABOR (OBSTETRICS) No Open Scheduling, Background Procedures Procedure Name Priority Date/Time Associated Diagnosis Comments PAP TEST - CYTOLOGY Routine 05/08/2023 1 0:41 AM EST Smear, vaginal, as part of routine gynecological examination HEPATITIS C ANTIBODY W/REFLEX TO HCV QUANT PCR Routine 09/24/2022 4:07 PM EDT state, incidental HIV 1/2 ANTIBODY/ANTIGEN SCREEN WITH REFLEX TO HIV I/II DIFFERENTIATION Routine 09/24/2022 4:07 PM EDT state, incidental from Last 3 Months or Most Recently Relevant to Health Maintenance Results * Pap Test (05/08/2023 10:41 AM EST) Case Report Cytology Case: [id number] Authorizing Provider: Adina Mike MD Collected: 05/08/2023 1041 Ordering Location: Obstetrics & Gynecology Received: 05/09/2023 1130 First Screen: Angela Holcomb Specimen: ThinPrep Pap Test, Liquid-Based Cervical/Vaginal 05/22/2023 11:13 AM EST [facility] Interpretation NEGATIVE FOR INTRAEPITHELIAL LESION OR MALIGNANCY 05/22/2023 11:13 AM EST [facility] at 1113 EST Specimen Adequacy Satisfactory for evaluation; endocervical/sharpe sformation zone component absent/insufficie nt. Slide scanned and imaged by ThinPrep Imaging System with manual review of all selected jauregui. 05/22/2023 11:13 AM EST [facility] Cervical cytology is a screening test primarily for squamous cancers and precursors and has associated false negative and positive results. New technologies such as liquid based sampling may decrease but will not eliminate all false negative results. Regular screening and follow-up of unexplained clinical signs and symptoms are recommended to minimize false negative results. Please see the ASCCP website (www.asccp.org)fo r followup recommendations. If HPV testing was requested, correlation with the results is suggested (please call Microbiology at [phone] for results). 05/22/2023 11:13 AM EST [facility] Menstrual Status Post- 023 11:13 AM EST [facility] Contraceptive History Not Applicable 05/22/2023 11:13 AM EST [facility] Screening Type Routine Screen 2022 11:13 AM EST [facility] High Risk? No 05/22/2023 11:13 AM EST [facility] HPV Testing Requested? Request HPV testing if ASCUS or LSIL. 05/22/2023 11:13 AM EST [facility] Previous Cancer History No 05/22/2023 11:13 AM EST [facility] Clinical Information Z01.419, Z12.72 - Smear, vaginal, as part of routine gynecological examination [ICD-10-CM] 05/22/2023 11:13 AM EST [facility] Swab Vaginal and cervical cytologic material / Unknown Non-blood Collection / Unknown 05/08/2023 10:41 AM EST 05/09/2023 11:30 AM EST Adina Mike MD LAB CYTOLOGY ORDERABLES Final Result Performing Organization Address City/[facility] Co de Phone Number [facility] [address] [place] [address] * HIV 1 & 2 Antibody/Antigen Screen (09/24/2022 4:07 PM EDT) [facility] HIV 1 & 2 Antibody/Antigen Screen Non Reactive Non Reactive 09/24/2022 6:50 PM EDT [facility] Comment:Screening for HIV 1 & 2 antibodies, and P24 antigen is NONREACTIVE. No confirmatory testing is required. Blood Venous blood specimen / Unknown Venipuncture / Unknown 09/24/2022 4:07 PM EDT 09/24/2022 6:21 PM EDT Adina Mike MD LAB BLOOD ORDERABLES Fin al Result [facility] [address] [place] [address] * Hepatitis C Antibody (09/24/2022 4:07 PM EDT) Pathologist [facility] Hepatitis C Antibody Negative Negative 09/24/2022 6:50 PM EDT [facility]ALTH[facility]ARE [facility] Blood Venous blood specimen / Unknown Venipuncture / Unknown 09/24/2022 4:07 PM EDT 09/24/2022 6:21 PM EDT us Adina Mike MD LAB BLOOD ORDERABLES Fin al Result [facility] [address] [place] [id number] from Last 3 Months or Most Recently Relevant to Health Maintenance Additional Health Concerns Active Problems Noted Date Diagnosed Date CPM S22 PP LABOR (OBSTETRICS) 08/29/2022 Insurance [place] [address] [facility] [place] [address] Care Teams Hr Clerk Relationship Specialty Start Date End Date Lauren Kim APRN [address] [place] [address] PCP - General Family Medicine 09/05/23
--- OUTSIDE RECORDS SUMMARY | 2024-11-03 08:42 | XMS_ITS | Encounter Summary ---
Author Organization [employer] Address [address] [place] [address] Care Team Providers Care Special Delivery Carrier Name Role Phone Eboni Ralph LIBBY Primary Care Provider Encounter Details Date Type Department Care Team (Late st Contact Info) Description 11/24/2019 Transcribed Document [facility] [place] [address] ProviderMichela MD [address] [place] [address] [id number] Social History Tobacco Use Types Packs/Day Years Used Date Smoking Tobacco: Never Assessed Comments Unknown Sex and Gender Information Value Date Recorded Sex Assigned at Not on file Legal Sex Female 7:00 PM CDT Gender Identity Not on file Sexual Orientation Not on file documented as of this encounter Miscellaneous Notes * Cerner Conversion Note - Michela Nielsen MD - 11/24/2019 1:53 PM CDT Patient: ANIA HARDY Age: 24 years Sex: Female : 1995 Associated Diagnoses: ; Vaginal bleeding - < 20 wks ; Asthma; Medicine refill Author: TYRELL CRAFT MD-EMR History of Present Illness Patient was seen here 5 days ago for vaginal spotting, Rh negative. She received rhogam. Her bleeding stopped She had blood in her underwear when she awakened this am. Not since No new pains No fever No urinary complaint Her OB is Dr Zuniga and not available this week Review of Systems Constitutional symptoms: No fever, no chills. Skin symptoms: No rash, Eye symptoms: Negative except as documented in HPI. ENMT symptoms: Negative except as documented in HPI. Respiratory symptoms: Negative except as documented in HPI, she has asthma and is out of her inhaler, it is NOT bothering her right now.. Cardiovascular symptoms: Negative except as documented in HPI. Gastrointestinal symptoms: she has been having stretching pains LL Q diagnosed by her OB. These are UNCHANGED. Genitourinary symptoms: No dysuria, Musculoskeletal symptoms: No back pain, Neurologic symptoms: No headache, no dizziness. Additional review of systems information: All other systems reviewed and otherwise negative. Past Medical/ Family/ Social History Medical history Negative. Social history: Negative. Physical Examination Vital Signs Vital Measurements 11/24/2019 11:12 EDT Systolic Blood Pressure 144 mmHg HI Diastolic Blood Pressure 84 mmHg Temperature Source Oral Temperature Mode Fahrenheit Temperature, Fahrenheit 98.7 Deg F Clinical Temperature, C 37.1 Deg C Peripheral Pulse Rate 89 bpm Respiratory Rate 16 Breaths/Min Oxygen Saturation 98 % Oxygen Therapy Mode Room air . General: Alert, no acute distress. Skin: Warm, dry. Head: Normocephalic, atraumatic. Neck: Supple. Eye: Pupils are equal, round and reactive to light, extraocular movements are intact, normal conjunctiva. Ears, nose, mouth and throat: Oral mucosa moist. Cardiovascular: Regular rate and rhythm. Respiratory: Lungs are clear to auscultation, respirations are non-labored, breath sounds are equal, Symmetrical chest wall expansion. Gastrointestinal: Soft, Nontender, Non distended, Normal bowel sounds, No organomegaly. Back: Nontender, Normal range of motion. Musculoskeletal: Normal ROM, normal strength. Neurological: Alert and oriented to person, place, time, and situation, No focal neurological deficit observed. Psychiatric: Cooperative, appropriate mood & affect. Medical Decision Making Differential Diagnosis: Vaginal bleeding. Impression and Plan Diagnosis - Discharge, Emergency medicine, Medical Complaint of Vaginal bleeding - < 20 wks - Reason For Visit, Emergency medicine, Medical - Discharge, Emergency medicine, Medical Asthma - Discharge, Emergency medicine, Medical Medicine refill - Discharge, Emergency medicine, Medical Calls-Consults - amarjit Hand Condition: Unchanged. Disposition: Discharged Admit/Transfer/Discharge: Discharge (Order): Start: 11/24/2019 14:10 EDT, Discharge to: Home. Prescriptions: Prescription [employer] [facility]: albuterol [facility] free 90 mcg/inh inhalation aerosol with adapter (Prescribe): 2 Puff, Inhalation, QID, 17 Gram, 0 Refill(s) . Patient was given the following educational materials: Vaginal Bleeding During , Second Trimester, [id number]. Follow up with: CRISELDA CARLSON Within 2 to 3 days; REESE ZUNIGA Within 2 to 3 days Return for painful bleeding (back or low abdomen), or bleeding more the 1pad per hour Call Dr Zuniga today for an appointment within a week You do not need more Rhogam today , albuterol is safe in . Counseled: Patient, Regarding diagnosis, Regarding diagnostic results, Regarding treatment plan, Regarding prescription, Patient indicated understanding of instructions. documented in this encounter Plan of Treatment Upcoming Encounters Date Type Department Care Team (Late st Contact Info) Description 11/09/2024 1:30 PM EDT Audio - Telemedicine [address] [address] documented as of this encounter Visit Diagnoses Not on filedocumented in this encounter Care Teams Special Delivery Carrier Relationship Specialty Start Date End Date Eboni Ralph, OPTICIAN MANAGER [address] [facility] [address] [facility] [address] [place] [address] PCP - General Nurse Practitioner 02/17/24 documented as of this encounter
--- OUTSIDE RECORDS SUMMARY | 2024-11-03 08:42 | XMS_ITS | Encounter Summary ---
Author Organization Healthcare [place] [address] Care Team Providers Care Maintenance Job Titles Name Role Phone Julio Laurenevangelista Mark APRN Primary Care Provider [phone] Encounter Details Date Type Department Care Team (Latest Contact Info) Description 10/07/2024 Travel Social History Tobacco Use Types Packs/Day [...] place to sleep or slept in a senior living (including now)? No 06/11/2023 [place] Depression Scale Answer Date Recorded [place] Depression Scale Total 0 04/10/2023 The thought [...] on file documented as of this encounter Functional Status * Over the past 2 weeks, how often have you been bothered by any of the following problems? Question Answer Date of Assessment Author Little interest or pleasure in doing things Not at all 10/07/2024 11:10 AM Aye Snow RN Feeling down, depressed, or hopeless Not at all 10/07/2024 11:10 AM Aye Snow RN Patient Health Questionnaire -2 Score 0 10/07/2024 11:10 AM Aye Snow RN * If you checked off any problems on this questionnaire so far, Question Answer Date of Assessment Author How difficult have these problems made it for you to do your work, take care of things at home, or get along with other people? Not difficult at all 10/07/2024 11:10 AM EDT Aye Babcock RN documented as of this encounter Plan of Treatment Upcoming Encounters Date Type Department Care Team (Late st Contact Info) Description 12/11/2024 1:15 PM EDT Clinical Support Pav [facility] [address] [place] [address] Agata Thapa, GC [address] [place] [address] 10/14/2025 11:00 AM EDT Office Visit [facility] [address] [place] [address] Wanda Velarde, LIBBY, CNM [address] [facility] [address] [place] [address] documented as of this encounter [...] documented as of this encounter Care Teams Maintenance Job Titles Relationship Specialty Start Date End Date Lauren Kim, PST MANAGER [address] [place] [address] PCP - General Family Medicine 09/05/23 documented as of this encounter
--- OUTSIDE RECORDS SUMMARY | 2024-11-03 08:42 | XMS_ITS | Encounter Summary ---
Author Organization [facility] [employer] Address [address] [place] [address] Care Team Providers Care Sales And Service Engineer Name Role Phone Eboni Ralph LIBBY Primary Care Provider Encounter Details Date Type Department Care Team (Late st Contact Info) Description 11/19/2019 Transcribed Document [facility] Family Medicine [address] [place] [address] ProviderMichela MD [address] [place] [address] [id number] Social History Tobacco Use Types Packs/Day Years Used Date Smoking Tobacco: Never Assessed Comments Unknown Sex and Gender Information Value Date Recorded Sex Assigned at Not on file Legal Sex Female 7:00 PM CDT Gender Identity Not on file Sexual Orientation Not on file documented as of this encounter Miscellaneous Notes * Cerner Conversion Note - Michela Nielsen MD - 11/19/2019 12:43 AM CDT Patient: NAIA HARDY Age: 24 years Sex: Female : 1995 Associated Diagnoses: Threatened Author: BRYON JIMENEZ MD-EMR Basic Information Additional information: Chief Complaint from Nursing Triage Note : Chief Complaint 11/19/2019 0:24 EDT Chief Complaint Pt co vaginal bleeding that began tonight denies pain. Pt is 11 weeks . Skinpwd. . History of Present Illness The patient is a 24-year-old female, G1 at 11 weeks gestational age with an estimated due date of 2020. She states that she had some vaginal bleeding at the end of September and was diagnosed with a subchorionic hemorrhage. She presents tonight with onset of vaginal bleeding just prior to arrival. No abdominal pain. No passage of clear fluid. No fever no chills. No passage of tissue. No dysuria or hematuria. No trauma Review of Systems Constitutional symptoms: Negative except as documented in HPI. Skin symptoms: Negative except as documented in HPI. Eye symptoms: Negative except as documented in HPI. ENMT symptoms: Negative except as documented in HPI. Respiratory symptoms: Negative except as documented in HPI. Cardiovascular symptoms: Negative except as documented in HPI. Gastrointestinal symptoms: Negative except as documented in HPI. Genitourinary symptoms: Negative except as documented in HPI. Musculoskeletal symptoms: Negative except as documented in HPI. Neurologic symptoms: Negative except as documented in HPI. Psychiatric symptoms: Negative except as documented in HPI. Endocrine symptoms: Negative except as documented in HPI. Hematologic/Lymphatic symptoms: Negative except as documented in HPI. Allergy/immunologic symptoms: Negative except as documented in HPI. Additional review of systems information: All other systems reviewed and otherwise negative, All systems reviewed as documented in chart. Health Status Allergies: Allergic Reactions (Selected) No Known Medication Allergies. Past Medical/ Family/ Social History Surgical history: No active procedure history items have been selected or recorded.. Family history: No family history items have been selected or recorded.. Social history: Social & Psychosocial Habits Alcohol 11/19/2019 Alcohol Use History, Social Habits No 11/19/2019 Alcohol Use History, Social Habits No Tobacco 11/19/2019 Smoking Status Never (less than 100 in l . Problem list: Active Problems (1) Asthma . Physical Examination Vital Signs Vital Signs/Vital Measures 11/19/2019 0:24 EDT Systolic Blood Pressure 143 mmHg HI Diastolic Blood Pressure 98 mmHg HI Temperature Source Temporal artery scanning Temperature Mode Fahrenheit Temperature, Fahrenheit 98.5 Deg F Clinical Temperature, C 36.9 Deg C Peripheral Pulse Rate 109 bpm HI Respiratory Rate 18 Breaths/Min Oxygen Saturation 98 % Oxygen Therapy Mode Room air . Measurements 11/19/2019 0:24 EDT Height Source Measured Height Entry Format [place] Height/Length, LITHUANIAN (ft) 5 ft Height/Length LITHUANIAN 7 Inch CLINICALHEIGHT 170.18 cm [place] Body Weight 61.16 kg Weight Source, ED Standing scale Weight Entry Format [place] Weight [place]i lb 267 lb CLINICALWEIGHT 121.36 kg Body Surface Area (BSA) 2.29 m2 Body Mass Index 41.9 kg/m2 >HHI . Oxygen Saturation 11/19/2019 0:24 EDT Oxygen Saturation 98 % . General: Alert, no acute distress. Skin: Warm, dry, intact. Head: Normocephalic, atraumatic. Neck: Supple. Eye: Pupils are equal, round and reactive to light, extraocular movements are intact. Ears, nose, mouth and throat: Oral mucosa moist. Cardiovascular: Regular rate and rhythm. Respiratory: Lungs are clear to auscultation. Chest wall: No tenderness. Back: Nontender, Normal range of motion. Musculoskeletal: Normal ROM, normal strength. Gastrointestinal: Soft, Nontender, Non distended, Normal bowel sounds. Neurological: Alert and oriented to person, place, time, and situation, No focal neurological deficit observed. Lymphatics: No lymphadenopathy. Psychiatric: Cooperative. Medical Decision Making Documents reviewed: Emergency department nurses' notes. Radiology results: NAME: ANIA HARDY / SEX: 1995 / Female MRN / ACC#: [id number] / [id number] ORDERING PHYSICIAN: Bryon Jimenez M.D., EXAM REQUESTED: [id number]--OW TRANSVAGINAL FACILITY: [facility] DATE: 11/19/2019 RADIOLOGIST NAME: Silver Donahue CLINICAL HISTORY: Bleeding x couple hours, h/o subchor hemorrhage per pt by OB at beginning of month, denies clotting or ABD pain, Pt has OB apt today FINDINGS: No apparent acute abnormality. Living intrauterine , measuring 11 weeks and zero days-- motion and regular cardiac activity demonstrated. Normal amniotic fluid volume. No gross uteroplacental hemorrhage.. Reexamination/ Reevaluation Time: 11/19/2019 03:23:00 . Interventions: Condition resting comfortably. No active bleeding : normal external genitalia. SPEC: os closed, no active bleeding, small amount of old blood in vag. vault., Pt was given IM Rhogam.. Impression and Plan Diagnosis Threatened - Discharge, Emergency medicine, Medical Plan Condition: Improved, Stable. Patient was given the following educational materials: Vaginal Bleeding During , First Trimester. Follow up with: ; Follow up with specialist Within 2 to [address] Shin today as directed. . Counseled: Patient. Orders: Launch Orders Admit/Transfer/Discharge: Discharge (Order): Start: 11/19/2019 3:24 EDT, Discharge to: Home. documented in this encounter Plan of Treatment Upcoming Encounters Date Type Department Care Team (Late st Contact Info) Description 11/09/2024 1:30 PM EDT Audio - Telemedicine [address] [place] [address] documented as of this encounter Visit Diagnoses Not on filedocumented in this encounter Care Teams Sales And Service Engineer Relationship Specialty Start Date End Date Eboni Ralph, COMPUTER LABORATORY TECHNICIAN [address] [facility] [address], [facility] 2 [place] [address] PCP - General Nurse Practitioner 02/17/24 documented as of this encounter
--- OUTSIDE RECORDS SUMMARY | 2024-11-03 08:42 | XMS_ITS | Encounter Summary ---
Author Organization [employer] Address [address] [place] [address] Care Team Providers Care Bundle Collector Name Role Phone Eboni Ralph LIBBY Primary Care Provider Encounter Details Date Type Department Care Team (Late st Contact Info) Description 11/24/2019 Transcribed Document [facility] Family Medicine [facility] [place] [address] ProviderMichela MD [address] [place] [address] Social History Tobacco Use Types Packs/Day [...] Nielsen MD - 11/24/2019 11:05 AM CDT ED Assessment Entered On: 11/24/2019 11:50 EDT Performed On: 11/24/2019 11:47 EDT by Maria Eugenia Borges RN ED Quick Look Assessment Level of Consciousness : Alert, Awake Affect/Behavior : Appropriate, Calm, Cooperative Orientation : Oriented x 4 Skin Temperature : Warm Skin Description : Dry, Wisdom Maria Eugenia Borges RN - 11/24/2019 11:47 EDT ED General-Functional Assess Information Obtained From : Patient Communication Barrier : None Primary Language : Jordanian Any Spiritual/Cultural Needs or Requests : No Currently in Unsafe Situation : No Maria Eugenia Borges RN - 11/24/2019 11:47 EDT Social Habits Smoking Status : Never (less than 100 in lifetime; none in last 30 days) Smokeless Tobacco Status : Never Desires Tobacco Cessation Calc : 0 Maria Eugenia Borges RN - 11/24/2019 11:47 EDT Social History (As Of: 11/24/2019 11:50:25 EDT) Tobacco: Never (less than 100 in lifetime) Smoking Status. (Last Updated: 11/19/2019 00:27:26 EDT by BENJAMIN MONTANA, RN) Alcohol: Alcohol Use History No. (Last Updated: 11/19/2019 00:27:30 EDT by BENJAMIN MONTANA, RN) Alcohol Use History No. (Last Updated: 11/19/2019 00:27:33 EDT by BENJAMIN MONTANA, RN) Substance Abuse: Drug Use Hx: No. Use in Last 12 Months: No. (Last Updated: 11/19/2019 00:46:02 EDT by ARANZA JIMENEZ MD-EMR) Genitourinary Assessment, ED Status : Confirmed positive : 1 Para : 0 Genitourinary Assessment Comment : pt c/o vaginal bleeding the same as last week for same. pt states couldnt get ahold of OB. Maria Eugenia Borges RN - 11/24/2019 11:47 EDT Electronically signed by Valery [facility] Conversion Rn Oncology Research Cerner at 09/13/2022 1:50 PM CDT documented in this encounter Plan of Treatment Upcoming Encounters Date Type Department Care Team (Late st Contact Info) Description 11/09/2024 1:30 PM EDT Audio - [facility]icine [facility] Bariatric Services [address] [facility] [address] [place] [address] documented as of this encounter Visit Diagnoses Not on filedocumented in this encounter Care Teams Bundle Collector Relationship Specialty Start Date End Date Eboni Ralph, REAMER HAND [address] [facility] [address], [place] [address], [place] [address] PCP - General Nurse Practitioner 02/17/24 documented as of this encounter
--- OUTSIDE RECORDS SUMMARY | 2024-11-03 08:43 | XMS_ITS | Encounter Summary ---
Author Organization [employer] Address [address] [place] [address] Care Team Providers Care Underwriting Assistant Name Role Phone Eboni Ralph LIBBY Primary Care Provider Encounter Details Date Type Department Care Team (Late st Contact Info) Description 11/19/2019 Transcribed Document [facility] Family [place] [facility] [place] [address] ProviderMichela MD [address] [place] [address] Social History Tobacco Use Types Packs/Day Years Used Date Smoking Tobacco: Never Assessed Comments Unknown Sex and Gender Information Value Date Recorded Sex Assigned at Not on file Legal Sex Female 7:00 PM CDT Gender Identity Not on file Sexual Orientation Not on file documented as of this encounter Miscellaneous Notes * Cerner Conversion Note - Michela Nielsen MD - 11/19/2019 3:33 AM CDT ED Discharge Entered On: 11/19/2019 3:33 EDT Performed On: 11/19/2019 3:33 EDT by MINO HOBBS Rn Discharge Process Patient Disposition : Discharge Personal Belongings With Patient : Yes Patient Education Completed : Yes Teaching Evaluation : Verbalizes understanding Link to Valuables and Belongings form : No IV Discontinued : Yes Nursing Documentation Completed : Yes MINO HOBBS Rn - 11/19/2019 3:33 EDT ED Discharge Discharge To : Home with ambulatory/outpatient follow-up Name of Receiving Facility/Provider : PCP Mode Of Departure : Ambulatory Accompanied By : Significant other Discharge Instructions Reviewed With, Opportunity For Questions Given : Patient Prescriptions Given to Patient : No Medications Given to Patient : No MINO HOBBS Rn - 11/19/2019 3:33 EDT Electronically signed by Valery [facility] Conversion General Manager Road Production Cerner at 09/13/2022 2:05 PM CDT documented in this encounter Plan of Treatment Upcoming Encounters Date Type Department Care Team (Late st Contact Info) Description 11/09/2024 1:30 PM EDT Audio - Telemedicine [address] [place] [address] documented as of this encounter Visit Diagnoses Not on filedocumented in this encounter Care Teams Underwriting Assistant Relationship Specialty Start Date End Date Eboni Ralph, COAL PULVERIZER OPERATOR [address] [facility] [address], [place] [address], [place] [address] PCP - General Nurse Practitioner 02/17/24 documented as of this encounter
--- OUTSIDE RECORDS SUMMARY | 2024-11-03 08:43 | XMS_ITS | Encounter Summary ---
Author Organization [employer] Address [address] [place] [address] Care Team Providers Care Milk Pickup Truck Driver Name Role Phone Eboni Ralph LIBBY Primary Care Provider Encounter Details Date Type Department Care Team (Late st Contact Info) Description 11/24/2019 Transcribed Document [facility] [place] [facility] [place] [address] ProviderMichela MD [address] [place] [address] Social History Tobacco Use Types Packs/Day Years Used Date Smoking Tobacco: Never Assessed Comments Unknown Sex and Gender Information Value Date Recorded Sex Assigned at Not on file Legal Sex Female 7:00 PM CDT Gender Identity Not on file Sexual Orientation Not on file documented as of this encounter Miscellaneous Notes * Cerner Conversion Note - Michela Nielsen MD - 11/24/2019 2:29 PM CDT ED Discharge Entered On: 11/24/2019 14:30 EDT Performed On: 11/24/2019 14:29 EDT by Maria Eugenia Borges RN Discharge Process Patient Disposition : Discharge Personal Belongings With Patient : Yes Patient Education Completed : Yes Teaching Evaluation : Verbalizes understanding IV Discontinued : Yes Nursing Documentation Completed : Yes Maria Eugenia Borges RN - 11/24/2019 14:29 EDT ED Discharge Discharge To : Home without planned follow-up Mode Of Departure : Private vehicle Accompanied By : Significant other Discharge Instructions Reviewed With, Opportunity For Questions Given : Patient Prescriptions Given to Patient : Electronically sent Medications Given to Patient : No Maria Eugenia Borges RN - 11/24/2019 14:29 EDT documented in this encounter Plan of Treatment Upcoming Encounters Date Type Department Care Team (Late st Contact Info) Description 11/09/2024 1:30 PM EDT Audio - Telemedicine [facility] Services [address] [place] [address] [address] [place] [address] documented as of this encounter Visit Diagnoses Not on filedocumented in this encounter Care Teams Milk Pickup Truck Driver Relationship Specialty Start Date End Date Eboni Ralph, SHAKER FLATWORK 1210 [facility] [address], [facility] 2 [place] [address] PCP - General Nurse Practitioner 02/17/24 documented as of this encounter
--- OUTSIDE RECORDS SUMMARY | 2024-11-03 08:43 | XMS_ITS | Encounter Summary ---
Author Organization [employer] Address [address] [place] [address] Care Team Providers Care Vat Skimmer Name Role Phone Eboni Ralph LIBBY Primary Care Provider Encounter Details Date Type Department Care Team (Late st Contact Info) Description 11/24/2019 Transcribed Document [facility] Family Medicine [facility] [place] [address] ProviderMichela MD [address] [place] [address] Social History Tobacco Use Types Packs/Day [...] MD - 11/24/2019 11:05 AM CDT ED Triage Entered On: 11/24/2019 11:15 EDT Performed On: 11/24/2019 11:12 EDT by JAMES HART, BANQUET DIRECTOR Triage Across the Room Chief Complaint : pt 11 wks , having vag bleeding, here last week for the same, unable ot get ahold of PROOFING MACHINE OPERATOR, came ot ER for eval, , got rogham shot last week Triage Date/Time : 11/24/2019 11:12 EDT JAMES HART RN - 11/24/2019 11:12 EDT DCP GENERIC CODE Tracking Acuity : 3 - Urgent Tracking Group : [facility] ED East JAMES HART RN - 11/24/2019 11:12 EDT Mode of Arrival : Ambulatory Transported to ED by : Private vehicle To Room Via : Ambulate Accompanied By : Spouse ED Vital Signs : Document Height & Weight : Document ED Allergies : Document ED Reason for Visit : Document Tetanus Immunization : Unknown Rehab/Pre Vocational Counselor Needed : No JAMES HART RN - 11/24/2019 11:12 EDT Infectious Disease History Has the patient ever been tested for COVID-19? : No, Patient stated COVID19 Screening : No Experiencing Infectious Disease Symptoms : No symptoms Physical contact outside US in the last 30 days : No Infectious Disease Symptoms Score : 0 Infectious Disease History : None Tuberculosis Symptoms : None JAMES HART RN - 11/24/2019 11:12 EDT Vital Signs ED Temperature Source : Oral Temperature Mode : Fahrenheit Temperature, Fahrenheit : 98.7 Deg F ED Pain : No Clinical Temperature, C : 37.1 Deg C Oxygen Therapy Mode : Room air Peripheral Pulse Rate : 89 bpm Respiratory Rate : 16 Breaths/Min Systolic Blood Pressure : 144 mmHg (HI) Diastolic Blood Pressure : 84 mmHg Oxygen Saturation : 98 % JAMES HART RN - 11/24/2019 11:12 EDT Allergy (As Of: 11/24/2019 11:15:07 EDT) Allergies (Active) No Known Medication Allergies Estimated Onset Date: Unspecified ; Created By: BENJAMIN MONTANA RN; Reaction Status: Active ; Category: Drug ; Substance: No Known Medication Allergies ; Type: Allergy ; Updated By: BENJAMIN MONTANA RN; Reviewed Date: 11/24/2019 11:14 EDT Diagnosis Control ED (As Of: 11/24/2019 11:15:07 EDT) Problems(Active) Asthma (SNOMED CT :318088838 ) Name of Problem: Asthma ; Recorder: BENJAMIN MONTANA RN; Confirmation: Confirmed ; Classification: Medical ; Code: [id number] ; Contributor System: K Spine ; Last Updated: 11/19/2019 0:26 EDT ; Life Cycle Date: 11/19/2019 ; Life Cycle Status: Active ; Vocabulary: SNOMED CT Diagnoses(Active) Vaginal bleeding - < 20 wks Date: 11/24/2019 ; Diagnosis Type: Reason For Visit ; Confirmation: Complaint of ; Clinical Dx: Vaginal bleeding - < 20 wks ; Classification: Medical ; Clinical Service: Emergency medicine ; Code: PNED ; Probability: 0 ; Diagnosis Code: [id number] ED Height and Weight Height Source : Stated Height Entry Format : [place] Height, Feet : 5 ft(Converted to: 152 cm, 60 Inch) Height, Inches : 7 Inch(Converted to: 0 ft 7 Inch, 17.78 cm) Clinical Height : 170.18 cm Weight Source, ED : Critical estimated dosing weight Weight Entry Format : [place] Weight, Pounds : 264 lb Clinical Dosing Weight : 120 kg Body Surface Area (BSA) : 2.28 m2 Body Mass Index : 41.4 kg/m2 (>HHI) [place] Body Weight (IBW) : 61.16 kg JAMES HART RN - 11/24/2019 11:12 EDT Electronically signed by Valery [facility] Conversion Engine Generator Assembler Cerner at 09/13/2022 2:08 PM CDT documented in this encounter Plan of Treatment Upcoming Encounters Date Type Department Care Team (Late st Contact Info) Description 11/09/2024 1:30 PM EDT Audio - Telemedicine [facility] Bariatric Services [address] [place] [address] [address] [place] [address] documented as of this encounter Visit Diagnoses Not on filedocumented in this encounter Care Teams Vat Skimmer Relationship Specialty Start Date End Date Eboni Ralph, DOCTOR OF AUDIOLOGY [address] [facility] [address], [facility] 2 [place] [address] PCP - General Nurse Practitioner 02/17/24 documented as of this encounter
--- OUTSIDE RECORDS SUMMARY | 2024-11-03 08:43 | XMS_ITS | Encounter Summary ---
Author Organization [employer] Address [address] [place] [address] Care Team Providers Care Catalyst Supervisor Name Role Phone Eboni Ralph LIBBY Primary Care Provider Encounter Details Date Type Department Care Team (Late st Contact Info) Description 11/19/2019 Transcribed Document [facility] [place] [facility] [place] [address] ProviderMichela MD [address] [place] [address] Social History Tobacco Use Types Packs/Day [...] Nielsen MD - 11/19/2019 12:18 AM CDT ED Triage Entered On: 11/19/2019 0:26 EDT Performed On: 11/19/2019 0:24 EDT by BENJAMIN MONTANA, FISHING ROD MARKER Triage Across the Room Chief Complaint : Pt co vaginal bleeding that began tonight denies pain. Pt is 11 weeks . Skinpwd. Triage Date/Time : 11/19/2019 0:24 EDT BENJAMIN MONTANA RN - 11/19/2019 0:24 EDT DCP GENERIC CODE Tracking Acuity : 3 - Urgent Tracking Group : [facility] ED East BENJAMIN MONTANA RN - 11/19/2019 0:24 EDT Mode of Arrival : Ambulatory Transported to ED by : Private vehicle To Room Via : Ambulate Accompanied By : Significant other ED Vital Signs : Document Height & Weight : Document ED Allergies : Document ED Reason for Visit : Document Status : Confirmed positive BENJAMIN MONTANA RN - 11/19/2019 0:24 EDT Infectious Disease History Has the patient ever been tested for COVID-19? : No, Patient stated COVID19 Screening : No Experiencing Infectious Disease Symptoms : No symptoms Physical contact outside US in the last 30 days : No Infectious Disease Symptoms Score : 0 Infectious Disease History : None Tuberculosis Symptoms : None BENJAMIN MONTANA RN - 11/19/2019 0:24 EDT Vital Signs ED Temperature Source : Temporal artery scanning Temperature Mode : Fahrenheit Temperature, Fahrenheit : 98.5 Deg F ED Pain : No Clinical Temperature, C : 36.9 Deg C Oxygen Therapy Mode : Room air Peripheral Pulse Rate : 109 bpm (HI) Respiratory Rate : 18 Breaths/Min Systolic Blood Pressure : 143 mmHg (HI) Diastolic Blood Pressure : 98 mmHg (HI) Oxygen Saturation : 98 % BENJAMIN MONTANA RN - 11/19/2019 0:24 EDT Allergy (As Of: 11/19/2019 00:26:39 EDT) Allergies (Active) No Known Medication Allergies Estimated Onset Date: Unspecified ; Created By: BENJAMIN MONTANA RN; Reaction Status: Active ; Category: Drug ; Substance: No Known Medication Allergies ; Type: Allergy ; Updated By: BENJAMIN MONTANA RN; Reviewed Date: 11/19/2019 0:25 EDT Diagnosis Control ED (As Of: 11/19/2019 00:26:39 EDT) Problems(Active) Asthma (SNOMED CT :[id number] ) Name of Problem: Asthma ; Recorder: BENJAMIN MONTANA RN; Confirmation: Confirmed ; Classification: Medical ; Code: [id number] ; Contributor System: [employer] ; Last Updated: 11/19/2019 0:26 EDT ; Life Cycle Date: 11/19/2019 ; Life Cycle Status: Active ; Vocabulary: SNOMED CT Diagnoses(Active) Vaginal bleeding - > 20 wks Date: 11/19/2019 ; Diagnosis Type: Reason For Visit ; Confirmation: Complaint of ; Clinical Dx: Vaginal bleeding - > 20 wks ; Classification: Medical ; Clinical Service: Emergency medicine ; Code: PNED ; Probability: 0 ; Diagnosis Code: [id number] ED Height and Weight Height Source : Measured Height Entry Format : [place] Height, Feet : 5 ft(Converted to: 152 cm, 60 Inch) Height, Inches : 7 Inch(Converted to: 0 ft 7 Inch, 17.78 cm) Clinical Height : 170.18 cm Weight Source, ED : Standing scale Weight Entry Format : [place] Weight, Pounds : 267 lb Clinical Dosing Weight : 121.36 kg Body Surface Area (BSA) : 2.29 m2 Body Mass Index : 41.9 kg/m2 (>HHI) [place] Body Weight (IBW) : 61.16 kg BENJAMIN MONTANA, RN - 11/19/2019 0:24 EDT ED Influenza/Pneumoccocal Vaccine Previous Vaccines from Immunization Schedule : No qualifying data available. BENJAMIN MONTANA RN - 11/19/2019 0:24 EDT Electronically signed by Valery [facility] Conversion Contact Center Team Lead Cerner at 09/13/2022 2:02 PM CDT documented in this encounter Plan of Treatment Upcoming Encounters Date Type Department Care Team (Late st Contact Info) Description 11/09/2024 1:30 PM EDT Audio - Telemedicine [facility] Bariatric Services [address] [address] documented as of this encounter Visit Diagnoses Not on filedocumented in this encounter Care Teams Catalyst Supervisor Relationship Specialty Start Date End Date Eboni Ralph, LABORATORY SECRETARY 1210 [facility] [address], [facility] 2 A, [facility] [address] PCP - General Nurse Practitioner 02/17/24 documented as of this encounter
--- OUTSIDE RECORDS SUMMARY | 2024-11-03 08:43 | XMS_ITS | Encounter Summary ---
Author Organization [employer] Address [address] [place] [address] Care Team Providers Care Health Insurance Sales Agent Name Role Phone Eboni Ralph LIBBY Primary Care Provider Encounter Details Date Type Department Care Team (Late st Contact Info) Description 11/19/2019 Transcribed Document [facility] [place] Family Medicine [facility] [place] [address] ProviderMichela MD [address] [place] [address] Social History Tobacco Use Types Packs/Day [...] MD - 11/19/2019 12:18 AM CDT ED Assessment Entered On: 11/19/2019 0:31 EDT Performed On: 11/19/2019 0:31 EDT by MINO HOBBS Rn ED Quick Look Assessment Level of Consciousness : Alert, Awake Affect/Behavior : Appropriate, Calm, Cooperative Orientation : Oriented x 4 Skin Temperature : Warm Skin Description : Dry MINO HOBBS Rn - 11/19/2019 0:31 EDT ED General-Functional Assess Communication Barrier : None Primary Language : Haitian Any Spiritual/Cultural Needs or Requests : No Currently in Unsafe Situation : No MINO HOBBS Rn - 11/19/2019 0:31 EDT Social Habits Smoking Status : Never (less than 100 in lifetime; none in last 30 days) Smokeless Tobacco Status : Never Desires Tobacco Cessation Calc : 0 MINO HOBBS Rn - 11/19/2019 0:31 EDT Social History (As Of: 11/19/2019 00:31:24 EDT) Tobacco: Never (less than 100 in lifetime) Smoking Status. (Last Updated: 11/19/2019 00:27:26 EDT by BENJAMIN MONTANA, RN) Alcohol: Alcohol Use History No. (Last Updated: 11/19/2019 00:27:30 EDT by BENJAMIN MONTANA, RN) Alcohol Use History No. (Last Updated: 11/19/2019 00:27:33 EDT by BENJAMIN MONTANA, RN) Electronically signed by Tracy Rasmussen Conversion Cemetery Workers Supervisor Cerner at 09/13/2022 2:12 PM CDT documented in this encounter Plan of Treatment Upcoming Encounters Date Type Department Care Team (Late st Contact Info) Description 11/09/2024 1:30 PM EDT Audio - Telemedicine [facility] [address] [facility] [address] [place] [address] documented as of this encounter Visit Diagnoses Not on filedocumented in this encounter Care Teams Health Insurance Sales Agent Relationship Specialty Start Date End Date Eboni Ralph, BEAN PICKER [address] [facility] [address] [facility] [address] [place] [address] PCP - General Nurse Practitioner 02/17/24 documented as of this encounter
--- OUTSIDE RECORDS SUMMARY | 2024-11-03 08:43 | XMS_ITS | Encounter Summary ---
Author Organization [employer] Address [address] [place] [address] Care Team Providers Care Teaching Young Name Role Phone Eboni Ralph LIBBY Primary Care Provider Encounter Details Date Type Department Care Team (Late st Contact Info) Description 11/24/2019 Transcribed Document [facility] [place] [address] ProviderMichela MD [address] [place] [address] Social History Tobacco Use Types Packs/Day Years Used Date Smoking Tobacco: Never Assessed Comments Unknown Sex and Gender Information Value Date Recorded Sex Assigned at Not on file Legal Sex Female 7:00 PM CDT Gender Identity Not on file Sexual Orientation Not on file documented as of this encounter Miscellaneous Notes * Cerner Conversion Note - Michela Nielsen MD - 11/24/2019 2:22 PM CDT [place] [id number] ANIA HARDY :1995 Visit Time:11/24/2019 Your Visit Summary Your Care Team Primary Provider: TYRELL CRAFT Secondary Provider: Your Diagnosis Asthma Medicine refill Vaginal bleeding - < 20 wks Medical Information You may obtain [...] do next Follow-Up Appointments Follow Up with REESE ZUNIGA When Within 2 to 3 days Comments Return for painful bleeding (back or low abdomen), or bleeding more the 1pad per hour Call Dr Zuniga today for an appointment within a week You do not need more Rhogam today Where: [address] [facility] [address] [place] [address]- Business (1) Follow Up with CRISELDA CARLSON When Within 2 to 3 days Where: [address] [place] [address] [facility] (1) Allergies No Known Medication Allergies Immunizations This Visit No Immunizations Found Medications What How Much When Instructions Next Dose albuterol (albuterol CFC free 90 mcg/ inh inhalation aerosol with adapter) 2 Puff(s) Inhalation Four Times A Day Pickup at [place] [address] Pharmacy Information [facility] 347: [address] [facility] [place] [id number] [phone] The home medications listed are only as [...] This Visit (last charted value for your 11/24/2019 visit) Ultrasound 11/24/2019 12:11 PM US OB 2 or 3 Tri Sgl 1st Gest: US OB 2 or 3 Tri Sgl 1st Gest Education Materials Vaginal Bleeding During , Second Trimester A small amount of bleeding (spotting) from the vagina is common during . Sometimes the bleeding is normal and is not a sign of problems, and sometimes it is a sign of something serious. Tell your doctor about any bleeding from your vagina right away. Follow these instructions at home: Activity ??? Follow your doctor's instructions about how active you can be. ??? If needed, make plans for someone to help with your normal activities. ??? Do not exercise or do activities that take a lot of effort until your doctor says that this is safe. ??? Do not lift anything that is heavier than 10 lb (4.5 kg) until your doctor says that this is safe. ??? Do not have sex or orgasms until your doctor says that this is safe. Medicines ??? Take eeze-tdv-[id number] and prescription medicines only as told by your doctor. ??? Do not take aspirin. It can cause bleeding. General instructions ??? Watch your condition for any changes. ??? Write down: ? The number of pads you use each day. ? How often you change pads. ? How soaked (saturated) your pads are. ??? Do not use tampons. ??? Do not douche. ??? If you pass any tissue from your vagina, save it to show to your doctor. ??? Keep all follow-up visits as told by your doctor. This is important. Contact a doctor if: ??? You have vaginal bleeding at any time during . ??? You have cramps. ??? You have a fever that does not get better with medicine. Get help right away if: ??? You have very bad cramps in your back or belly (abdomen). ??? You have contractions. ??? You have chills. ??? You pass large clots or a lot of tissue from your vagina. ??? Your bleeding gets worse. ??? You feel light-headed. ??? You feel weak. ??? You pass out (faint). ??? You are leaking fluid from your vagina. ??? You have a gush of fluid from your vagina. Summary ??? Sometimes vaginal bleeding during is normal and is not a problem. Sometimes it may be a sign of something serious. ??? Tell your doctor about any bleeding from your vagina right away. ??? Follow your doctor's instructions about how active you can be. You may need someone to help you with your normal activities. This information is not intended to replace advice given to you by your health care provider. Make sure you discuss any questions you have with your health care provider. Document Released: 09/27/2014 Document Revised: 06/08/2019 Document Reviewed: 08/14/2017 [employer] Interactive Patient Education ?? 2020 [place]. Emergency Awareness and Preventative Care STROKE is [...] Assistance with quitting is available by contacting 1-659-SRKT-NOW. This is a free resource providing counseling, [...] CPR? There are two easy steps: Call if you see a teen or adult [...] was given the opportunity to ask questions. Patient/Karate Instructor Name: Patient/Karate Instructor Signature: Relationship to Patient: Clinician/Hospital Karate Instructor Signature: Please Provide a Telephone Number Where You Can Be Reached: Is it Permissible To Leave a Message? Date: Electronically signed by Valery, [facility] Conversion Tailor Helper Carmella at 09/13/2022 2:12 PM CDT documented in this encounter Plan of Treatment Upcoming Encounters Date Type Department Care Team (Late st Contact Info) Description 11/09/2024 1:30 PM EDT Audio - Telemedicine [facility] [address] [facility] [address] [place] [address] documented as of this encounter Visit Diagnoses Not on filedocumented in this encounter Care Teams Teaching Young Relationship Specialty Start Date End Date Eboni Ralph, HAMPER MAKER MACHINE [address] [place] [facility] [address], [place] [address] PCP - General Nurse Practitioner 02/17/24 documented as of this encounter
--- OUTSIDE RECORDS SUMMARY | 2024-11-03 08:43 | XMS_ITS | Encounter Summary ---
Author Organization Healthcare Address [address] [place] [address] Care Team Providers Care Patient Admitting Clerk Name Role Phone Yanelis Wilson APRN Primary Care Provider [phone] Lauren Kim METAL BENCH PATTERNMAKER Primary Care Provider [phone] Reason for Visit * Reason Comments Med Refill Encounter Details Date Type Department Care Team (Late st Contact Info) Description 11/17/2021 Refill Family and Community Medicine [address] [place] [address] Yanelis Wilson, METAL BENCH PATTERNMAKER [address] [place] [address] Morbid obesity with body mass index (BMI) of 40.0 or higher (CMS/HCC); Generalized anxiety disorder Social History Tobacco Use Types Packs/Day Years Used Date Smoking Tobacco: Never Smokeless Tobacco: Never Alcohol Use Standard Drinks/Week Comments Never 0 (1 standard drink = 0.6 oz pur e alcohol) PHQ-2 Answer Date Recorded Patient Health Questionnaire-2 Score 0 07/28/2021 Education Answer Date Recorded What is the highest level of school you have completed or the highest degree you have received? Associate degree: academic program 11/07/2020 Comments Unknown Sex and Gender Information Value Date Recorded Sex Assigned at Not on file Legal Sex Female 7:59 PM EDT Gender Identity Not on file Sexual Orientation Not on file COVID-19 Exposure Response Date Recorded In the last 10 days, have yo u been in contact with someone who was confirmed or suspected to have Coronavirus/COVID-19? No / Unsure 11/14/2021 1:49 PM EDT documented as of this encounter Miscellaneous Notes * Telephone Encounter - Roxy Mahajan - 11/20/2021 12:39 PM EDT Patient informed. Dems verified. Stated understanding. * Telephone Encounter - Rashmi Díaz - 11/20/2021 12:26 PM EDT * Telephone Encounter - Yanelis Wilson APRN - 11/20/2021 12:10 PM EDT Done jmb documented in this encounter Plan of Treatment Upcoming Encounters Date Type Department Care Team (Late st Contact Info) Description 12/11/2024 1:15 PM EDT Clinical Support [facility] [address] [place] [address] Agata Thapa, [address] [facility] [address] [place] [address] 10/14/2025 11:00 AM EDT Office Visit Obstetrics & Gynecology [address] [place] [address] Wanda Velarde, METAL BENCH PATTERNMAKER, CN [address] [facility] [address] [place] [address] documented as of this encounter Visit Diagnoses Diagnosis Morbid obesity with body mass index (BMI) of 40.0 or higher (CMS/HCC) Generalized anxiety disorder documented in this encounter Additional Health Concerns Assessment Noted Time A fall risk assessment has been complete d for the patient 07/28/2021 8:05 AM EST documented as of this encounter Care Teams Patient Admitting Clerk Relationship Specialty Start Date End Date Yanelis Wilson APRN [address] [facility] [address] [place] [id number] PCP - General Family Medicine 11/14/21 09/04/23 Lauren Kim APRN [facility] [place] [place] [address] PCP - General Family Medicine 09/05/23 documented as of this encounter
== END 2024-11-03 23:59 | disposition home or self-care (01) ==
LOC: RAD 08:28
PROVIDERS: PCP Physician Assistant; Visit Provider Physician Assistant
DX: E04.2 Nontoxic multinodular goiter (principal)
CPT/HCPCS: 76536

== ENCOUNTER 2024-12-22 09:48 | Outpatient (CLI) | payer MEDICAID, SELFPAY ==
--- OUTSIDE RECORDS SUMMARY | 2024-08-29 17:30 | XMS_ITS ---
Author Organization [facility] Address [address] [facility] [address] [place] [address] Care Team Providers Care Shellfish Dredge Operator Name Role Phone Jairo Ralph Primary Care Provider [phone] JAIRO Ralph APRN Unavailable Unavailable Migration, Provider Unavailable Unavailable REASON FOR VISIT [facility] Conversion Encounter Medications Medication SIG (Take, Route, Frequency, Duration) Notes Start Date End Date Status Norethindrone 0.35 MG 1 tab(s) orally on ce a day Active Omeprazole Magnesium 20 MG 1 tab(s) oral ly once a day Active Synthroid 112 MCG 1 tab(s) orally once a day; Duration: 30 days 08/17/2024 Active Lexapro 20 MG 1 tab(s) orally once a day; Duration: 30 days Active Encounters Encounter Location Date Provider Diagnosis [facility] [address] [facility] [address] [place] [address] 08/29/2024 Provider Migration Plan Of Treatment Medication Medication Name Sig Start Date Stop Date Notes Synthroid 112 MCG 1 tab(s) orally once a day; Duration: 30 days 08/17/2024 Lexapro 20 MG 1 tab(s) orally once a day; Duration: 30 days Next Appt Details Provider Name:Jairo Joaquin, 01/14/2025 03:30:00 PM, [address] [facility], [address], [place], [address], Progress Notes * Romel HARDYOB:1995 (29 yo F)Acc No.[id number]:08/29/2024 Patient: Ania LINARES Provider: Tonya Orantes :1995 A ge:29 Y S ex:Female Date:08/29/2024 Address:[place], [id number] Pcp:Jairo Ralph Subjective: * Chief Complaints: * 1 . [facility] En[facility]. * Medical History: * Medications: T aking Omeprazole Magnesium 20 MG Tablet Delayed Release 1 tab(s) orally once a day , Taking Norethindrone 0.35 MG Tablet 1 tab(s) orally once a day Objective: * Vitals: Assessment: Plan: * Treatment: * * Electronic signature of Prov wileyian Migration on 12/23/2024 at 12:17 PM EDT Sign off status: Pending * Provider: Tonya Orantes Date: 0 08/29/2024 Generated for Panda nayak/Jessi/Jenniferitting on: 0 12/23/2024 12:17 PM EDT
--- OUTSIDE RECORDS SUMMARY | 2024-10-29 05:30 | XMS_ITS ---
Author Organization [facility] PE D ABIEL Address [address] [facility] [address] [facility] [address] [place] [address] Care Team Providers Care Corporate Quality Manager Name Role Phone Eboni Ralph Primary Care Provider [phone] EBONI Ralph APRN Unavailable Unavailable Maria Eugenia Pinedo Unavailable [phone] Allergies No Known Allergies Reason For Referral Reason Please arrange thyro id US at [facility] for enlarged thyroid on exam. Diagnosis 1 Enlarged thyroid (E0 4.9) Referral Organization [facility] Referring Provider First Name Maria Eugenia Referring Provider Last Name Shahida Referring Provider Speciality Family Pra ctice Referred Organization [facility] Referred Address [address] [place] [address], [place] Referred Provider Specialty Diagnostic R adiology General Notes Zehra Case 2024 03:49:21 PM >sent to [facility] to schedule Referral Priority Routine REASON FOR VISIT Belly Button Infected Medications Medication SIG (Take, Route, Frequency, Duration) Notes Start Date End Date Status Synthroid 112 MCG 1 tab(s) orally once a day; Duration: 30 days 08/17/2024 Active Lexapro 20 MG 1 tab(s) orally once a day; Duration: 30 days Active Clotrimazole Anti-Fungal 1 % 1 application Externally Twice a day; Duration: 14 days to abdomen. 10/29/2024 Active Norethindrone 0.35 MG 1 tab(s) orally on ce a day Active Problems Problem Type SNOMED Code ICD Code Onset Dates Problem Status W/U Status Risk Notes Problem Enlarged thyroid (E04.9) Active confirmed Vital Signs Temperature 97.5 degrees Fahrenheit 10/30/19 25 Blood pressure systolic 112 mm Hg 10/30/19 25 Blood pressure diastolic 78 mm Hg 025 Heart Rate 76 /min 10/29/2024 Height 5ft8in in 10/29/2024 Weight 210.6 lbs 10/29/2024 BMI 32.02 kg/m2 10/29/2024 Encounters Encounter Location Date Provider Diagnosis [facility] [address] [place] [address] 10/29/2024 Maria Eugenia Pinedo Fungal skin infection [...] % 1 applicati on Externally Twice a day; Duration: 14 days 10/29/2024 Treatment Notes Assessment Notes [...] 10/29/2024, Please a rrange thyroid US at [facility] for enlarged thyroid on exam., [address], [place], [address], Next Appt Details Follow Up: December or sooner if needed., Reason: Provider Name:Eboni Joaquin, 01/14/2025 03:30:00 PM, [address] [facility], [address], [place], [address], Progress Notes * Hailey HARDYhDOB:1995 (29 yo F)Acc No.[id number]:10/29/2024 Progress Notes Patient: Ania LINARES Provider: SHARMILA Mcfarland :1995 A ge:29 Y S ex:Female Date:10/29/2024 Address:[place], [id number] Pcp:Eboni Ralph Subjective: * Chief Complaints: * [...] Referral To: Reason:Please arrange thyroid US at [facility] for enlarged thyroid on exam. * Follow Up: A ugust or sooner if needed. * * Sign off status: Completed true * Provider: SHARMILA Mcfarland Date: 0 10/29/2024 Generated for Panda nayak/Jessi/Jenniferitting on: 0 12/23/2024 12:18 PM EDT History and Physical Notes * HPI [...] , Please arran ge thyroid US at [facility] for enlarged thyroid on exam.
--- OUTSIDE RECORDS SUMMARY | 2024-10-30 07:04 | XMS_ITS ---
Author Organization [facility] Address [address] [facility] [address] [place] [address] Care Team Providers Care Double Head Machine Operator Name Role Phone Jairo Ralph Primary Care Provider JAIRO Ralph APRN Unavailable Unavailable Maria Eugenia Pinedo Unavailable [phone] Results Component Value Reference Range Notes US THYROID Reviewed date:11/11/2024 11:52:26 AM Interpretation: Performing Lab: Notes/Report: REASON FOR VISIT us order Encounters Encounter Location Date Provider Diagnosis [facility] [address] [facility] [address] [place], [place] [address] 10/30/2024 Maria Eugenia Pinedo Enlarged thyroid E04.9 Assessments Encounter Date Diagnosis (ICD Code) Assessment Notes Treatment Notes Treatment Clinical Notes Section Notes 10/30/2024 Enlarged thyroid (ICD-10 - E04.9) Plan Of Treatment Next Appt Details Provider Name:Jairo Joaquin, 01/14/2025 03:30:00 PM, [address] [facility], [address], [place], [address], Progress Notes * DIANEHailey CranehDOB:1995 (29 yo F)Acc No.[id number]:10/30/2024 Patient: Ania LINARES :1995 A ge:29 Y S ex:Female Address:[facility] [place] [address] Subjective: * Chief Complaints: * U s order * Medical History: * Surgical History: * Hospitalization/Major Diagno stic Procedure: * Medications: Objective: * Vitals: * Physical Examination: Assessment: * Assessment: 1. E nlarged thyroid - E04.9 Plan: * Treatment: * * Procedure Codes: * true * Date: Generated for Panda nayak/Jessi/Kelly on: 0 12/23/2024 12:18 PM EDT
--- OUTSIDE RECORDS SUMMARY | 2024-12-11 13:15 | XMS_ITS | Encounter Summary ---
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 Name Role Phone Lauren Kim APRN Primary Care Provider [phone] Reason for Visit * Reason Comments Genetic Counseling * Consultation (Routine) - Closed Specialty Diagnoses / Procedures Referred By Bandar t Referred To Contact Genetics Diagnoses Family history of cancer of female genital organ Wanda Velarde, [place], CN [address] [facility] [address] [place] [address] Phone: tel: fax: [facility] [address] [facility] [place] [address] Phone: tel: fax: Referral ID Status Reason Start Date Expiration Date V isits Requested Visits Authorized [id number] Closed Specialty Services Required 10/07/2024 04/08/2026 1 1 Encounter Details Date Type Department Care Team (Late st Contact Info) Description 12/11/2024 1:15 PM EDT Clinical Support Pav [facility] Head, Neck & Respiratory [address] [facility] [place] [address] Agata Thapa, GC [address] [facility] [address] [place] [id number] Encounter for nonprocreative genetic counseling (Primary Dx) Social History Tobacco Use Types Packs/Day Years [...] place to sleep or slept in a skilled nursing (including now)? No 06/11/2023 Meally Depression Scale Answer Date Recorded Meally Depression Scale Total 0 04/10/2023 The thought of harming myself has occurred to me . Never 04/10/2023 Utilities Answer Date Recorded In the past 12 months has th e electric, gas, oil, or water [employer] threatened to shut off services in your [...] encounter Miscellaneous Notes * Progress Notes - Agata Thapa, GC - 12/11/2024 1:15 PM EDT Images from the original note were not included. [facility] Clinical Cancer Genetics Consultation Patient Name: Ania Hardy Date of : 1995 Ania is a 29 y.o. year old female who was referred for genetic counseling due to a family historyof cancer. She was accompanied to her visit by her boyfriend. Ms. Hardy has no personal history of cancer. Ms. Hardy provided the following personal history information: Menarche- 14 Total number of pregnancies- 3 Age at first live - 25 Hx - Yes, for 2 months Menopause status- premenopausal control use- Yes, used for 7 years Hormone replacement use- No Mammogram- No Hx Breast Biopsy- DIANELYS/BSO- No Colonoscopy- No Upper endoscopy- No Ms. Hardy was interested in discussing her risk for a hereditary cancer syndrome. FAMILY HISTORY (see pedigree below): - A maternal great-aunt (sister of maternal grandmother) with ovarian cancer at age 40, living at 74 - A maternal great-aunt (sister of maternal grandmother) with ovarian cancer at age 40, atage 65 - A maternal great-grandmother (mother of maternal grandmother) with breast cancer at age 99, at age 99 - A maternal second cousin (daughter of maternal great aunt) with ovarian cancer at age 42, living at 50 - A maternal second cousin (daughter of maternal great aunt) with ovarian cancer at age 32, living at 42 Ms. Hardy also reports several distant family members with cancer including: - A maternal great great grandmother (mother of above mentioned maternal great- grandmother) with ovarian cancer and uterine cancer in her 40s, in her 40s - Three maternal great great aunts (sister of maternal great great grandmother) with ovarian/uterine cancer in their 40s, unknown when - A maternal great great aunt (sister of maternal great great grandmother) with breast cancer in her 40s, at age 49 We do not have the medical records regarding the diagnoses in the patient's family. She denies any Ashkenazi Spiritism ancestry or consanguinity. CANCER RISK ASSESSMENT AND GENETIC COUNSELING: We reviewed the patient's medical and family historyin detail. We also discussed the characteristics of sporadic cancer versus familial cancer versus hereditary cancer syndromes. Family histories typical of hereditary cancer syndromes usually include multiple close relatives diagnosed with the same type of cancer or cancer types that are part of a defined hereditary condition. Hereditary cancer is usually diagnosed at a younger than expected age (<50 years of age) and may involve more than one primary site in a single individual. Regarding the hereditary forms of cancer, autosomal dominant inheritance was reviewed. We briefly discussed potential changes in screening and management guidelines that could occur, based on genetic testing results. We discussed that genetic testing is most informative if we begin testing in a family member that has been diagnosed with cancer. Based on this patient's family history her maternal great-aunt with ovarian cancer would be the best candidate in her family to begin genetic testing with. We can begin genetic testing with an unaffected individual, such as this patient, keeping in mind that a normal test result would not eliminate the patient's cancer risk and needs to be interpreted within the context of the family history. GENETIC TESTING: We discussed in detail that the patient's family history of cancer does not meet specific NCCN criteria for genetic testing at this time. Therefore it is unlikely insurance will cover the cost of genetic testing. We reviewed that the out of pocket cost for genetic testing for a panel through [employer] is $250. The patient expressed understanding of this information and stated she is still interested in pursuing genetic testing because she would like to know about potential cancer risks given her family history. We specifically discussed testing through an expanded panel as the patient expressed a desire to have as much information as possible regarding potential cancer risks. After reviewing the patient???s medical history, family histories, and risk assessment, we discussed genetic testing options. Specifically, we talked about currently available multi-gene panel testing options, including benefits and limitations. ? The patient elected to proceed with the following test: ? CustomNext Cancer (including genes from CancerNext +RNAinsight??? and SMARCA4 and DICER1) APC, RITU, AXIN2, BAP1, BARD1, BMPR1A, BRCA1, BRCA2, BRIP1, CDH1, CDKN2A, CHEK2, EPCAM, FH, FLCN, GREM1, HOXB13, MBD4, MET, MLH1, MSH2, MSH3, MSH6, MUTYH, NF1, NTHL1, PALB2, PMS2, POLD1, POLE, PTEN, RAD51C, RAD51D, RPS20, SMAD4, STK11, TP53, TSC1, TSC2, VHL, SMARCA4 and DICER1 Lab: [facility] ? Turnaround Time:?Approximately 3 weeks ? We explained possible results of genetic testing including positive, negative or a variant of uncertain significance, and briefly discussed the implications of each. Many insurance companies have policies to cover the cost of genetic testing based on personal and/or family history of cancer. The cost of genetic testing can vary depending on whether a patient meets their insurance provider's coverage criteria, co-pays, co-insurance, unmet deductible, etc. It is common for the billing process to take longer than the process of the genetic test itself, so it is usually not possible to cancel a genetic test order after the [id number] cost is determined. However, [employer] does have financial assistance programs which could lower the cost of genetic testing for those who qualify, options for payment plans, etc. PLAN: Blood was drawn and sent to [facility] laboratory for testing via the above panel test. Ania's phone number and/or e-mail will be provided to [facility] when her genetic test order is placed and she should expect a text, automated call, and/or e-mail with an estimate of her [id number]-[id number] cost for this test. If Ania has any questions about billing or cost of this test, she can contact the [facility] Billing Support team directly at [phone] or [email or web address]. Ania can also contact the Billing Support team if she would like to be assessed for the Patient Assistance Program, which may adjust the cost of genetic testing based on financial need. I will contact the patient by TRADE TO REBATE message with the genetic test results when they are available, usually in about 3 weeks from the date that the lab receives the sample. If the results are positive/abnormal, I will contact the patient by phone to discuss the results. The Genetic Information Nondiscrimination Act (JACOB) was reviewed. It was a pleasure to meet with this patient and I remain available to the patient, their physicians, and family for future questions or concerns. I can be reached at [phone]. Total time regarding patient care was approximately 65 minutes. Written information regarding genetic testing was given to the patient at the time of their appointment. * Progress Notes - Agata Thapa GC - 12/11/2024 1:15 PM EDT Attached media from the original note were not included. [facility] Clinical Cancer Genetics Results Note Patient Name: Ania Hardy Date of : 1995 The test performed for Ms. Hardy was CustomNext Cancer (including genes from CancerNext +RNAinsight??? and SMARCA4 and DICER1) panel through [facility] laboratory that involved the analysis of the following genes: APC, RITU, AXIN2, BAP1, BARD1, BMPR1A, BRCA1, BRCA2, BRIP1, CDH1, CDKN2A, CHEK2, EPCAM, FH, FLCN, GREM1, HOXB13, MBD4, MET, MLH1, MSH2, MSH3, MSH6, MUTYH, NF1, NTHL1, PALB2, PMS2, POLD1, POLE, PTEN, RAD51C, RAD51D, RPS20, SMAD4, STK11, TP53, TSC1, TSC2, VHL, SMARCA4, DICER1. Results were disclosed to patient via [employer]/TRADE TO REBATE message. The patient is encouraged to call us directlyif they have any questions/concerns about their genetic testing results. The analysis of the genes listed above was reported as negative; no mutation detected (see attachedresults). Therefore, the patient???s genetic test results do not provide an explanation for her family history of cancer. However, since the patient does not have a mutation, she could not have passed on a mutation in the tested genes to her children. The patient's children do not need to consider genetic testing at this time unless there is a paternal family history of cancer. There are a number of possible explanations for the negative test result. One possibility is that the cancer in her family is not due to an inherited gene mutation. The results could also be negativebecause she has a mutation in one of the tested genes that cannot be detected by current technology, or because she has a mutation in a different gene other than those tested. There is the possibility there is a hereditary cancer condition in the family and she did not inherit it. Therefore we would recommend that the patient's maternal grandmother consider genetic testing based on her extended family history of cancer. Additionally, there is always a very small chance that the laboratory couldmake an error in performing a genetic test. We only use laboratories that are federally certified and that make the best effort to provide accurate test results. The patient???s genetic test results mean that her recommendations for cancer screening and prevention should be based on her family history of cancer. The patient should continue to follow all surveillance recommendations made to her by her physicians. The following recommendations have been developed to be inclusive of all gender and sexual identities to the greatest extent possible. Below, theterms male and female refer to sex assigned at . The patient???s family members should receivecancer screening based on their family history of cancer; suggested recommendations include: BREASTS: For females between the ages of 25 and 39 who do not have any signs of breast cancer (likea lump, nipple changes, or breast pain) and are at average risk, the NCCN recommends being aware ofhow their breasts normally look and feel. This can include checking their breasts themselves each month. They should also see a doctor for a breast exam every 1 to 3 years. Starting at age 40, females should get a breast exam from a doctor at least once a year. They should also get a screening mammogram (ideally using a special kind of 3D imaging called tomosynthesis) every year. If a first-degree relative (parent, sibling, or child) has been diagnosed with breast cancer, females should have yearly mammograms beginning 10 years earlier than that relative's diagnosis or at age 40, whichever isyounger. Females in the family can also be evaluated by a genetic counselor to see if they meet criteria for screening breast MRI in addition to mammography. The [employer] guidelines state breast cancer screening with MRI should be considered in females with greater than a 20% lifetime chance of breast cancer as estimated by a model largely based on family history. This patient's lifetime risk was estimated to be 10.99% according to the ALINA model. Therefore, she does not meet the guideline for annual screening breast MRI. The Laina model was not run as the patient is less than 35 years of age. The risk model calculationscan change management expert time, especially as Ms. Hardy ages and if there are changes to her family history or other personal history risk factors. Ms. Hardy would benefit from another risk assessment in thefuture, especially once she is closer to the age she will begin breast cancer screening to recalculate these risk models. OVARIES: Ovarian cancer screening has not been proven to be beneficial and is not routinely recommended for individuals at average risk. Ania can consider participating in the ovarian cancer screening program at [facility] due to her family history of ovarian cancer. If the patient or her relatives are interested in participating in ovarian cancer screening, the phone number to make an appointment withthe [facility] Ovarian Cancer Screening Research Program is [phone]. UTERUS: Uterine cancer screening is not recommended for individuals at average to increased risk ofuterine cancer. Screening has only been proven beneficial for individuals at very high risk of uterine cancer (40-60%). All patients are encouraged to know the signs and symptoms of uterine cancer. The most common symptom is abnormal vaginal bleeding. In post-menopausal individuals, all vaginal bleeding, regardless of amount, should be evaluated by a physician. PROSTATE: For males who have an average chance of getting prostate cancer, the NCCN suggests talking with a doctor about the risks and benefits of prostate cancer screening (like the PSA blood test and a digital rectal exam) starting at age 45. After that, patients should follow their doctor's advice about when to get checked again. The NCCN does not recommend prostate cancer screening for males after 75 years old or for males who are not expected to live more than 10 more years, except in somespecial cases. COLON: For people ages 45 to 75 who have an average risk of getting colorectal cancer, the NCCN recommends regular screening. There are different ways to do this, like a colonoscopy, flexible sigmoidoscopy, stool test, or a special CT scan called a CT colonography. The best choice depends on talking with your doctor about the pros and cons of each test. People are considered average risk if they do not have: a personal or family history of colorectal cancer; a parent, sibling, or child with advanced colon polyps; a history of having colon polyps themselves; certain health problems like inflammatory bowel disease, cystic fibrosis, or childhood cancer. If someone does have any of these risk factors, they should follow screening advice from their GI doctor or another medical provider. For people over age 76, screening decisions should be made with their doctor, based on their overall health, life expectancy, and past screening history. Anyone, no matter how old, who has symptoms that could be from colorectal cancer - like bleeding from the rectum, new anemia, diarrhea, belly pain, orlosing weight without trying - should tell their doctor about these symptoms right away. PANCREAS: There are currently no well-established successful screening methods to detect early-stage pancreatic cancer. There has been some success in utilizing endoscopic ultrasound (EUS) and endoscopic retrograde cholangiopancreatography (ERCP) in clinical trials evaluating high-risk families. These tests are not currently considered standard of care; however, they can be offered in a high-risksetting. These screenings are currently only recommended for individuals who have a hereditary cause for pancreatic cancer AND a family history of pancreatic cancer. Therefore, screening for Ania is not warranted at this time. Ania should avoid known risk factors for pancreatic cancer, such as smoking, obesity, diabetes, and heavy alcohol use. LUNG: The NCCN says that people should talk with their doctor about the benefits and limitations oflung cancer screening if they are at least 50 years old, have smoked for 20 years or more and/or have smoked the equivalent of a fynt-jeu-wvl for 20 years, and if they are healthy enough to get treatment if cancer is found. If someone chooses to get screened, doctors recommend a special kind of scan called a low-dose CT (LDCT) - a regular chest x-ray is not recommended to screen for lung cancer. Screening is not a replacement for quitting smoking. Anyone who smokes cigarettes or uses other tobacco should try to stop - help to quit smoking is available at www.smokefree.gov. For more information, call the [facility] Lung Cancer Screening administrative operations coordinator at [phone] ([phone]) or [phone], or email [email or web address]. You must have a primary care provider to take part in the lung cancer screening program. In addition to the preceding specific screening recommendations, we encourage this patient and her family members continue to receive routine cancer surveillance as recommended to members of the general population. These screening recommendations are based on the patient???s personal and family hist ory as provided and may change in the future should new information be obtained. The patient is encouraged to contact our office if there is any change in her health status or the health status of her family members, especially if there are additional cancer diagnoses. If the patient has any questions about her genetic test result, the cancer screening recommendations, or if she is having trouble coping with her test results she should feel free to contact me at . documented in this encounter Plan of Treatment Upcoming Encounters Date Type Department Care Team (Late st Contact Info) Description 10/14/2025 11:00 AM EDT Office Visit Obstetrics & Gynecology [address] [place] [address] Wanda Velarde, [place], CN [address] [facility] [address] [place] [address] documented as of this encounter Goals Goal Patient Goal Type Associated Problems Recent Progress Patient-Stated? Author Delayed Delivery Care Plan CPM S22 PP LABOR (OBSTETRICS) No Open Scheduling, Background documented as of this encounter Visit Diagnoses Diagnosis Encounter for nonprocreative genetic counseling- Primary documented in this encounter Additional Health Concerns Active Problems Noted Date Diagnosed Date CPM S22 PP LABOR (OBSTETRICS) 08/29/2022 Assessment Noted Time A fall risk assessment has been complete d for the patient 10/07/2024 11:10 AM EDT A Body Mass Index follow-up plan has been documented for the patient 10/07/2024 11:31 AM EDT documented as of this encounter Care Teams Roof Mechanic Relationship Specialty Start Date End Date Lauren Kim APRN [address] [place] [address] PCP - General Family Medicine 09/05/23 documented as of this encounter
[2024-12-22 15:15] LABS: Monoscreen (Rapid) Negative (Negative)
--- OUTSIDE RECORDS SUMMARY | 2024-12-23 12:18 | XMS_ITS | Patient Health Record ---
Author Organization [facility] Address [address] [place] [address] Care Team Providers Care Career Portals Teacher Name Role Phone Jairo Ralph Primary Care Provider JAIRO Ralph APRN Unavailable Unavailable CaritoMaria Eugenia Unavailable [phone] Maria Eugenia Pinedo Unavailable [phone] Migration, Provider Unavailable Unavailable Allergies No Known Allergies Results Component Value Reference Range Notes Rapid Strep Reviewed date:07/13/2024 07:47:13 PM Interpretation:Positive Performing Lab: Notes/Report: Positive COMPREHENSIVE METABOLIC PANE L (95026) Reviewed date:08/21/2024 08:02:26 AM Interpretation: Performing Lab:CB, [facility] [address] [facility] HospitalVjbzIQ[address] Napoleon Kline Notes/Report: NON-FASTING; NON-FASTING; NON-FASTING GLUCOSE [...] 9) Reviewed date:08/21/2024 08:02:26 AM Interpretation: Performing Lab:[facility], [employer] [employer] TricycleDufqHE[address] Napoleon Kline Notes/Report: NON-FASTING; NON-FASTING; NON-FASTING WHITE [...] MPV 11.3 7.5-12.5 fL ABSOLUTE NEUTROPHILS 5645 1234-6071 cells/uL ABSOLUTE LYMPHOCYTES 2928 850-3900 cells/uL ABSOLUTE MONOCYTES 710 200-950 cells/uL ABSOLUTE EOSINOPHILS 269 15-500 cells/uL ABSOLUTE BASOPHILS 48 0-200 cells/uL NEUTROPHILS 58.8 LYMPHOCYTES 30.5 MONOCYTES 7.4 EOSINOPHILS 2.8 BASOPHILS 0.5 TSH W/REFLEX TO FT4 (84178) Reviewed date:08/21/2024 08:02:26 AM Interpretation: Performing Lab:[facility], [facility] [address], TricycleQgxvZC[address] Napoleon Kline Notes/Report: NON-FASTING; NON-FASTING; NON-FASTING NON-FASTING; NON-FASTING; NON-FASTING TSH W/REFLEX TO FT4 0.32 Reference Range > or = 20 Years 0.40-4.50 Ranges First trimester 0.26-2.66 Second trimester 0.55-2.73 Third trimester 0.43-2.91 T4, FREE 1.2 0.8-1.8 ng/dL US THYROID Reviewed date:11/11/2024 11:52:26 AM Interpretation: Performing Lab: Notes/Report: Reason For Referral Reason Please arrange thyro id US at [facility] for enlarged thyroid on exam. Diagnosis 1 Enlarged thyroid (E0 4.9) Referral Organization [facility] Referring Provider First Name Maria Eugenia Referring Provider Last Name Shahida Referring Provider Speciality Family Pra ctice Referred Organization [facility] Referred Address [address] [facility] [address] [facility], [place], [place],[address],[place] Referred Provider Specialty Diagnostic R adiology General Notes Zehra Case 2024 03:49:21 PM >sent to [facility] to schedule Referral Priority Routine Medications [...] Problem Status W/U Status Risk Notes Problem Mixed anxiety and depressive disorder (471296769) Depression with anxiety (F41.8) Active confirmed Problem Body mass index 40+ - morbidly obese (489833280) BMI 40.0-44.9, adult (Z68.41) Active confirmed Problem Leukocytosis (647838529) Leukocytosis (D72.829) Active confirmed Problem Acquired hypothyroidism (110303213) Acquired hypothyroidism (E03.9) Active confirmed Problem Goiter (6266999) Enlarged thyroi d (E04.9) Active confirmed Problem Leukocytosis (128652093) Leukocytosis, unspecified type (D72.829) Active confirmed Vital Signs Heart Rate 76 /min 10/29/2024 Temperature 97.5 degrees Fahrenheit 10/29/2024 Blood pressure diastolic 78 mm Hg 10/29/2024 Height 5ft8in in 10/29/2024 Blood pressure systolic 112 mm Hg 10/29/2024 Weight 210.6 lbs 10/29/2024 BMI 32.02 kg/m2 10/29/2024 Encounters Encounter Location Date Provider Diagnosis [facility] [address] [facility] [address] [place], [place] [address] 08/29/2024 Provider Migration [facility] [address] [place], [place] [address] 02/13/2024 Jairo Ralph Routine medical exam Z00.00 ; Elevated blood pressure reading R03.0 ; Acquired hypothyroidism E03.9 ; Depression with anxiety F41.8 and BMI 40.0-44.9, adult Z68.41 [facility] [address] [facility] [address] [place] [address] 07/13/2024 Maria Eugenia Arzate Strep sore throat J02.0 [facility] [address] [place], [place] [address] 08/13/2024 Jairo Ralph Depression with anxiety F41.8 ; Leukocytosis D72.829 ; Acquired hypothyroidism E03.9 and Routine medical exam Z00.00 [facility] [address] [facility] [address] [place], [place] [address] 10/29/2024 Maria Eugenia Piendo Fungal skin infectio n B36.9 and Enlarged thyroid E04.9 [facility] [address] [facility] [address] [place], [place] [address] 08/17/2024 Jairo Ralph [facility] [address] [facility] [address] [place], [place] [address] 10/30/2024 Maria Eugenia Pinedo Enlarged thyroid E04 .9 Assessments Encounter Date Diagnosis (ICD Code) Assessment Notes Treatment Notes Treatment Clinical Notes Section Notes 02/13/2024 Routine medical exam (ICD-10 - Z00.00) [...] Will check TSH and treat as indicated 02/13/2024 Depression with anxiety (ICD-10 - F41.8) Well controlled on lexapro. No changes made today 02/13/2024 BMI 40.0-44.9, adult (ICD-10 - Z68.41) Discussed current BMI, need for diet, exercise, weight loss. Has appointment at bariatric center [facility] later this month 08/13/2024 Routine medical exam (ICD-10 - Z00.00) Plan Of Treatment Pending Test Test Name Order Date X ray : Hip, Left 12/03/2023 M-Complete Blood Count Auto Diff 07/09/2 024 M-Comprehensive Metabolic Panel 02/13/20 24 M-Lipid Panel 02/13/2024 M-Thyroid Stimulating Hormone 02/13/2024 M-Peripheral Smear Review 11/21/2023 Next Appt Details Provider Name:Jairo Jasso Angelo Vegatomy, 01/14/2025 03:30:00 PM, [address], [place], [address], Insurance Providers Payer Name Payer Address Payer Phone Subscriber Number Group Number Insured Name Patient Relationship to Insured Coverage Start Date Coverage End Date [facility] [address] [place] [address] [phone] [id number] Ania Hardy Self - patient is the insured Medical (General) History Medical History History ICD Code hypothyroidism depression asthma Right SI Joint Dysfunction. Surgical History Surgery Date(Month/Year) C section X2 Gastric Bypass Surgery 06/16/2024
--- OUTSIDE RECORDS SUMMARY | 2024-12-23 12:18 | XMS_ITS | Encounter Summary ---
Author Organization [facility] Address [address] [place] [id number] Care Team Providers Care Tape Recorder Repairer Name Role Phone Lauren Kim APRN Primary Care Provider [phone] Encounter Details Date Type Department Care Team (Late st Contact Info) Description 12/01/2024 Telephone PAV [facility] Counseling [address] [facility], 1st [place] [address] Agata Thapa, GC [address] [facility] [address] [place] [address] Social History Tobacco Use Types Packs/Day Years [...] place to sleep or slept in a alf (including now)? No 06/11/2023 [place] Depression Scale Answer Date Recorded [place] Depression Scale Total 0 04/10/2023 The thought [...] encounter Miscellaneous Notes * Telephone Encounter - Maria Eugenia Conner - 12/01/2024 3:44 PM EDT Genetic Counseling Animal Care Specialist called patient to obtain family history information prior to their visit. Patient unable to provide info at this time so [facility] reminded patient of their upcoming genetic counseling appointment and received verbal confirmation they would be attending. Asked patient to please fill out family history questionnaire via Milabra before their visit. Confirmed familyhistory collected during annual exam and clarified infomation for pedigree. documented in this encounter Plan of Treatment Upcoming Encounters Date Type Department Care Team (Late st Contact Info) Description 10/14/2025 11:00 AM EDT Office Visit Obstetrics & Gynecology [address] [place] [address] Wanda Velarde, COBOL DEVELOPER, CNM [address] [place] [address] documented as of this encounter [...] documented as of this encounter Care Teams Tape Recorder Repairer Relationship Specialty Start Date End Date Lauren Kim, COBOL DEVELOPER [address] [place] [address] PCP - General Family Medicine 09/05/23 documented as of this encounter
--- OUTSIDE RECORDS SUMMARY | 2024-12-23 12:18 | XMS_ITS | Encounter Summary ---
Author Organization [facility] Address [address] [place] [address] Care Team Providers Care Small Battery Plate Assembler Name Role Phone Lauren Kim APRN Primary Care Provider [phone] Encounter Details Date Type Department Care Team (Latest Contact Info) Description 12/11/2024 Travel Social History Tobacco Use Types Packs/Day [...] in a correction (including now)? No 06/11/2023 [place] Depression Scale Answer Date Recorded [place] Depression Scale Total 0 04/10/2023 The thought [...] EDT Office Visit Obstetrics & Gynecology [address] [place] [address] Wanda Velarde, MOTORBIKE COURIER, CNM [address] [facility] [address] [place] [address] documented as of this encounter [...] documented as of this encounter Care Teams Small Battery Plate Assembler Relationship Specialty Start Date End Date Lauren Kim APRN [address] [place] [address] PCP - General Family Medicine 09/05/23 documented as of this encounter
--- OUTSIDE RECORDS SUMMARY | 2024-12-23 12:18 | XMS_ITS | Encounter Summary ---
Author Organization Healthcare Address [address] [place] [address] Care Team Providers Care Studio Receptionist Name Role Phone Yanelis Wilson APRN Primary Care Provider [phone] Lauren Kim HEAD OPERATOR Primary Care Provider [phone] Reason for Visit * Reason Comments Med Refill Encounter Details Date Type Department Care Team (Late st Contact Info) Description 11/17/2021 Refill Family [facility] Community Medicine [address] [place] [address] Yanelis Wilson, HEAD OPERATOR [address] [place] [address] Morbid obesity with body mass [...] EDT Office Visit Obstetrics & Gynecology [address] [place] [address] Wanda Velarde APRN, CN [address] [facility] [address] [place] [address] documented as of this encounter Visit Diagnoses Diagnosis Morbid obesity with body mass index (BMI) of 40.0 or higher (CMS/[facility]) Generalized anxiety disorder documented in this encounter Additional Health Concerns Assessment Noted Time A fall risk assessment has been complete d for the patient 07/28/2021 8:05 AM EST documented as of this encounter Care Teams Studio Receptionist Relationship Specialty Start Date End Date Yanelis Wilson APRN [address] [facility] [address] [place] [address] PCP - General Family Medicine 11/14/21 09/04/23 Lauren Kim APRN [address] [place] [address] PCP - General Family Medicine 09/05/23 documented as of this encounter
--- OUTSIDE RECORDS SUMMARY | 2024-12-23 12:18 | XMS_ITS | Clinical Summary ---
Author Organization [facility] Address [address] [place] [address] Care Team Providers Care Rubber Calender Helper Name Role Phone Lauren Kim APRN Primary Care Provider [phone] Allergies No known active allergies Medications Vit-Fe Fumarate-FA ( 1+1 PO) Take by mouth. Active albuterol 108 (90 Base) MCG/ACT inhalerIndicatio ns:Environmental and seasonal allergies Inhale 2 puffs every 6 (six) hours if needed for wheezing. 18 g 11 06/11/2023 Active escitalopram (Lexapro) 20 MG tabletIndication s:Generalized anxiety disorder,Morbid obesity with body mass index (BMI) of 40.0 or higher (CMS/HCC) Take 1 tablet (20 mg) by mouth 1 (one) time each day. 90 tablet 3 06/11/2023 Active triamcinolone (Kenalog) 0.025 % ointmentIndicati ons:Other eczema Apply 2 x daily, large area 454 g 06/11/2023 Active methocarbamol (Robaxin) 750 MG tabletIndication s:Sacroiliac joint dysfunction of right side Take 1 tablet (750 mg) by mouth 3 (three) times a day if needed for muscle spasms for up to 28 days. 42 tablet 1 08/06/2023 Active levothyroxine (Synthroid, Levoxyl) 125 MCG tabletIndication s:Hypothyroidism , unspecified type TAKE 1 TABLET BY MOUTH 1 (ONE) TIME EACH DAY BEFORE BREAKFAST. 30 tablet 10 09/30/2023 Active norethindrone-et hinyl estradiol (Quang 06/15) 1-20 MG-MCG tabletIndication s:Surveillance for control, oral contraceptives,F amily planning Take 1 tablet by mouth daily. 21 tablet 12 10/07/2024 Active Active Problems Problem Noted Date Diagnosed [...] Routine general medical exam ination at a health care facility 07/28/2021 11/26/2022 Other ovarian cyst, left side 09/22/2020 07/28/2021 Anxiety and depression 07/18/202007/28 Bicornuate uterus 05/10/2020 07/28/2021 Encounters Date Type Department Care Team Description 12/11/2024 1:15 PM EDT Clinical Support [facility] [address] [place] [address] Agata Thapa, GC Encounter for nonprocreative genetic counseling (Primary Dx) 12/11/2024 Travel 12/10/2024 Travel 12/09/2024 Telephone [facility] Res[facility] [address] [place] [address] Agata Thapa, GC 12/01/2024 Telephone [facility] [address] [place] [address] Agata Thapa, GC 10/12/2024 Telephone [facility] [address] [place] [address] Agata Thapa, GC 10/07/2024 11:00 AM EDT Office Visit Obstetrics & Gynecology [address] [place] [address] Wanda Velarde, FOOD PRODUCTION ASSOCIATE, CNM Encounter for gynecological examination without abnormal finding (Primary Dx); Surveillance for control, oral contraceptives; Family planning; Family history of cancer of female genital organ 10/07/2024 Travel 10/06/2024 Travel from Last 3 Months Immunizations Immunization Administration [...] Chronic Kidney Disease (NKF Classification) Mother Angela Yoder Hypothyroidism Mother Angela Yoder Kidney disease Mother Angela Yoder Miscarriages / Stillbirths Mother Angela Yoder Obesity Mother Angela Yoder abnormal pap Mother Angela Yoder Ovarian cancer [...] place to sleep or slept in a half-way (including now)? No 06/11/2023 [place] Depression Scale Answer Date Recorded [place] Depression Scale Total 0 04/10/2023 The thought [...] EDT Office Visit Obstetrics & Gynecology [address] [place] [address] Wanda Velarde, FOOD PRODUCTION ASSOCIATE, CNM [address] [facility] [address] [place] [address] Health Maintenance Due Date Last Done Comments [facility]-Infant/Child/Adol SDOH Screenings 1997 HPV Vaccines (1 - 3-dose series) 2012 [facility]- SDOH Screenings 2015 [facility]-Adult SDOH Screenings 2015 [facility]-Hepatitis B Vaccines (1 of 3 - 19+ 3-dose series) 2016 RIJ-CAEIN-12 Vaccine ( season) 2024 11/29/2021, 03/03/2021, 08/07/2020, Additional history exists [facility]-Influenza Vaccine (#1) 2025 03/08/2021, [facility]-Depression Screening 10/07/2025 10/07/2024, 03/27 [facility]-Pap Smear [...] 10:41 AM EST) Case Report Cytology Case: [id number] Authorizing Provider: Adina Mike MD Collected: 05/08/2023 1041 Ordering Location: Obstetrics & Gynecology Received: 05/09/2023 1130 First Screen: Angela Holcomb Specimen: ThinPrep Pap Test, Liquid-Based Cervical/Vaginal 05/22/2023 11:13 AM EST [facility] Interpretation NEGATIVE FOR INTRAEPITHELIAL LESION OR MALIGNANCY 05/22/2023 11:13 AM EST [facility] at 1113 EST Specimen Adequacy Satisfactory for evaluation; endocervical/sharpe sformation zone component absent/insufficie nt. Slide scanned and imaged by ThinPrep Imaging System with manual review of all selected jauregui. 05/22/2023 11:13 AM EST [facility] Cervical cytology is a screening test [...] results is suggested (please call Microbiology at [phone] for results). 05/22/2023 11:13 AM EST [facility] Menstrual Status Post- 023 11:13 AM EST [facility] Contraceptive History Not Applicable 05/22/2023 11:13 AM EST [facility] Screening Type Routine Screen 2022 11:13 AM EST [facility] High Risk? No 05/22/2023 11:13 AM EST [facility] HPV Testing Requested? Request HPV testing if ASCUS or LSIL. 05/22/2023 11:13 AM EST [facility] Previous Cancer History No 05/22/2023 11:13 AM EST [facility] Clinical Information Z01.419, Z12.72 - Smear, vaginal, as part of routine gynecological examination [ICD-10-CM] 05/22/2023 11:13 AM EST [facility] Swab Vaginal and cervical cytologic material / Unknown Non-blood Collection / Unknown 05/08/2023 10:41 AM EST 05/09/2023 11:30 AM EST Adina Mike MD LAB CYTOLOGY ORDERABLES Final Result Performing Organization Address City/[facility]/ZIP Co de Phone Number [facility] [address] [place] [address] * HIV 1 & 2 Antibody/Antigen Screen (09/24/2022 4:07 PM EDT) Pathologist [facility] HIV 1 & 2 Antibody/Antigen Screen Non Reactive Non Reactive 09/24/2022 6:50 PM EDT [facility] Comment:Screening for HIV 1 & 2 antibodies, and P24 antigen is NONREACTIVE. No confirmatory testing is required. Blood Venous blood specimen / Unknown Venipuncture / Unknown 09/24/2022 4:07 PM EDT 09/24/2022 6:21 PM EDT Adina Mike MD LAB BLOOD ORDERABLES Fin al Result Performing Organization Address City/[facility]/ZIP Co de Phone Number [facility] [address] [place] [address] * Hepatitis C Antibody (09/24/2022 4:07 PM EDT) Hepatitis C Antibody Negative Negative 09/24/2022 6:50 PM EDT [facility] Blood Venous blood specimen / Unknown Venipuncture / Unknown 09/24/2022 4:07 PM EDT 09/24/2022 6:21 PM EDT Adina Mike MD LAB BLOOD ORDERABLES Fin al Result [facility] [address] [place] [address], [place] [address] from Last 3 Months or Most Recently Relevant to Health Maintenance Additional Health Concerns Active Problems Noted Date Diagnosed Date CPM S22 PP LABOR (OBSTETRICS) 08/29/2022 [place] [address] [facility] MEDICAID [place] Care Teams Rubber Calender Helper Relationship Specialty Start Date End Date Lauren Kim APRN [address] [place] [address] PCP - General Family Medicine 09/05/23
--- OUTSIDE RECORDS SUMMARY | 2024-12-23 12:18 | XMS_ITS | Encounter Summary ---
Author Organization [facility] Address [address] [place] [address] Care Team Providers Care Tribal Judge Name Role Phone Provider, [facility] Primary Care Provid er Unavailable Jaiden Montenegro MD Primary Care Provider [phone] Denis Ramirez MD Primary Care Provider aYnelis Wilson APRN Primary Care Provider [phone] Lauren Kim APRN Primary Care Provider [phone] Encounter Details Date Type Department Care Team (Late st Contact Info) Description 10/26/2020 Orders Only Obstetrics & Gynecology [address] [place] [address] Shaylee Forbes Social History Tobacco [...] EDT Office Visit Obstetrics & Gynecology [address] [place] [address] Wanda Velarde, LIBBY, CNM [address] [facility] [address] [place] [address] documented as of this encounter Visit Diagnoses Not on filedocumented in this encounter Care Teams Tribal Judge Relationship Specialty Start Date End Date Provider, Timoteo Martinez PCP - General 11/07/2007/27 Jaiden Montenegro MD [address] [place] [address] PCP - General Internal Medicine 07/28/21 11/12/21 Denis Ramirez MD [address] [place] [address] PCP - General Family Medicine 11/13/21 11/13/21 Yanelis Wilson APRN [address] [place] [address] PCP - General Family Medicine 11/14/21 09/04/23 Lauren Kim APRN [address] [place] [address] PCP - General Family Medicine 09/05/23 documented as of this encounter
--- OUTSIDE RECORDS SUMMARY | 2024-12-23 12:18 | XMS_ITS | Encounter Summary ---
Author Organization [facility] Address [address] [place] [id number] Care Team Providers Care Overage Shortage And Damage Clerk Name Role Phone Lauren Kim APRN Primary Care Provider [phone] Encounter Details Date Type Department Care Team (Late st Contact Info) Description 12/09/2024 Telephone Pav [facility] Head[facility] Neck [facility] Respiratory [address] [facility], 2nd [place] [address] Agata Thapa, [address] [facility] [address] [place] [address] Social History Tobacco Use Types Packs/Day Years [...] in a longterm (including now)? No 06/11/2023 [place] Depression Scale Answer Date Recorded [place] Depression Scale Total 0 04/10/2023 The thought [...] * Telephone Encounter - Soni Cintron - 12/09/2024 10:36 AM EDT [facility] called pt to give patient questionnaire reminder and answer any questions she might have prior to upcoming appt. LVM documented in this encounter Plan of Treatment Upcoming Encounters Date Type Department Care Team (Late st Contact Info) Description 10/14/2025 11:00 AM EDT Office Visit Obstetrics & Gynecology [address] [place] [address] Wanda Velarde, OTHER SPATIAL SCIENTIST, CNM [address] [place] [address] documented as of this encounter [...] documented as of this encounter Care Teams Overage Shortage And Damage Clerk Relationship Specialty Start Date End Date Lauren Kim APRN [address] [place] [address] PCP - General Family Medicine 09/05/23 documented as of this encounter
--- OUTSIDE RECORDS SUMMARY | 2024-12-23 12:18 | XMS_ITS | Encounter Summary ---
Author Organization Healthcare Address [address] [place] [address] Care Team Providers Care Retail And Promotions Coordinator Name Role Phone Provider, [facility] Primary Care Provid er Unavailable Jaiden Montenegro MD Primary Care Provider [phone] Denis Ramirez MD Primary Care Provider Yanelis Wilson APRN Primary Care Provider [phone] Lauren Kim APRN Primary Care Provider [phone] Reason for Visit * Reason Comments Med Refill Encounter Details Date Type Department Care Team (Late st Contact Info) Description 06/28/2021 Refill [place] [facility] [address] [place] [address] Ayanna Huerta MD [address] [place] [address] Social History Tobacco Use Types Packs/Day [...] EDT Office Visit Obstetrics & Gynecology [address] [place] [address] Wanda Velarde, CHEMICAL ENGINEERING TECHNICIAN, CNM [address] [facility] [address] [place] [address] documented as of this encounter Visit Diagnoses Not on filedocumented in this encounter Care Teams Retail And Promotions Coordinator Relationship Specialty Start Date End Date Provider, Timoteo Ugashik PCP - General 11/07/2007/27 Jaiden Montenegro MD [address] [place] [address] PCP - General Internal Medicine 07/28/21 11/12/21 Denis Ramirez MD [address] [facility] [address] [place] [address] PCP - General Family Medicine 11/13/21 11/13/21 Yanelis Wilson, CHEMICAL ENGINEERING TECHNICIAN [address] [place] [address] PCP - General Family Medicine 11/14/21 09/04/23 Lauren Kim, CHEMICAL ENGINEERING TECHNICIAN [address] [place] [address] PCP - General Family Medicine 09/05/23 documented as of this encounter
--- OUTSIDE RECORDS SUMMARY | 2024-12-23 12:18 | XMS_ITS | Encounter Summary ---
Author Organization [facility] Address [address] [place] [address] Care Team Providers Care Study Coordinator Name Role Phone Lauren Kim APRN Primary Care Provider [phone] Encounter Details Date Type Department Care Team (Latest Contact Info) Description 12/10/2024 Travel Social History Tobacco Use Types Packs/Day [...] place to sleep or slept in a halfway (including now)? No 06/11/2023 Ceiba Depression Scale Answer Date Recorded Ceiba Depression Scale Total 0 04/10/2023 The thought [...] EDT Office Visit Obstetrics & Gynecology [address] [place] [address] Wanda Velarde, FOOTWEAR MACHINERY INSTRUCTOR, CNM [address] [facility] [address] [place] [address] documented as of this encounter [...] documented as of this encounter Care Teams Study Coordinator Relationship Specialty Start Date End Date Lauren Kim APRN [address] [place] [id number] PCP - General Family Medicine 09/05/23 documented as of this encounter
--- OUTSIDE RECORDS SUMMARY | 2024-12-23 12:18 | XMS_ITS | Clinical Summary ---
[facility] Organization [facility] Address [address] [place] [address] Care Team Providers Care Food Mixer Name Role Phone Shailesh Nelson MD Primary Care Provider + Allergies No known active allergies Medications No known medications Immunizations Immunization Administration Dates Next Due Rho (D) Immune Globulin 10/17/2019 Social History Tobacco Use Types Packs/Day Years Used Date Smoking Tobacco: Never Smokeless Tobacco: Never Alcohol Use Standard Drinks/Week Comments Not Currently 0 (1 standard drink = 0.6 oz pur e alcohol) Abuse Screen Answer Date Recorded Unsafe at Home or Work/School Not on file Feels Threatened by Someone? Not on file 04/2023 Does Anyone Keep You from Co ntacting Others or Doint Things Outside the Home? Not on file 03/07/2023 Physical Sign of Abuse Present Not on file 1 Housing Stability Answer Date Recorded Current Living Arrangements Not on file 02/24 Potentially Unsafe Housing Conditions Not on iesha e 03/07/2023 Family and Community Support Answer Dave e Recorded Help with Day-to-Day Activities Not on file 03/07/2023 Lonely or Isolated Not on file 03/07/2023 Employment Answer Date Recorded Do you want help finding or keeping work or a nati b? Not on file 03/07/2023 Disabilities Answer Date Recorded Concentrating, Remembering, or Making Decisions Difficulty Not on file 03/07/2023 Doing Errands Independently Difficulty Not on fi le 03/07/2023 Education Answer Date Recorded Help with school or training? Not on file Preferred Language Not on file 03/07/2023 Comments Unknown Sex and Gender Information Value Date Recorded Sex Assigned at Not on file Legal Sex Female 9:04 AM EDT Gender Identity Not on file Sexual Orientation Not on file Last Filed Vital Signs Vital Sign Reading Time Taken Comments Blood Pressure 129/86 10/17/2019 5:34 PM EDT Pulse 115 10/17/2019 5:34 PM EDT Temperature 37.5 C (99.5 F) 10/17/2019 12:07 PM EDT 98.4 oral Respiratory Rate 16 10/17/2019 5:34 PM EDT Oxygen Saturation 98% 10/17/2019 5:34 PM EDT Inhaled Oxygen Concentration - - Weight 111 kg (245 lb) 10/17/2019 12:07 PM EDT Height 170.2 cm (5' 7 ) 10/17/2019 12:07 PM EDT Body Mass Index 38.37 10/17/2019 12:07 PM EDT Plan of Treatment Health Maintenance Due Date Last Done Comments Annual Gynecologic Pelvic an d Breast Exam 1997 TDAP/TD VACCINES (1 - Tdap) 2016 ANNUAL PHYSICAL 10/20/2019 HEPATITIS C SCREENING 10/20/2019 COVID-19 Vaccine (2023-2 5 season) 2024 INFLUENZA VACCINE 02/24/2025 Pneumococcal Vaccine 0-49 Aged Out No longer eligible based on patient's age to complete this topic Insurance MEDICAID PENDING on file [facility] [place] [id number] Care Teams Food Mixer Relationship Specialty Start Date End Date Shailesh Nelson MD PCP - General Family Medicine 09/30/19
== END 2024-12-22 23:59 | disposition home or self-care (01) ==
LOC: LAB.DROPOF 12-23 12:16
PROVIDERS: PCP Nurse Practitioner Family; Visit Provider Nurse Practitioner Family
DX: J02.9 Acute pharyngitis, unspecified (principal); R50.9 Fever, unspecified
CPT/HCPCS: 86318